=== PATIENT | male | born 1960 | race Caucasian/White ===

== ENCOUNTER → 2017-03-31 10:26 | Outpatient (CLI) | payer OTHER, SELFPAY ==
--- NOTE | 2017-03-31 08:00 | PET_ITS ---
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 COMPARISON EXAMINATION: CT of the chest, abdomen and pelvis reports dated 03/03/17, previous FDG PET study dated 07/24/15. INDEX LESION SIZE SUV INTERPRETATION NEW: Precarinal anterior, carinal level posterior mediastinum 53.9 mm largest (frame 238) 5.8 (max) Fulfills quantitative criteria for viable neoplasm NEW: Left adrenal gland 3.2 Fulfills quantitative criteria for viable neoplasm NEW: Right upper pelvic mesentery-soft tissue mass, lymph node 15.6 mm (frame 107) 3.5 Fulfills quantitative criteria for viable neoplasm NEW: Left and right lobe hepatic parenchyma 48.7 mm largest (frame 154) 10.7 (max) ratio > 2.0 Fulfills quantitative criteria for viable neoplasm PREVIOUS: Gastroesophageal junction, upper abdomen soft tissue adenopathy Demonstrate metabolic resolution on the current examination TECHNIQUE: Following the intravenous administration of 15 mCi of F-18 deoxyglucose via the right hand, multiplanar image acquisitions of the neck, chest, abdomen and pelvis to level of mid thigh, obtained at one hour post radiopharmaceutical administration contemporaneously interpreted with the current CT of the neck, chest, abdomen and pelvis to level of mid thigh, dated 03/31/[address] of the chest, abdomen and pelvis reports dated 03/03/17, previous FDG PET study dated 07/24/15 reveal: SERUM GLUCOSE LEVEL: 127 mg/dl. HEIGHT: 73 inches. WEIGHT: 180 lbs. FINDINGS: 1. Newly identified increased glucose metabolism is manifest in the precarinal anterior and carinal level posterior mediastinum. Uptake corresponds to soft tissue adenopathy, mass formation. The calculated maximum standard uptake value is 5.8. The maximal axial diameter of the largest metabolic abnormality is 53.9 mm. 2. Enhanced glucose concentration is currently identified in the left upper abdomen contiguous to the left adrenal gland. The calculated maximum standard uptake value is 3.2. 3. Facilitated glucose concentration noted in the right upper pelvic mesentery corresponding to soft tissue lymph node, mass within the pelvic mesenteric fat. The calculated standard uptake value is noted to be 3.5. The maximal axial diameter of the metabolic abnormality is 15.6 mm. 4. Augmented glucose concentration is demonstrated in the left lobe hepatic parenchyma (2.7/2.1) involving segment IV and right upper posterior abdomen involving the right lobe of the liver in the distribution of segment VIII. The calculated maximum standard uptake value is noted to be 10.7 with a lesion to liver background ratio greater than 2.0. The largest corresponding metabolic abnormality demonstrates a maximal axial diameter of 48.7 mm (transverse). 5. Normal physiologic distribution of the radiopharmaceutical is apparent in the splenic parenchyma, both renal units, bladder and visualized intestinal tract. There is uniform distribution of the radiopharmaceutical concentration compared on the cerebellar hemispheres and cerebral cortex. Diffuse intestinal tract activity is noted throughout all four quadrants of the abdominal-pelvic retroperitoneum, mesentery consistent with normal physiologic distribution of the radiopharmaceutical. Pertinent CT findings are as follows. CHEST: Atherosclerotic calcification is defined in the thoracic aorta without evidence of dilatation, aneurysm formation. Coronary arterial calcification is observed. There is evidence of previous partial esophagectomy with gastric pull-through procedure. Right-left subcentimeter axillary soft tissue densities are ametabolic. There are no parenchymal densities-nodules demonstrated in the right-left hemithorax manifesting quantitatively significant increased glucose metabolism. A right hemithorax pleural effusion demonstrates no evidence of facilitated glucose metabolism. ABDOMEN AND PELVIS: Atherosclerotic calcification is defined in the abdominal aorta without evidence of dilatation, aneurysm formation. Pelvic arterial calcification is observed. Bilateral inguinal soft tissue densities are non-glucose avid. Calcified phlebolith formation is noted in the bilateral lower hemipelvis. There are dystrophic calcifications within the prostate gland without evidence of facilitated glucose metabolism. SKELETAL: Degenerative changes defined in the cervical, thoracic and lumbar spine demonstrate no evidence for glucose hypermetabolism. PET/PET/CT Tumor Base -Thigh Subs IMPRESSION: 1. ABNORMAL EXAMINATION INDICATIVE OF MALIGNANT VIABLE NEOPLASM. 2. Increased glucose concentration newly defined in the precarinal anterior and carinal level posterior mediastinum fulfills quantitative criteria for viable neoplasm. (VanLaura et al, Journal of Clinical Oncology 16:2142, 1998). 3. Viable neoplasm is demonstrated in the left adrenal gland. (Brett, Journal of Nuclear Medicine 42:151 P 2002. Ijeoma winn al, Journal of Nuclear Medicine 45:1340, 2004). 4. The increase in glucose concentration noted in the right upper pelvic mesentery corresponding to soft tissue density fulfills quantitative criteria for viable neoplasm. 5. Visualized left and right lobe hepatic parenchymal hypermetabolic abnormalities fulfill quantitative criteria for viable neoplasm. (Delberomel et al, Archives of Surgery, 133:510 1998). 6. The previously identified gastroesophageal junction, gastric cardia, as well as upper abdomen perigastric soft tissue adenopathy hypermetabolic abnormalities noted on the FDG PET study dated 07/24/15 are not apparent on the current examination. 7. Overall, compared to the prior FDG PET study dated 07/24/15, there is interim development of multifocal defined viable neoplastic disease. There is interim metabolic resolution of the prior defined gastroesophageal junction, upper abdominal soft tissue adenopathy hypermetabolic abnormalities. Electronic Signature Caesar Brown D.O. Electronically Signed: Caesar Brown DO at 23:42 EST Tel , Service support ,
== END ==
PROVIDERS: Family Provider Family Medicine; PCP Family Medicine
DX: C16.0 Malignant neoplasm of cardia (principal)
CPT/HCPCS: 78815; A9552; A4216

== ENCOUNTER 2017-06-12 14:10 | Inpatient (IN) | payer OTHER, SELFPAY ==
[2017-06-12] VITALS (12 sets, daily range): BP systolic 72–107; BP diastolic 48–72; PULSE 80–101; RESP 12–22; TEMP 36.4–36.8; O2SAT 90–99; BMI 20.9; BMI 21.0
--- NOTE | 2017-06-12 14:35 | RAD_ITS ---
STUDY: X-RAY CHEST REASON FOR EXAM: Male, 57 years old. FEVER OF 102 AT HOME. HX OF ESOPHOGIS AND LIVER CA. RECENT SLEEP ASPIRATION PNEUMONIA TECHNIQUE: Frontal and lateral views of the chest. COMPARISON: None. FINDINGS: Ill-defined airspace opacities are seen in the right and left lung bases more prominent in the right middle lobe and right lower lobe are consistent with bilateral pneumonia. Small bilateral pleural effusions are noted. Normal size heart. Normal mediastinum and paulie. Normal visualized pulmonary arteries. Normal visualized aortic arch and descending thoracic aorta. Normal visualized thoracic spine. Normal visualized ribs, clavicles, and shoulders. There is no demonstrated abnormality of the visualized soft tissue structures of the upper abdomen. RAD/Chest PA and Lateral IMPRESSION: Bilateral pneumonia. Electronically Signed: Sarah Sanchez MD at 16:04 EDT Tel , Service support ,
--- NOTE | 2017-06-12 14:48 | ED.RN ---
pt in room and at rest o2 sats 88% on ra. pt coughs then o2 up to 94%. hr 101 and o2 placed at 2l/nc. dr. tabor in at bedside.
[2017-06-12] MEDS: Ondansetron 4 MG/2 ML Vial IV (15:21)
[2017-06-12] MEDS: 0.9% Normal Saline 1,000 ML 999 ML IV ×2 (15:21→16:32)
[2017-06-12] MEDS: HYDROmorphone 1 MG/ML Syringe IV (15:21)
[2017-06-12 15:56] LABS: Absolute Lymphocyte Count 0.26 X10^3/ul (0.83-4.51); Absolute Neutrophil Count 20.8 X10^3/uL (2.0-7.7); Basophil# 0.01 X10^3/uL; Eosinophil# 0.03 X10^3/uL; Eosinophils% 0.1 % (0-5); Hematocrit 32.4 % (40-54); Lymphocyte # 0.26 X10^3/ul (4.0); Lymphocyte % 1.2 % (19-41); Mean Corpuscular Hgb 32.9 pg (27.0-32.0); Monocyte# 1.03 X10^3/uL; Monocyte% 4.7 % (0-10); Neutrophil # 20.76 X10^3/uL (2.7-7.7); Neutrophil % 93.8 % (47-70); Platelet Count 307 K/mm3 (150-450); Red Blood Count 3.34 M/mm3 (4.6-6.2); White Blood Count 22.1 K/mm3 (4.4-11.0)
[2017-06-12 15:57] LABS: International Normalized Ratio 1.4; Partial Thromboplast Time 39.1 Seconds (24.1-36.2); Prothrombin Time (Protime)PT. 17.4 SECONDS (11.7-14.9)
[2017-06-12 16:00] LABS: Differential Indicated SCAN CRITERIA MET; POSITIVE COUNT NO; POSITIVE DIFFERENTIAL YES; POSITIVE MORPHOLOGY NO
[2017-06-12 16:04] LABS: Lactic Acid 1.4 mmol/L (0.4-2.0)
[2017-06-12 16:08] LABS: ALB/GLOB Ratio 0.8 RATIO (0.9-2.4); AST(SGOT) 31 U/L (15-37); Alanine Aminotransfer ALT/SGPT 12 U/L (16-61); Albumin, Serum 3.2 g/dL (3.2-5.0); Alkaline Phosphatase 77 U/L (45-117); Anion Gap 9 (5-15); BUN 24 mg/dL (7-18); BUN/Creat Ratio 16.6 RATIO (10-20); Calcium,Total 9.1 mg/dL (8.5-10.1); Chloride 95 mmol/L (98-107); Creatinine, Serum 1.45 mg/dL (0.70-1.30); EST Glomerular Filtration Rate 53 mL/min (>60); Est Glom Filt Rate - Afr Amer 64 mL/min (>60); Estimated Creatinine Clearance 26.19 ml/min; Globulin 3.8 g/dL (2.2-4.2); Glucose 105 mg/dL (74-106); Potassium 3.8 mmol/L (3.5-5.1); Sodium Level 133 mmol/L (136-145)
[2017-06-12 16:21] LABS: Differential Comment SCANNED
[2017-06-12] MEDS: fentaNYL 100 MCG/2 ML Ampul 50 MCG IV (16:29)
--- NOTE | 2017-06-12 16:42 | ED.RN ---
pain to back still a 7/10 and pt medicated with fentanyl ivp. 2nd liter up wide open to lac as rt arm iv flagyl up and running. pt to get 250cc after iv flagyl and other atb completed. dr. asif in to see pt for admission. family in at bedside
--- NOTE | 2017-06-12 16:45 | ED.DCSUM_ITS ---
- ER Visit Summary Date of Service: 06/12/17 Chief Complaint: Fever History of Present Illness: The patient is a [address] Mo and Dr. Yuriy Franz III. 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 This is caused him to have difficulty speaking and to have chronic aspiration. Patient reports that he had shaking chills this morning and his checked his temperature and it was 102?. States that he has a chronic cough that is productive of agosto sputum without blood. Does report mild shortness of breath. He has had nausea. No abdominal pain, vomiting, or diarrhea. He denies any other complaints. Physical Examination: Vitals: 97.6, 91/48, 101, 18, 90% on room air which is hypoxic. General: Well-developed, but cachectic Head: Normocephalic atraumatic. Neck: Supple, no lymphadenopathy. No JVD. Nontender. Cardiovascular: Regular rate and rhythm. No murmurs. Respiratory: No respiratory distress. Rhonchi at the bases bilaterally. Abdominal: Soft, nontender, nondistended, normal bowel sounds. No guarding, rebound, or peritoneal signs. Is a palpable mass in the epigastric region. Extremities: Nontender, no edema. Skin: Normal color, no rash. Neurologic: Alert and oriented ?3. Cranial nerves II through XII are intact. Normal strength and sensation. Psych: Normal affect. Test Results: Chest x-ray shows bilateral lower lobe and right middle lobe infiltrates. CBC is marked for white count 22.1, H&H of 11.032.4, segmented neutrophils of 94, lymphs lites of 1. Chem-7 is marked for sodium 133, chloride 95, BUN of 24, creatinine 1.45. INR is 1.4. PTT is 39.1. LFTs marked for an ALT of 12. Lactic acid is 1.4. Emergency Department Course and Treatment: Patient was given 30 cc/kg bolus of normal saline. His mean arterial pressures remained over 65. He was given Dilaudid, Zofran, fentanyl IV. Initially I wrote for cefotaxime and Flagyl IV. I was contacted by pharmacy and informed that cefotaxime is on back order. After discussion with them he was given a dose of Levaquin in addition to Flagyl as this will also cover atypicals. I did have a prolonged discussion with the patient and his family about his wishes. He would like to be intubated if necessary. He would also like a central line be placed on pressors. Fortunately those things are not necessary at this time. Treatment Plan: Patient was discussed with Dr. Chirinos. He will be admitted to the hospital for further evaluation and treatment. Disposition: Admitted in critical condition. Impression: 1. Aspiration pneumonia. 2. Sepsis. 3. Critical care time 30 minutes. This note was generated with [employer] dictation software. It may contain incorrect words, spelling, and punctuation that were not noted in review of the chart prior to signing ED Disposition - Plan for ED Patient: Chief Complaint: Fever Referrals: Yuriy Franz III, MD [Primary Care Provider] -
--- NOTE | 2017-06-12 17:08 | PCM.HP.STD ---
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 In ED, she was found hypotensive 91/48, heart rate 101, pulse ox 90% on room air, mild tachypnea and chest x-ray from the revealed bilateral lower lobe pneumonia in pattern with aspiration pneumonia. Patient also complained of severe back pain which is chronic in nature and is appointment with Dr. Vance on Friday. He is not able to sleep at night because of severe back pain but denies orthopnea. Mild shortness of breath on exertion, attributes to his back pain. Patient is getting a second liter of normal saline bolus and Levaquin and Flagyl in ER. Past Medical History Past Medical History (Chronic Problems): Chronic Problems Metastasis from esophageal cancer (Chronic) Chronic back pain (Chronic) Allergies aspirin Allergy (Verified 06/12/17 14:15) Unknown Penicillins Allergy (Verified 06/12/17 16:56) Rash STEROIDS Adverse Reaction (Uncoded 06/12/17 16:56) Pt is not to have d/t alternative cancer therapy Home Medications: Ambulatory Orders Medication Instructions Recorded Loratadine [Claritin] 10 mg PO DAILY PRN 08/10/15 Omeprazole [Prilosec] 40 mg PO DAILY PRN 08/10/15 Biocellular 2 cap PO TIDCM 06/12/17 D3k2 2 each PO BID 06/12/17 Ling Harinder 2 each PO BID 06/12/17 Macrophage 0.4 units SQ DAILY 06/12/17 Macrophage Farnham 0.5 units INHALATION DAILY 06/12/17 Oxycodone HCl [Oxycodone HCl] 10 mg SL Q4H PRN PRN 06/12/17 Performance 2 cap PO TIDCM 06/12/17 Rivaroxaban [Xarelto] 20 mg PO DAILY 06/12/17 Sea Extract 15 drop PO BID 05/03/18 Ultra Pro 2 cap PO TID 06/12/17 Smoking Status: Former smoker - About 2 years ago. History of multiple relapses. Started in his 20s, about 30 pack years of smoking Review of Systems Constitutional: Reports: Chills, Fever, Malaise HEENT: Denies: Head Aches, Sinus Congestion, Sinus Drainage Cardiovascular: Denies: Chest Pain, Palpitations Respiratory: Reports: Cough, Shortness of breath upon exertion, Sputum production. Denies: Hemoptysis, Shortness of breath at rest Gastrointestinal: Denies: Abdominal Pain, Nausea, Vomiting Genitourinary: Denies: Dysuria Musculoskeletal: Reports: Back Pain. Denies: Joint Pain, Joint Tenderness Skin: Denies: Rash, Wounds Neurological: Denies: Numbness, Tingling, Focal weakness Psychiatric: Denies: Anxiety, Depression, Homicidal Ideations, Suicidal Ideations Hematologic/ Lymphatic: Denies: Easy Bruising, Easy Bleeding VTE Information - Inpt Only VTE Present on Admission: No VTE Mechan Device Prophylaxis: SCD's VTE Pharm Prophylaxis ordered?: No Patient Problems: Active and Suspected Problems Aspiration pneumonia (Acute) Hypotension (Acute) - Physical Exam General: Alert, Oriented x3, Cooperative HEENT: Atraumatic, PERRLA, EOMI, Normocephalic Oral: Dry Mucosa Neck: Supple, No JVD, Negative Carotid Bruits Lungs: Diminished, Rales - Rales present in right lung base, Tachypneic Cardiovascular: Regular rate, Regular Rhythm, Normal S1, Normal S2, No murmurs Abdomen: Bowel Sounds Present, Soft, Non Tender, Non-Distended Extremities: No edema, Capillary Refill Less than 3 Seconds Skin: No rashes, No breakdown Musculoskeletal: Arthritic Changes, Muscle Wasting, Tenderness - Tenderness to L4-L5 spine Neurological: Cranial nerves II-XII grossly intact Psych/Mental Status: Normal Affect, Appropriate Vital Signs Temp Pulse Resp BP Pulse Ox 97.7 F L 91 17 93/60 99 06/12/17 15:35 06/12/17 16:00 06/12/17 16:00 06/12/17 16:00 06/12/17 16:00 Assessment/Plan Active and Suspected Problems Aspiration pneumonia (Acute) Hypotension (Acute) The patient is a 57 year old M with history of esophageal cancer with metastasis to liver and 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 In ED, she was found hypotensive 91/48, heart rate 101, pulse ox 90% on room air, mild tachypnea and chest x-ray from the revealed bilateral lower lobe pneumonia in pattern with aspiration pneumonia. Patient also complained of severe back pain which is chronic in nature and is appointment with Dr. Vance on Friday. He is not able to sleep at night because of severe back pain but denies orthopnea. Mild shortness of breath on exertion, attributes to his back pain. Patient is getting a second liter of normal saline bolus and Levaquin and Flagyl in ER. 1. SIRS with sepsis (hypotensive 91/48, tachycardic heart rate 101, pulse ox 90% on room air, mild tachypnea, RR 22/min) bilateral lower lobes aspiration pneumonia: Lactic acid is normal. Patient is being admitted on PCU. IV fluid resuscitation. Started on IV Levaquin and Flagyl and will continue it. needs a speech and swallow evaluation. Pneumonia workup including a respiratory panel ordered. 2. Esophageal cancer stage IV status post esophagectomy and gastric pull-up surgery with metastases to liver and mass-effect on recurrent laryngeal nerve: Patient had aspiration, chronic in nature secondary to vocal nerve palsy. Consult Dr. Gomez. 3. Acute on chronic back pain, L3-L4 lumbar spine: Patient said he had an x-ray done by Dr. Gomez and does not think metastatic. Consult Dr. Kim. Lumbar spine x-ray ordered. 4. Chronic nicotine use, ex smoker with possibility of COPD: On bronchodilator 5. Moderate protein calorie malnutrition secondary to esophageal cancer: [employer] consult. Nutritional supplement. Advanced directive: As per the , patient has living will at home. Patient and his wants everything done for distention for reversible causes. Once it is deemed irreversible but do not want life support measures. Therefore, currently patient is full code. Total time spent in face to face encounter regarding discussion of advanced directive; 17 minutes Clinical Impression(s) from Imaging Studies Chest X-Ray 06/12/17 14:35 IMPRESSION: Bilateral pneumonia. Electronically Signed: Sarah Sanchez MD at 16:04 EDT Tel , Service support , Laboratory Results 06/12/17 15:35: WBC 22.1 H, RBC 3.34 L, Hgb 11.0 L, Hct 32.4 L, MCV 97.0 H, MCH 32.9 H, MCHC 34.0, RDW 13.0, RDW Differential 44.0 H, Plt Count 307, MPV 10.0, Immature Gran % (Auto) 0.200, Neut % (Auto) 93.8 H, Lymph % (Auto) 1.2 L, [place] % (Auto) 4.7, Eos % (Auto) 0.1, Baso % (Auto) 0.0, Absolute Neuts (auto) 20.8 H, Absolute Lymphs (auto) 0.26 L, Total Counted Not Reportable, Differential Comment SCANNED 06/12/17 15:35: PT 17.4 H, INR 1.4, APTT 39.1 H 06/12/17 15:35: Sodium 133 L, Potassium 3.8, Chloride 95 L, Carbon Dioxide 29.0, Anion Gap 9, BUN 24 H, Creatinine 1.45 H, Estim Creat Clear Calc 26.19, Est GFR (MDRD) Af Amer 64, Est GFR (MDRD) Non-Af 53 L, BUN/Creatinine Ratio 16.6, Glucose 105, Calcium 9.1, Total Bilirubin 0.80, AST 31, ALT 12 L, Alkaline Phosphatase 77, Total Protein 7.0, Albumin 3.2, Globulin 3.8, Albumin/Globulin Ratio 0.8 L 06/12/17 15:35: Lactic Acid 1.4 Code Visit Inpatient E&M: 96165 Init Hosp L3 Procedures: 99719 Advncd Care Plan 30 Min
--- NOTE | 2017-06-12 17:18 | HP.PCM_ITS ---
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 In ED, she was found hypotensive 91/48, heart rate 101, pulse ox 90% on room air, mild tachypnea and chest x-ray from the revealed bilateral lower lobe pneumonia in pattern with aspiration pneumonia. Patient also complained of severe back pain which is chronic in nature and is appointment with Dr. Vance on Friday. He is not able to sleep at night because of severe back pain but denies orthopnea. Mild shortness of breath on exertion, attributes to his back pain. Patient is getting a second liter of normal saline bolus and Levaquin and Flagyl in ER. Past Medical History Past Medical History (Chronic Problems): Chronic Problems Metastasis from esophageal cancer (Chronic) Chronic back pain (Chronic) Allergies aspirin Allergy (Verified 06/12/17 14:15) Unknown Penicillins Allergy (Verified 06/12/17 16:56) Rash STEROIDS Adverse Reaction (Uncoded 06/12/17 16:56) Pt is not to have d/t alternative cancer therapy Home Medications: Ambulatory Orders Medication Instructions Recorded Loratadine [Claritin] 10 mg PO DAILY PRN 08/10/15 Omeprazole [Prilosec] 40 mg PO DAILY PRN 08/10/15 Biocellular 2 cap PO TIDCM 06/12/17 [id number] 2 each PO BID 06/12/17 Ling Harinder 2 each PO BID 06/12/17 Macrophage 0.4 units SQ DAILY 06/12/17 Macrophage Daphne 0.5 units INHALATION DAILY 06/12/17 Oxycodone HCl [Oxycodone HCl] 10 mg SL Q4H PRN PRN 06/12/17 Performance 2 cap PO TIDCM 06/12/17 Rivaroxaban [Xarelto] 20 mg PO DAILY 06/12/17 Sea Extract 15 drop PO BID 05/03/18 Ultra Pro 2 cap PO TID 06/12/17 Smoking Status: Former smoker - About 2 years ago. History of multiple relapses. Started in his 20s, about 30 pack years of smoking Review of Systems Constitutional: Reports: Chills, Fever, Malaise HEENT: Denies: Head Aches, Sinus Congestion, Sinus Drainage Cardiovascular: Denies: Chest Pain, Palpitations Respiratory: Reports: Cough, Shortness of breath upon exertion, Sputum production. Denies: Hemoptysis, Shortness of breath at rest Gastrointestinal: Denies: Abdominal Pain, Nausea, Vomiting Genitourinary: Denies: Dysuria Musculoskeletal: Reports: Back Pain. Denies: Joint Pain, Joint Tenderness Skin: Denies: Rash, Wounds Neurological: Denies: Numbness, Tingling, Focal weakness Psychiatric: Denies: Anxiety, Depression, Homicidal Ideations, Suicidal Ideations Hematologic/ Lymphatic: Denies: Easy Bruising, Easy Bleeding VTE Information - Inpt Only VTE Present on Admission: No VTE Mechan Device Prophylaxis: SCD's VTE Pharm Prophylaxis ordered?: No Patient Problems: Active and Suspected Problems Aspiration pneumonia (Acute) Hypotension (Acute) - Physical Exam General: Alert, Oriented x3, Cooperative HEENT: Atraumatic, PERRLA, EOMI, Normocephalic Oral: Dry Mucosa Neck: Supple, No JVD, Negative Carotid Bruits Lungs: Diminished, Rales - Rales present in right lung base, Tachypneic Cardiovascular: Regular rate, Regular Rhythm, Normal S1, Normal S2, No murmurs Abdomen: Bowel Sounds Present, Soft, Non Tender, Non-Distended Extremities: No edema, Capillary Refill Less than 3 Seconds Skin: No rashes, No breakdown Musculoskeletal: Arthritic Changes, Muscle Wasting, Tenderness - Tenderness to L4-L5 spine Neurological: Cranial nerves II-XII grossly intact Psych/Mental Status: Normal Affect, Appropriate Vital Signs Temp Pulse Resp BP Pulse Ox 97.7 F L 91 17 93/60 99 06/12/17 15:35 06/12/17 16:00 06/12/17 16:00 06/12/17 16:00 06/12/17 16:00 Assessment/Plan Active and Suspected Problems Aspiration pneumonia (Acute) Hypotension (Acute) The patient is a 57 year old M with history of esophageal cancer with metastasis to liver and 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 In ED, she was found hypotensive 91/48, heart rate 101, pulse ox 90% on room air, mild tachypnea and chest x-ray from the revealed bilateral lower lobe pneumonia in pattern with aspiration pneumonia. Patient also complained of severe back pain which is chronic in nature and is appointment with Dr. Vance on Friday. He is not able to sleep at night because of severe back pain but denies orthopnea. Mild shortness of breath on exertion, attributes to his back pain. Patient is getting a second liter of normal saline bolus and Levaquin and Flagyl in ER. 1. SIRS with sepsis (hypotensive 91/48, tachycardic heart rate 101, pulse ox 90 % on room air, mild tachypnea, RR 22/min) bilateral lower lobes aspiration pneumonia: Lactic acid is normal. Patient is being admitted on PCU. IV fluid resuscitation. Started on IV Levaquin and Flagyl and will continue it. needs a speech and swallow evaluation. Pneumonia workup including a respiratory panel ordered. 2. Esophageal cancer stage IV status post esophagectomy and gastric pull-up surgery with metastases to liver and mass-effect on recurrent laryngeal nerve: Patient had aspiration, chronic in nature secondary to vocal nerve palsy. Consult Dr. Gomez. 3. Acute on chronic back pain, L3-L4 lumbar spine: Patient said he had an x- ray done by Dr. Gomez and does not think metastatic. Consult Dr. Kim. Lumbar spine x-ray ordered. 4. Chronic nicotine use, ex smoker with possibility of COPD: On bronchodilator 5. Moderate protein calorie malnutrition secondary to esophageal cancer: Farm Equipment Engine Mechanic consult. Nutritional supplement. Advanced directive: As per the , patient has living will at home. Patient and his wants everything done for distention for reversible causes. Once it is deemed irreversible but do not want life support measures. Therefore, currently patient is full code. Total time spent in face to face encounter regarding discussion of advanced directive; 17 minutes Clinical Impression(s) from Imaging Studies Chest X-Ray 06/12/17 14:35 IMPRESSION: Bilateral pneumonia. Electronically Signed: Sarah Sanchez MD at 16:04 EDT Tel , Service support , Laboratory Results 06/12/17 15:35: WBC 22.1 H, RBC 3.34 L, Hgb 11.0 L, Hct 32.4 L, MCV 97.0 H, MCH 32.9 H, MCHC 34.0, RDW 13.0, RDW Differential 44.0 H, Plt Count 307, MPV 10.0, Immature Gran % (Auto) 0.200, Neut % (Auto) 93.8 H, Lymph % (Auto) 1.2 L, [place] % (Auto) 4.7, Eos % (Auto) 0.1, Baso % (Auto) 0.0, Absolute Neuts (auto) 20.8 H , Absolute Lymphs (auto) 0.26 L, Total Counted Not Reportable, Differential Comment SCANNED 06/12/17 15:35: PT 17.4 H, INR 1.4, APTT 39.1 H 06/12/17 15:35: Sodium 133 L, Potassium 3.8, Chloride 95 L, Carbon Dioxide 29.0 , Anion Gap 9, BUN 24 H, Creatinine 1.45 H, Estim Creat Clear Calc 26.19, Est GFR (MDRD) Af Amer 64, Est GFR (MDRD) Non-Af 53 L, BUN/Creatinine Ratio 16.6, Glucose 105, Calcium 9.1, Total Bilirubin 0.80, AST 31, ALT 12 L, Alkaline Phosphatase 77, Total Protein 7.0, Albumin 3.2, Globulin 3.8, Albumin/Globulin Ratio 0.8 L 06/12/17 15:35: Lactic Acid 1.4 Code Visit Inpatient E&M: 76086 Init Hosp L3 Procedures: 72305 Advncd Care Plan 30 Min
[2017-06-12] MEDS: levoFLOXacin IV 750 MG/150 ML BAG 100 MG IV (17:28)
--- NOTE | 2017-06-12 18:14 | RAD_ITS ---
STUDY: X-RAY - LUMBAR SPINE REASON FOR EXAM: Male, 57 years old. Low back pain. Remote history of injury. TECHNIQUE: 3 view(s) of the lumbar spine were obtained. COMPARISON: PET/CT March 31, 2017 FINDINGS: Normal lumbar lordosis. There is a 7.5 degree levoscoliosis of the lumbar spine centered near L3-4. There is a grade 1 L4-5 spondylolisthesis, as well as slight leftward subluxation of L4 on L5. There is multilevel endplate spondylosis of the lumbar vertebrae. There is multi-level degenerative disc disease with multi-level disc space narrowing, most prominent at L4-5. There is no demonstrated fracture. There are hypertrophic degenerative arthroses of some lumbar facet articulations, most prominent at L4-5. There is atherosclerotic calcification of the abdominal aorta. Incidental note of numerous surgical clips in the medial left upper quadrant of the abdomen. RAD/Lumbar Spine 2 or 3 Views IMPRESSION: Grossly stable degenerative changes of the spine, as detailed above, most prominent at L4-5. Electronically Signed: Jose Gillespie MD at 19:02 EDT , Service support ,
[2017-06-12] MEDS: Ipratropium/Albuterol Sulfate 3 ML AMPUL.NEB INHALATION (19:20)
--- NOTE | 2017-06-12 19:25 | RAD_ITS ---
XR Orbits Clearance FB INDICATION: CLEARANCE FOR MRI COMPARISON: None TECHNIQUE: 2 views of the orbits FINDINGS: The orbits appear intact. There is no evidence of radiopaque form bodies. Frontal sinuses clear. RAD/Orbits for Foreign Body IMPRESSION: No evidence of metallic foreign body, clearance for MRI. at 2013 Reported and signed by: Ronel Lane MD Electronically Signed: Ronel Lane MD at 20:11 EDT Tel , Service support ,
[2017-06-12] MEDS: 0.9% Normal Saline 1,000 ML 500 ML IV (19:30)
[2017-06-12] MEDS: Morphine 4 MG/ML Syringe IV ×2 (19:43→22:28)
[2017-06-12] MEDS: oxyCODONE CR 15 MG Tablet PO (19:44)
[2017-06-12] MEDS: Dext 5%-0.45% NS 1,000 ML 150 ML IV (21:12)
[2017-06-12] MEDS: 0.9% NaCl Peripheral Flush Adult/Peds IV (22:28)
[2017-06-12] MEDS: Famotidine 20 MG Tablet PO (22:29)
[2017-06-13] VITALS (16 sets, daily range): BP systolic 96–109; BP diastolic 60–78; PULSE 79–99; RESP 16–18; TEMP 36.2–37.6; O2SAT 90–98
[2017-06-13 00:45] LABS: Bacteria 0 SEEN /hpf (None Seen); Mucous, Urine 0 SEEN /hpf (<or=2+); Red Blood Cells-Urine 0 SEEN /hpf (0-5); Squamous Epithelial Cells - UA 0 SEEN /hpf (0-5); White Blood Cells 0 SEEN /hpf (0-5)
[2017-06-13 00:46] LABS: Color, Urine Yellow (Yellow); Glucose, Dipstick Normal (Normal); Ketone-Dipstick 50 mg/dl (Negative); Leukocyte Esterase-Dipstick Negative /ul (Negative); Nitrite-Dipstick Negative (Negative); Occult Blood-Urine Negative /ul (Negative); Protein-Dipstick Negative (Negative); Specific Gravity, Urine 1.015 (1.002-1.030); Urine Bilirubin Dipstick Negative (Negative); Urine Clarity Clear (Clear); Urine Urobilinogen Normal (Normal); Urine pH 6.5 (5.0 - 8.0)
[2017-06-13] MEDS: oxyCODONE Soln 5 MG/0.25 ML PO.SYRINGE 10 MG SL ×2 (01:24→07:40)
[2017-06-13] MEDS: Dext 5%-0.45% NS 1,000 ML 150 ML IV ×3 (04:04→20:48)
[2017-06-13] MEDS: Morphine 4 MG/ML Syringe IV (04:12)
[2017-06-13] MEDS: Mag Hydrox/Al Hydrox/Simeth 30 ML UDC PO ×2 (04:12→13:51)
[2017-06-13] MEDS: 0.9% NaCl Peripheral Flush Adult/Peds IV ×7 (04:13→22:03)
--- NOTE | 2017-06-13 06:00 | MRI_ITS ---
STUDY: MRI LUMBAR SPINE WITHOUT CONTRAST REASON FOR EXAM: Male, 57 years old. low back pain, left pelvis pain h/o esophageal ca mets to the liver TECHNIQUE: Standardized fat and water weighted pulse sequences were obtained in the sagittal and axial planes. COMPARISON: X-ray June 12, 2017 FINDINGS: There is a mildly exaggerated lumbar lordosis. There is a mild levoscoliosis. Normal conus medullaris that terminates at the T12-L1 level. There is grade 1 anterolisthesis at L4-5. There is loss of disc height at L2-3 through L5-S1. Vertebral body heights are maintained. There is fatty replacement of bone marrow of T12 and the superior half of L1 which may represent prior radiation therapy. There is a benign-appearing cyst in the L5 vertebral body. There are multiple scattered small foci of fat/hemangiomas. There is multilevel facet arthropathy and ligamentum flavum hypertrophy. This is severe at L4-5 bilaterally and on the left at L5-S1. T12/L1: Sagittal images only were obtained. Normal. L1/2: Normal. L2/3: There is a diffuse bulge. There is impression on the ventral thecal sac and mild right worse than left neuroforaminal stenosis. L3/4: There is a small broad-based left foraminal protrusion. There is no central canal stenosis. There is mild bilateral neuroforaminal stenosis. L4/5: There is no disc bulge or herniation. There is impression on the ventral thecal sac and mild right without left neuroforaminal stenosis. L5/S1: There is a diffuse bulge. There is no central canal stenosis. There is mild bilateral neuroforaminal stenosis. Normal visualized sacral ala. There appears to be significant left hydronephrosis. MRI/Spine Lumbar (Routine) IMPRESSION: Multilevel degenerative changes, as described above, including facet arthropathy. L2/3: There is a diffuse bulge. There is mild right worse than left neuroforaminal stenosis. L3/4: There is a small broad-based left foraminal protrusion. There is mild bilateral neuroforaminal stenosis. L4/5: There is mild right neuroforaminal stenosis. L5/S1: There is a diffuse bulge. There is mild bilateral neuroforaminal stenosis. There appears to be significant left hydronephrosis. Electronically Signed: Melida Phillip MD at 13:26 EDT , Service support ,
[2017-06-13] MEDS: Ipratropium/Albuterol Sulfate 3 ML AMPUL.NEB INHALATION ×3 (07:28→21:52)
--- NOTE | 2017-06-13 08:24 | PCM.CONS.B ---
Problem List (1) Aspiration pneumonia Status: Acute (2) Metastasis from esophageal cancer Status: Chronic (3) Chronic back pain Status: Chronic Qualifiers: Back pain location: back pain in unspecified location Back pain laterality: left Qualified Code(s): M54.9 - Dorsalgia, unspecified; G89.29 - Other chronic pain - Consult Date of Consult: 06/13/17 - Reason for Consult HPI: The patient is a 57?yo male who has a PMH significant for HTN (essential; controlled on medication) who developed dysphagia for meat and dry foods about 4-5 months prior to presentation. Was empirically started in PPI. Symptoms however progressed and he was referred for EGD. Also has lost about 15 lbs since earlier this year. ?? EGD 07/03/2015: large, fungating mass with no bleeding and with no stigmata of recent bleeding was found in the lower third of the esophagus. The mass was partially obstructing. Biopsies were taken with a cold forceps for histology. Estimated blood loss: none. This was at 42 cm. The scope could not pass through and no lumin was seen. No dilation done. ?? Pathology: Distal esophagus, biopsy - At least intramucosal adenocarcinoma, focally present beneath squamous epithelium. ?? CT C/A/P 07/05/2015: CT CHEST FINDINGS: Lung findings: No evidence of noncalcified nodules, infiltrates or pleural effusions. Heart: Normal in size. Some thickening of the lower esophageal wall noted. Mediastinal and hilar findings: No enlarged lymph nodes in the mediastinum or hilar regions. Lymph nodes: No enlarged axillary or supraclavicular nodes are seen. Bony structures: No significant abnormalities identified. CT ABDOMEN FINDINGS: Liver: Liver texture unremarkable. No focal masses. Biliary tree: Common duct normal in size. No intrahepatic bile duct dilatation is seen. Pancreas: Unremarkable Spleen: Spleen normal size. No focal masses. Adrenals: Normal size. Kidneys: Are seen to function bilaterally. No focal abnormalities. Lymph nodes: No enlarged lymph nodes are seen. Retroperitoneum: The aorta is normal in size. Otherwise unremarkable. CT PELVIS FINDINGS: Lymph Nodes: No enlarged lymph nodes. Urinary bladder: Urinary bladder wall mildly thickened. ?? Underwent EGD/EUS. On EGD scope was passed into the stomach. EUS, the scope was not able to be passed into the stomach. Ultrasound revealed one perigastric lymph node. Otherwise the tumor was noted to extend into the cardia and invade to the adventitial layer. ?? PET scan revealed one isolated lymph node metastasis to the left of midline perigastric area most likely corresponding with the node seen on ultrasound. ?? Previous therapy: 1) FOLFOX (CASE 6213 clinical trial). 2) Surgery on 11/09/2015. 3) Adjuvant chemo/radiation with carbo/paciltaxel. He underwent a CT-guided biopsy of the liver lesion at [facility]. 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 ? Was diagnosed with extensive DVT of the left arm. He was started on Lovenox. Previous therapy for metastatic disease: 1) ECX- partial response with stable lesion in the liver. 2) Herceptin/cisplatin &?capcitabine. 3) Palliative radiation to upper mediastinum completed 04/18/2017. ?? [employer] testing in May showed no actionable targets. patient has been pursuing holistic therapies. He's been aspirating. He feels he doesn't aspirate much at all if he's eating or drinking but when he is sometimes lying in a recumbent position he definitely wakes up with reflux and coughing/aspiration. Last night he was brought to the emergency room for this. He had been febrile at home up to 102. Chest x-ray demonstrated a suggestion of bilateral lower lobe infiltrates worse on the right. He was started on antibiotics. This morning he is feeling better. He is not requiring any oxygen. He has minimal cough. He knows that if he sleeps in a more upright position he definitely doesn't aspirate is much even when sleeping. the other main issue is pain in the left pelvis. The pain is sharp and is below the posterior iliac crest on the left. Recent plain films demonstrated no abnormality to suggest metastatic disease. He had degenerative changes of lumbar spine. The pain is very sharp and hurts to lie on it and it hurts especially when walking/moving his leg. He's been taking liquid oxycodone with minimal relief. He states the pain does not radiate down his leg. He has had this pain off and on since an injury years ago but typically when he would get chiropractic manipulation, the pain would resolve. Lately the pain has been persistent for about a month and has been getting worse. Allergies aspirin Allergy (Verified 06/12/17 14:15) Unknown Penicillins Allergy (Verified 06/12/17 16:56) Rash STEROIDS Adverse Reaction (Uncoded 06/12/17 16:56) Pt is not to have d/t alternative cancer therapy Current Medications Acetaminophen (Tylenol) 650 mg PO Q4H PRN PRN PRN Reason: Mild-Moderate Pain/Headache Acetaminophen (Tylenol) 650 mg PO Q6H PRN PRN PRN Reason: Mild Pain (scale 0-3)/T>100.7 Al Hydroxide/Mg Hydroxide (Mylanta Ii) 30 ml PO Q6H PRN PRN PRN Reason: Gastric Burning Last Admin: 06/13/17 04:12 Dose: 30 ml Albuterol Sulfate (Ventolin Aerosols) 2.5 mg INHALATION Q2H PRN PRN PRN Reason: SHORTNESS OF BREATH Albuterol/Ipratropium (Duoneb) 3 ml INHALATION Q4HWA.RT CONG Last Admin: 06/13/17 07:28 Dose: 3 ml Bisacodyl (Dulcolax) 10 mg RECTAL DAILY PRN PRN PRN Reason: Constipation Docusate Sodium (Colace) 200 mg PO BID PRN PRN PRN Reason: Constipation Famotidine (Pepcid) 20 mg PO BID [facility] Last Admin: 06/12/17 22:29 Dose: 20 mg Dextrose/Sodium Chloride () 1,000 mls @ 150 mls/hr IV .Q6H40M [facility] Last Admin: 06/13/17 04:04 Dose: 150 mls/hr Levofloxacin 750 mg/ N/A 150 mls @ 100 mls/hr IV Q48 [facility] Metronidazole 500 mg/ N/A 100 mls @ 100 mls/hr IV Q8 [facility] Last Admin: 06/13/17 06:31 Dose: 100 mls/hr Loratadine (Claritin) 10 mg PO DAILY PRN PRN Reason: ALLERGIES Morphine Sulfate () 1 - 2 mg IV Q4H PRN PRN PRN Reason: SEVERE PAIN (6-10/10) Last Admin: 06/13/17 04:12 Dose: 2 mg Nutritional Formula (Lactose Free) (Ensure Enlive) 120 ml PO 4X/DAY [facility] Last Admin: 06/12/17 22:29 Dose: Not Given Ondansetron HCl (Zofran) 4 mg IV Q6H PRN PRN PRN Reason: NAUSEA Oxycodone HCl (Oxyfast) 10 mg SL Q4H PRN PRN Reason: SEVERE PAIN (6-10/10) Last Admin: 06/13/17 07:40 Dose: 10 mg Oxycodone HCl (Oxycontin) 15 mg PO BID [facility] Last Admin: 06/12/17 19:44 Dose: 15 mg Polyethylene Glycol (Miralax) 17 gm PO DAILY [facility] Rivaroxaban (Xarelto) 20 mg PO DAILY@1700 [facility] Sodium Chloride () 5 - 30 ml IV UD PRN PRN Reason: SALINE FLUSH Last Admin: 06/13/17 04:13 Dose: 10 ml Zolpidem Tartrate (Ambien (Generic)) 5 mg PO QHS PRN PRN PRN Reason: SLEEP ROS: Constitutional: Neuro: Denies [place], vertigo, dizziness. HEENT: No recent change in voice, vision or hearing. Resp: Denies shortness of breath at rest. CVS: Denies exertional chest pain, PND, orthopnea and LE edema. GI: As above. : Denies dysuria or gross hematuria. No symptoms of bladder outlet obstruction. Endo: Denies hot flashes. Denies polyuria and polydipsia. Denies heat and cold intolerance. Musculoskeletal: As above. Derm: Denies rash. Denies jaundice and diffuse pruritis. Heme: Denies unusual bleeding and unexplained bruising. Psych: Normal mood. PHYSICAL EXAM: Vitals: Vital Signs Temp 98.0 F 06/13/17 04:36 Pulse 86 06/13/17 07:27 Resp 16 06/13/17 04:36 BP 108/60 06/13/17 04:36 Pulse Ox 98 06/13/17 04:36 Intake & Output 06/11/17 06/12/17 06/13/17 23:59 23:59 23:59 Intake Total 2867 / 2867 Balance 2867 / 2867 Weight: 72.3 kg Intake: Oral 60 / 60 IV fluid/meds 2807 / 2807 Other: Number of Voids 2 No acute distress. EYES: Sclerae are anicteric bilaterally. Husky/whisper voice. NECK: Supple. LYMPHATIC: There is no palpable cervical, supraclavicular adenopathy. RESPIRATORY: Mildly decreased air entry in all elliott. 3 wheezes in the right lower and mid lung zone. CARDIOVASCULAR: Rhythm is regular. Normal intensity S1/S2. ABDOMEN: The abdomen is nondistended.mild tenderness area of scar from previous jejunostomy tube. Extremities: No swelling or edema. SKIN: No jaundice or rash. 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 No focal motor weakness. DTRs normal. Laboratory Results - last 24 hr 06/12/17 06/12/17 06/12/17 15:35 15:35 15:35 WBC 22.1 H RBC 3.34 L Hgb 11.0 L Hct 32.4 L MCV 97.0 H MCH 32.9 H MCHC 34.0 RDW 13.0 RDW Differential 44.0 H Plt Count 307 MPV 10.0 Immature Gran % (Auto) 0.200 Neut % (Auto) 93.8 H Lymph % (Auto) 1.2 L [place] % (Auto) 4.7 Eos % (Auto) 0.1 Baso % (Auto) 0.0 Absolute Neuts (auto) 20.8 H Absolute Lymphs (auto) 0.26 L Total Counted Not Reportable Differential Comment SCANNED PT 17.4 H INR 1.4 APTT 39.1 H Sodium 133 L Potassium 3.8 Chloride 95 L Carbon Dioxide 29.0 Anion Gap 9 BUN 24 H Creatinine 1.45 H Estim Creat Clear Calc 26.19 Est GFR (MDRD) Af Amer 64 Est GFR (MDRD) Non-Af 53 L BUN/Creatinine Ratio 16.6 Glucose 105 Lactic Acid Calcium 9.1 Total Bilirubin 0.80 AST 31 ALT 12 L Alkaline Phosphatase 77 Total Protein 7.0 Albumin 3.2 Globulin 3.8 Albumin/Globulin Ratio 0.8 L Urine Color Urine Clarity Urine pH Ur Specific [place] Urine Protein Urine Glucose (UA) Urine Ketones Urine Occult Blood Urine Nitrite Urine Bilirubin Urine Urobilinogen Ur Leukocyte Esterase Urine RBC Urine WBC Ur Squamous Epith Cells Urine Bacteria Urine Mucus 06/12/17 06/13/17 15:35 00:25 WBC RBC Hgb Hct MCV MCH MCHC RDW RDW Differential Plt Count MPV Immature Gran % (Auto) Neut % (Auto) Lymph % (Auto) [place] % (Auto) Eos % (Auto) Baso % (Auto) Absolute Neuts (auto) Absolute Lymphs (auto) Total Counted Differential Comment PT INR APTT Sodium Potassium Chloride Carbon Dioxide Anion Gap BUN Creatinine Estim Creat Clear Calc Est GFR (MDRD) Af Amer Est GFR (MDRD) Non-Af BUN/Creatinine Ratio Glucose Lactic Acid 1.4 Calcium Total Bilirubin AST ALT Alkaline Phosphatase Total Protein Albumin Globulin Albumin/Globulin Ratio Urine Color Yellow Urine Clarity Clear Urine pH 6.5 Ur Specific [place] 1.015 Urine Protein Negative Urine Glucose (UA) Normal Urine Ketones 50 H Urine Occult Blood Negative Urine Nitrite Negative Urine Bilirubin Negative Urine Urobilinogen Normal Ur Leukocyte Esterase Negative Urine RBC 0 SEEN Urine WBC 0 SEEN Ur Squamous Epith Cells 0 SEEN Urine Bacteria 0 SEEN Urine Mucus 0 SEEN ASSESSMENT/PLAN: 1) Aspiration. Assessment: -chronic issue complicated by esophagectomy with gastric pull-through and vocal cord paralysis. -Given previous esophagectomy, PEG tube not feasible. Insertion of jejunostomy tube would obviate the need for him to get oral nutrition, but would not necessarily prevent aspiration. Plan: -Patient education and need for him to sleep in an upright position. 2) left lower back pain. Assessment: -Pain is out of proportion to simple musculoskeletal injury. -Agree with MRI. He will need adequate pain control in order to undergo MRI. Plan: -rotate narcotic pain medication and IV Dilaudid. -Further recommendations regarding pain management once the MRI is completed. 3) Metastatic adenocarcinoma of the GE junction. Assessment: -Disease has been refractory to multiple lines of chemotherapy in the metastatic setting. -No actionable molecular targets revealed with next generation sequence multi gene assay. Plan: -After #2 above has been addressed, patient should consider hospice care. for now he wishes to remain full code. I will readdress CODE STATUS and the appropriateness of hospice in the outpatient setting.
--- NOTE | 2017-06-13 08:35 | CON.PCM_ITS ---
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 Was empirically started in PPI. Symptoms however progressed and he was referred for EGD. Also has lost about 15 lbs since earlier this year. ?? EGD 07/03/2015: large, fungating mass with no bleeding and with no stigmata of recent bleeding was found in the lower third of the esophagus. The mass was partially obstructing. Biopsies were taken with a cold forceps for histology. Estimated blood loss: none. This was at 42 cm. The scope could not pass through and no lumin was seen. No dilation done. ?? Pathology: Distal esophagus, biopsy - At least intramucosal adenocarcinoma, focally present beneath squamous epithelium. ?? CT C/A/P 07/05/2015: CT CHEST FINDINGS: Lung findings: No evidence of noncalcified nodules, infiltrates or pleural effusions. Heart: Normal in size. Some thickening of the lower esophageal wall noted. Mediastinal and hilar findings: No enlarged lymph nodes in the mediastinum or hilar regions. Lymph nodes: No enlarged axillary or supraclavicular nodes are seen. Bony structures: No significant abnormalities identified. CT ABDOMEN FINDINGS: Liver: Liver texture unremarkable. No focal masses. Biliary tree: Common duct normal in size. No intrahepatic bile duct dilatation is seen. Pancreas: Unremarkable Spleen: Spleen normal size. No focal masses. Adrenals: Normal size. Kidneys: Are seen to function bilaterally. No focal abnormalities. Lymph nodes: No enlarged lymph nodes are seen. Retroperitoneum: The aorta is normal in size. Otherwise unremarkable. CT PELVIS FINDINGS: Lymph Nodes: No enlarged lymph nodes. Urinary bladder: Urinary bladder wall mildly thickened. ?? Underwent EGD/EUS. On EGD scope was passed into the stomach. EUS, the scope was not able to be passed into the stomach. Ultrasound revealed one perigastric lymph node. Otherwise the tumor was noted to extend into the cardia and invade to the adventitial layer. ?? PET scan revealed one isolated lymph node metastasis to the left of midline perigastric area most likely corresponding with the node seen on ultrasound. ?? Previous therapy: 1) FOLFOX (CASE 6213 clinical trial). 2) Surgery on 11/09/2015. 3) Adjuvant chemo/radiation with carbo/paciltaxel. He underwent a CT-guided biopsy of the liver lesion at [facility]. 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 ? Was diagnosed with extensive DVT of the left arm. He was started on Lovenox. Previous therapy for metastatic disease: 1) ECX- partial response with stable lesion in the liver. 2) Herceptin/cisplatin &?capcitabine. 3) Palliative radiation to upper mediastinum completed 04/18/2017. ?? [employer] testing in May showed no actionable targets. patient has been pursuing holistic therapies. He's been aspirating. He feels he doesn't aspirate much at all if he's eating or drinking but when he is sometimes lying in a recumbent position he definitely wakes up with reflux and coughing/aspiration. Last night he was brought to the emergency room for this. He had been febrile at home up to 102. Chest x-ray demonstrated a suggestion of bilateral lower lobe infiltrates worse on the right. He was started on antibiotics. This morning he is feeling better. He is not requiring any oxygen. He has minimal cough. He knows that if he sleeps in a more upright position he definitely doesn't aspirate is much even when sleeping. the other main issue is pain in the left pelvis. The pain is sharp and is below the posterior iliac crest on the left. Recent plain films demonstrated no abnormality to suggest metastatic disease. He had degenerative changes of lumbar spine. The pain is very sharp and hurts to lie on it and it hurts especially when walking/moving his leg. He's been taking liquid oxycodone with minimal relief. He states the pain does not radiate down his leg. He has had this pain off and on since an injury years ago but typically when he would get chiropractic manipulation, the pain would resolve. Lately the pain has been persistent for about a month and has been getting worse. Allergies aspirin Allergy (Verified 06/12/17 14:15) Unknown Penicillins Allergy (Verified 06/12/17 16:56) Rash STEROIDS Adverse Reaction (Uncoded 06/12/17 16:56) Pt is not to have d/t alternative cancer therapy Current Medications Acetaminophen (Tylenol) 650 mg PO Q4H PRN PRN PRN Reason: Mild-Moderate Pain/Headache Acetaminophen (Tylenol) 650 mg PO Q6H PRN PRN PRN Reason: Mild Pain (scale 0-3)/T>100.7 Al Hydroxide/Mg Hydroxide (Mylanta Ii) 30 ml PO Q6H PRN PRN PRN Reason: Gastric Burning Last Admin: 06/13/17 04:12 Dose: 30 ml Albuterol Sulfate (Ventolin Aerosols) 2.5 mg INHALATION Q2H PRN PRN PRN Reason: SHORTNESS OF BREATH Albuterol/Ipratropium (Duoneb) 3 ml INHALATION Q4HWA.RT CONG Last Admin: 06/13/17 07:28 Dose: 3 ml Bisacodyl (Dulcolax) 10 mg RECTAL DAILY PRN PRN PRN Reason: Constipation Docusate Sodium (Colace) 200 mg PO BID PRN PRN PRN Reason: Constipation Famotidine (Pepcid) 20 mg PO BID [facility] Last Admin: 06/12/17 22:29 Dose: 20 mg Dextrose/Sodium Chloride () 1,000 mls @ 150 mls/hr IV .Q6H40M [facility] Last Admin: 06/13/17 04:04 Dose: 150 mls/hr Levofloxacin 750 mg/ N/A 150 mls @ 100 mls/hr IV Q48 [facility] Metronidazole 500 mg/ N/A 100 mls @ 100 mls/hr IV Q8 [facility] Last Admin: 06/13/17 06:31 Dose: 100 mls/hr Loratadine (Claritin) 10 mg PO DAILY PRN PRN Reason: ALLERGIES Morphine Sulfate () 1 - 2 mg IV Q4H PRN PRN PRN Reason: SEVERE PAIN (6-10/10) Last Admin: 06/13/17 04:12 Dose: 2 mg Nutritional Formula (Lactose Free) (Ensure Enlive) 120 ml PO 4X/DAY [facility] Last Admin: 06/12/17 22:29 Dose: Not Given Ondansetron HCl (Zofran) 4 mg IV Q6H PRN PRN PRN Reason: NAUSEA Oxycodone HCl (Oxyfast) 10 mg SL Q4H PRN PRN Reason: SEVERE PAIN (6-10/10) Last Admin: 06/13/17 07:40 Dose: 10 mg Oxycodone HCl (Oxycontin) 15 mg PO BID [facility] Last Admin: 06/12/17 19:44 Dose: 15 mg Polyethylene Glycol (Miralax) 17 gm PO DAILY [facility] Rivaroxaban (Xarelto) 20 mg PO DAILY@1700 [facility] Sodium Chloride () 5 - 30 ml IV UD PRN PRN Reason: SALINE FLUSH Last Admin: 06/13/17 04:13 Dose: 10 ml Zolpidem Tartrate (Ambien (Generic)) 5 mg PO QHS PRN PRN PRN Reason: SLEEP ROS: Constitutional: Neuro: Denies [place], vertigo, dizziness. HEENT: No recent change in voice, vision or hearing. Resp: Denies shortness of breath at rest. CVS: Denies exertional chest pain, PND, orthopnea and LE edema. GI: As above. : Denies dysuria or gross hematuria. No symptoms of bladder outlet obstruction. Endo: Denies hot flashes. Denies polyuria and polydipsia. Denies heat and cold intolerance. Musculoskeletal: As above. Derm: Denies rash. Denies jaundice and diffuse pruritis. Heme: Denies unusual bleeding and unexplained bruising. Psych: Normal mood. PHYSICAL EXAM: Vitals: Vital Signs Temp 98.0 F 06/13/17 04:36 Pulse 86 06/13/17 07:27 Resp 16 06/13/17 04:36 BP 108/60 06/13/17 04:36 Pulse Ox 98 06/13/17 04:36 Intake & Output 06/11/17 06/12/17 06/13/17 23:59 23:59 23:59 Intake Total 2867 / 2867 Balance 2867 / 2867 Weight: 72.3 kg Intake: Oral 60 / 60 IV fluid/meds 2807 / 2807 Other: Number of Voids 2 No acute distress. EYES: Sclerae are anicteric bilaterally. Husky/whisper voice. NECK: Supple. LYMPHATIC: There is no palpable cervical, supraclavicular adenopathy. RESPIRATORY: Mildly decreased air entry in all elliott. 3 wheezes in the right lower and mid lung zone. CARDIOVASCULAR: Rhythm is regular. Normal intensity S1/S2. ABDOMEN: The abdomen is nondistended.mild tenderness area of scar from previous jejunostomy tube. Extremities: No swelling or edema. SKIN: No jaundice or rash. NEUROLOGIC: white sugar supervisor II-XII are grossly intact. No focal motor weakness. DTRs normal. Laboratory Results - last 24 hr 06/12/17 06/12/17 06/12/17 15:35 15:35 15:35 WBC 22.1 H RBC 3.34 L Hgb 11.0 L Hct 32.4 L MCV 97.0 H MCH 32.9 H MCHC 34.0 RDW 13.0 RDW Differential 44.0 H Plt Count 307 MPV 10.0 Immature Gran % (Auto) 0.200 Neut % (Auto) 93.8 H Lymph % (Auto) 1.2 L [place] % (Auto) 4.7 Eos % (Auto) 0.1 Baso % (Auto) 0.0 Absolute Neuts (auto) 20.8 H Absolute Lymphs (auto) 0.26 L Total Counted Not Reportable Differential Comment SCANNED PT 17.4 H INR 1.4 APTT 39.1 H Sodium 133 L Potassium 3.8 Chloride 95 L Carbon Dioxide 29.0 Anion Gap 9 BUN 24 H Creatinine 1.45 H Estim Creat Clear Calc 26.19 Est GFR (MDRD) Af Amer 64 Est GFR (MDRD) Non-Af 53 L BUN/Creatinine Ratio 16.6 Glucose 105 Lactic Acid Calcium 9.1 Total Bilirubin 0.80 AST 31 ALT 12 L Alkaline Phosphatase 77 Total Protein 7.0 Albumin 3.2 Globulin 3.8 Albumin/Globulin Ratio 0.8 L Urine Color Urine Clarity Urine pH Ur Specific [place] Urine Protein Urine Glucose (UA) Urine Ketones Urine Occult Blood Urine Nitrite Urine Bilirubin Urine Urobilinogen Ur Leukocyte Esterase Urine RBC Urine WBC Ur Squamous Epith Cells Urine Bacteria Urine Mucus 06/12/17 06/13/17 15:35 00:25 WBC RBC Hgb Hct MCV MCH MCHC RDW RDW Differential Plt Count MPV Immature Gran % (Auto) Neut % (Auto) Lymph % (Auto) [place] % (Auto) Eos % (Auto) Baso % (Auto) Absolute Neuts (auto) Absolute Lymphs (auto) Total Counted Differential Comment PT INR APTT Sodium Potassium Chloride Carbon Dioxide Anion Gap BUN Creatinine Estim Creat Clear Calc Est GFR (MDRD) Af Amer Est GFR (MDRD) Non-Af BUN/Creatinine Ratio Glucose Lactic Acid 1.4 Calcium Total Bilirubin AST ALT Alkaline Phosphatase Total Protein Albumin Globulin Albumin/Globulin Ratio Urine Color Yellow Urine Clarity Clear Urine pH 6.5 Ur Specific [place] 1.015 Urine Protein Negative Urine Glucose (UA) Normal Urine Ketones 50 H Urine Occult Blood Negative Urine Nitrite Negative Urine Bilirubin Negative Urine Urobilinogen Normal Ur Leukocyte Esterase Negative Urine RBC 0 SEEN Urine WBC 0 SEEN Ur Squamous Epith Cells 0 SEEN Urine Bacteria 0 SEEN Urine Mucus 0 SEEN ASSESSMENT/PLAN: 1) Aspiration. Assessment: -chronic issue complicated by esophagectomy with gastric pull-through and vocal cord paralysis. -Given previous esophagectomy, PEG tube not feasible. Insertion of jejunostomy tube would obviate the need for him to get oral nutrition, but would not necessarily prevent aspiration. Plan: -Patient education and need for him to sleep in an upright position. 2) left lower back pain. Assessment: -Pain is out of proportion to simple musculoskeletal injury. -Agree with MRI. He will need adequate pain control in order to undergo MRI. Plan: -rotate narcotic pain medication and IV Dilaudid. -Further recommendations regarding pain management once the MRI is completed. 3) Metastatic adenocarcinoma of the GE junction. Assessment: -Disease has been refractory to multiple lines of chemotherapy in the metastatic setting. -No actionable molecular targets revealed with next generation sequence multi gene assay. Plan: -After #2 above has been addressed, patient should consider hospice care. for now he wishes to remain full code. I will readdress CODE STATUS and the appropriateness of hospice in the outpatient setting.
[2017-06-13] MEDS: HYDROmorphone 1 MG/ML Syringe IV ×5 (09:36→22:02)
[2017-06-13] MEDS: Famotidine 20 MG Tablet PO ×2 (09:42→21:07)
--- NOTE | 2017-06-13 10:18 | CASEMGMT ---
Face to Face with patient for initial transition planning/care coordination assessment. RN CM introduced self and role at [facility], pt voices understanding and consents to assessment at this time. Pt is sitting up in bed in some pain at this time but RN is working on pain med at this time. Pt is A/O x4 at this time and answers all questions appropriately at this time. Pt's [id number] enters room while this RN CM completing assessment and answers some questions for pt at this time. Care providers, pharmacy, and demographics verified. See attached link. Pt voices no further concerns/needs at this time. Advised pt to ask for CM if any further questions/concerns/needs arise, voices understanding. Referral to [facility] at this time for palliative referral per Zuleika DAN, voices understanding. CM to follow for any further discharge planning/needs. PLAN: [facility]
[2017-06-13 10:20] LABS: Absolute Lymphocyte Count 0.31 X10^3/ul (0.83-4.51); Absolute Neutrophil Count 15.7 X10^3/uL (2.0-7.7); Basophil# 0.02 X10^3/uL; Basophil% 0.1 % (0-1); Eosinophil# 0.11 X10^3/uL; Eosinophils% 0.6 % (0-5); Hematocrit 27.4 % (40-54); Hemoglobin 9.1 g/dl (13.0-16.5); Lymphocyte # 0.31 X10^3/ul (4.0); Lymphocyte % 1.8 % (19-41); Mean Corp Hgb Conc 33.2 g/gl (32-36); Mean Corpuscular Hgb 32.3 pg (27.0-32.0); Mean Corpuscular Volume 97.2 fL (80-94); Mean Platelet Vol. 9.2 fl (6.2-12.0); Monocyte# 1.04 X10^3/uL; Neutrophil # 15.72 X10^3/uL (2.7-7.7); Neutrophil % 91.3 % (47-70); Platelet Count 278 K/mm3 (150-450); Red Blood Count 2.82 M/mm3 (4.6-6.2); White Blood Count 17.2 K/mm3 (4.4-11.0)
[2017-06-13 10:21] LABS: Differential Indicated SCAN CRITERIA MET; POSITIVE COUNT NO; POSITIVE DIFFERENTIAL YES; POSITIVE MORPHOLOGY NO
[2017-06-13 10:26] LABS: Anion Gap 9 (5-15); BUN 12 mg/dL (7-18); BUN/Creat Ratio 10.8 RATIO (10-20); Calcium,Total 8.2 mg/dL (8.5-10.1); Chloride 98 mmol/L (98-107); Creatinine, Serum 1.11 mg/dL (0.70-1.30); EST Glomerular Filtration Rate 72 mL/min (>60); Est Glom Filt Rate - Afr Amer 87 mL/min (>60); Estimated Creatinine Clearance 74.18 ml/min; Glucose 143 mg/dL (74-106); Potassium 3.3 mmol/L (3.5-5.1); Sodium Level 132 mmol/L (136-145)
[2017-06-13 10:33] LABS: Red Cell Morphology NORM C+C NORMAL (NORM C&C)
--- NOTE | 2017-06-13 12:02 | CASEMGMT ---
PA spoke with patient and he is in agreement with talking to Palliative Care. SW called Susana at [facility] and left her a voice mail and faxed over referral information. Tami OSULLIVAN MSW
--- NOTE | 2017-06-13 12:45 | SP.MBSS_ITS ---
PRIMARY / SECONDARY DIAGNOSIS: dysphagia (R13.12, R13.14) REFERRING PHYSICIAN: Dr. 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 Patient reports onset of dysphagia occurring following initial radiation therapy sessions with reported mild odynophagia (since resolved) and coughing during thin liquid intake; reports persistent xerostomia, dysgeusia / ageusia, reports intermittent persistent coughing particularly with thin liquids, attributing to prior surgical intervention within the distal portions of the esophagus and suboptimal positioning (recumbent positioning). Patient previously placed on proton pump inhibitors for reflux, though symptoms progressed and was subsequently referred for EGD. Pt. reports losing approximately 25lbs since January 2017, attributing to change in diet and loss of appetite (voluntary gluten / sugar / dairy free); Patient has been pursuing holistic therapies. 06/12/2017 CXR revealed bilateral pneumonia. 07/03/2015 EGD revealed a large, fungating mass with no bleeding and with no stigmata of recent bleeding was found in the lower third of the esophagus; mass partially obstructing; no dilation completed. 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 STUDY FINDINGS: Patient participated in a Modified Barium Swallow (MBS) study on 06/13/2017. Dr. Sanchez was the radiologist present for this evaluation. This study was recorded in the lateral view and images were sent to PACs for storage. The following consistencies were presented to this patient for analysis of oropharyngeal swallow function: thin liquids, nectar thickened liquids, pudding , and a regular textured, [place] Do[place] cookie. Results of the MBS are as follows: PENETRATION / ASPIRATION SCALE ([place]O): 1 = does not enter airway 2 = enters airway/above vocal folds/ejected 3 = enters airway/above vocal folds/not ejected 4 = enters airway/contacts vocal folds/ejected 5 = enters airway/contacts vocal folds/not ejected 6 = enters airway/below vocal folds/ejected 7 = enters airway/below vocal folds/not ejected despite effort 8 = enters airway/below vocal folds/no effort VIDEOFLOROSCOPIC SCALE SCORE ([place]O): Grade I = aspiration of material that has penetrated into the laryngeal vestibule, intact cough reflex Grade II = aspiration < 10 % of the bolus, intact cough reflex Grade III = aspiration of < 10 % of the bolus, reduced cough reflex or aspiration of > 10 % of the bolus, intact cough reflex Grade IV = aspiration of > 10 % of the bolus, reduced cough reflex PENETRATION / ASPIRATION SCALE (SCORE) WITH VIDEOFLOROSCOPIC SCALE SCORE: Thin liquid - 5 mL tsp.: 8 - Grade IV [place] thickened liquids via cup (single sip): 1 [place] thickened liquids via cup (single sip): 1 [place] thickened liquids via cup (single sip): 1 [place] thickened liquids via cup (single sip): 1 [place] thickened liquids via cup (single sip): 1 Pudding via spoon: 1 Regular textured cookie: 1 [place] thickened liquids via cup (single sip): 1 IMPRESSION: DIAGNOSIS: moderate oropharyngeal dysphagia (R13.13) ORAL PHASE CHARACTERIZED BY: LABIAL SEAL: no labial escape TONGUE CONTROL DURING BOLUS MANIPULATION: posterior escape of less than half of bolus BOLUS PREPARATION / MASTICATION: timely and efficient chewing and mashing BOLUS TRANSPORT / LINGUAL MOTION: brisk tongue motion ORAL RESIDUE: trace residue lining oral structures PHARYNGEAL PHASE CHARACTERIZED BY: INITIATION OF PHARYNGEAL SWALLOW: bolus head in valleculae at first hyoid excursion SOFT PALATE ELEVATION: no bolus between soft palate and pharyngeal wall LARYNGEAL ELEVATION: partial superior movement of thyroid cartilage/partial approximation of arytenoids cartilage to epiglottic petiole ANTERIOR HYOID EXCURSION: partial anterior movement EPIGLOTTIC MOVEMENT: partial epiglottic inversion LARYNGEAL VESTIBULE CLOSURE AT HEIGHT OF SWALLOW: incomplete laryngeal vestibule closure with narrow column of air/contrast in laryngeal vestibule PHARYNGEAL STRIPPING WAVE: pharyngeal stripping wave present / complete PHARYNGOESOPHAGEAL SEGMENT OPENING: partial distension and partial duration; partial obstruction of flow TONGUE BASE RETRACTION: trace column of contrast between tongue base and posterior pharyngeal wall PHARYNGEAL RESIDUE: collection of residue within or on pharyngeal structures ESOPHAGEAL PHASE CHARACTERIZED BY: ESOPHAGEAL BOLUS CLEARANCE IN THE UPRIGHT POSITION: complete clearance; esophageal coating EFFECTS OF TREATMENT STRATEGIES ATTEMPTED: Double swallow = moderately effective Liquid chaser = moderately effective Reduced bolus size = moderately effective DIET TEXTURE RECOMMENDATIONS: Will recommend a regular-soft textured, nectar thickened liquid diet. COMPENSATORY STRATEGIES RECOMMENDED: Distant supervision, reduced bolus volume, reduced rate of intake, liquid chaser at appropriate intervals, seated upright at 90 degrees during PO intake, remain upright for 30-60 minutes post meal (GERD precaution), medications with liquid chaser, INTERPRETATION OF RESULTS: Patient presents with moderate oropharyngeal dysphagia (R13.12) attributed to oropharyngeal and / or esophageal dysphagia secondary to esophageal cancer with mass-effect from esophageal cancer on recurrent laryngeal nerve status post radiation therapy (x35) and gastric pull-up surgery, with resulting vocal fold palsy. Oral phase primarily marked by suboptimal lingual control with noted posterior bolus loss; oral phase otherwise unremarkable. Pharyngeal phase primarily marked by reduced closure of the airway during deglutition attributed to reduced hyolaryngeal excursion resulting in insufficient epiglottic inversion and inadequate laryngeal vestibule closure / pressure resulting in prandial penetration and subsequent SILENT aspiration of thin liquids, with insufficient laryngeal vestibule pressure generated to expel penetrated material. Noted insufficient volitional cough to expel penetrated material / laryngotracheal aspiration. Patient noted to SILENTLY aspirate larger quantities of thin liquids, with clinical assessment at bedside relying on identification of classic overt signs and symptoms of aspiration unreliable. Patient is considered at higher risk of malnutrition and dehydration associated with diet texture recommendations. RECOMMENDATIONS: Would strongly discourage advancement past nectar thickened liquids without completion of a repeat modified barium swallow study due to the extent of aspirate identified that was SILENT in nature. Recommend a repeat modified barium swallow study within 4-6 weeks of intervention (if clinically appropriate ) to further assess the presence and extent of silent and overt aspiration prior to advancement to thin liquids. Would consider implementation of the [place] Protocol (FFWP) post-acute care admission following Patient and family education IF the Patient is deemed clinically appropriate following demonstration of comprehension. Patient requires intensive skilled speech- language intervention targeting continued diet texture management; training and implementation of recommended compensatory strategies; training and implementation of recommended oropharyngeal strengthening exercises to facilitate improved laryngeal vestibule closure / pressure; training, implementation, and Patient education regarding implementation of the FFWP if deemed clinically appropriate; and Patient / caregiver training targeting meal preparation / thickened liquid preparation ADDITIONAL COMMENTS/RECOMMENDATIONS: Results and recommendations were discussed with the Patient immediately following MBS completion, with the Patient verbalizing understanding and agreement with all recommendations and education provided. IMAGE COUNT: [id number]
--- NOTE | 2017-06-13 13:00 | RAD_ITS ---
STUDY: SWALLOWING STUDY REASON FOR EXAM: Male, 57 years old. Dysphagia. TECHNIQUE: The examination was performed with Speech Pathology in attendance. Under fluoroscopic observation, the patient ingested thin barium, thick barium, barium pudding, and barium coated cracker. FLUOROSCOPY TIME: 1:59 minutes/seconds. 1832 spot images were obtained. RADIOLOGIST INVOLVEMENT: Radiologist was present and providing direct supervision. COMPARISON: None. FINDINGS: The following was observed during swallowing of the various mixtures of barium: Moderate degree of oropharyngeal dysphasia. Thin Barium: Silent aspiration with ingestion of thin liquids. Thick Barium: There was no evidence of aspiration or laryngeal penetration. Barium Pudding: There was no evidence of aspiration or laryngeal penetration. Barium Coated Cracker: There was no evidence of aspiration or laryngeal penetration. RAD/Swallowing Function w/Video IMPRESSION: Silent aspiration with ingestion of thin liquids. The swallow study findings were discussed with the patient by the speech pathologist at the conclusion of the examination. Please see speech pathology report for more information and recommendations. Electronically Signed: Beny Rojas MD at 8:02 EDT Tel [phone], Service support ,
--- NOTE | 2017-06-13 13:50 | US_ITS ---
US Kidney(s) complete (eg, kidneys T bladder) INDICATION: HYDRONEPHROSIS COMPARISON: None TECHNIQUE: Ultrasonographic grayscale, Doppler investigation of the retroperitoneum including kidneys and urinary bladder FINDINGS: The right kidney measures 13 x 6 x 4 cm with a cortical thickness of 1.8 cm. There is no evidence of hydronephrosis, cyst, or shadowing calculus. The left kidney measures 16.2 x 5.7 x 7.6 cm with a cortical thickness of 2.5 cm. There is moderate hydronephrosis. No evidence of cyst or shadowing calculus. The urinary bladder appears unremarkable, contains 80 mL time of the study. Incidentally noted was a mass in the liver compatible with known malignancy. US/Kidney and Bladder IMPRESSION: Moderate left-sided hydronephrosis. at 2046 Reported and signed by: Ronel Lane MD Electronically Signed: Ronel Lane MD at 20:45 EDT Tel , Service support ,
--- NOTE | 2017-06-13 13:56 | PN_ITS ---
<Bertin Castillo - Last Filed: 06/13/17 13:32> Patient Problems: Active and Suspected Problems Aspiration pneumonia (Acute) Hypotension (Acute) Subjective: Patient denies ari aspiration, dysphagia, odynophagia, choking on foods, or otherwise having problems swallowing liquids or solids. He does report that sometimes after he eats especially when he is laying down he can feel liquid bubbling up his esophagus and refluxing. Per Dr. Gomez's note he does have a history of dysphagia. 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 He was admitted last night for aspiration pneumonia. He does not feel short of breath today, however he is coughing up a large quantity of thick mucus. He has no fevers or chills overnight. He has no abdominal pain, nausea, vomiting. He was supposed to see Dr. Vance as an outpatient for severe chronic back pain from a work-related injury. He is waiting to have an MRI of his spine today. As far as his cancer , he reports he has completed multiple rounds of chemotherapy with no improvement. He states he has been told by Dr. Gomez that his care is palliative at this point. the patient decided to pursue alternative therapy and reports that he has seen a naturo-path, who has placed him on a strict 0 carb, all protein diet, stating that carbohydrates cause cancer, the patient refuses to consider any diet that contains carbohydrates at this point despite conversation with the dietitian today about his 15 pound recent weight loss, and inadequate dietary intake. The patient stated to me that he believes the combination of supplements that he was prescribed by the natural list, who he refuses to further describe what type of DrTabby or who he is to me, that the supplements and diet may actually be curative for him and reverse the cancer process. He also has reported that he has had extensive testing of his cancer that revealed that there are no agents that will directly target it, and Dr. Gomez's notes support this as well. As the patient has required multiple doses of Dilaudid to make his pain even tolerable I advised the patient that I believe that palliative care would be better suited to managing his pain at this point and he agreed to be seen by them today. The patient also has been advised in the past that he needs to continue taking a PPI to help with reflux symptoms, unfortunately the patient believes that this is interfering with the effectiveness of his pain medications and he has stopped taking this at home. I strongly advised him to stay strictly compliant especially with the concerns for aspiration secondary to reflux. - Physical Exam General: Alert, Oriented x3, Cooperative, - - Cachectic HEENT: Atraumatic, PERRLA, EOMI, Normocephalic, - - Voices very diminished, whisper only. Neck: Supple, No JVD, Negative Carotid Bruits Lungs: Normal air movement, Rales - Faint rales bilateral bases Cardiovascular: Regular rate, No murmurs Abdomen: Bowel Sounds Present, Soft, Non Tender Extremities: No edema, Capillary Refill Less than 3 Seconds Skin: No rashes, No breakdown Musculoskeletal: No Tenderness to Palpation of Joints or Extremities Neurological: Cranial nerves II-XII grossly intact Psych/Mental Status: Normal Affect, Appropriate, Alert and oriented to time, place, person, mood and affect Vital Signs Temp Pulse Resp BP Pulse Ox 97.2 F L 91 18 109/60 94 06/13/17 08:54 06/13/17 11:13 06/13/17 08:54 06/13/17 08:54 06/13/17 08:54 Oxygen Flow Rate (L/min) 2 Oxygen Delivery Method Room Air Weight: 72.3 kg Body Mass Index (BMI) 21.0 Intake and Output for Last 24 Hours 06/11/17 06/12/17 06/13/17 23:59 23:59 23:59 Intake Total 3677 / 3677 Balance 3677 / 3677 Microbiology Past 72 Hours 06/12/17 19:16 Respiratory Panel (PCR) - Final Mucosa - Nasopharyngeal 06/13/17 00:25 Legionella Antigen - Final Urine, Clean Catch 06/13/17 00:25 Streptococcus pneumoniae Antigen (M - Final Urine, Clean Catch Laboratory Tests Past 24 Hrs 06/13/17 06/13/17 06/13/17 00:25 09:50 09:50 WBC 17.2 H RBC 2.82 L Hgb 9.1 L Hct 27.4 L MCV 97.2 H MCH 32.3 H MCHC 33.2 RDW 13.0 RDW Differential 44.0 H Plt Count 278 MPV 9.2 Immature Gran % (Auto) 0.200 Neut % (Auto) 91.3 H Lymph % (Auto) 1.8 L Burt % (Auto) 6.0 Eos % (Auto) 0.6 Baso % (Auto) 0.1 Absolute Neuts (auto) 15.7 H Absolute Lymphs (auto) 0.31 L Total Counted Not Reportable RBC Morphology NORM C+C Sodium 132 L Potassium 3.3 L Chloride 98 Carbon Dioxide 25.0 Anion Gap 9 BUN 12 Creatinine 1.11 Estim Creat Clear Calc 74.18 Est GFR (MDRD) Af Amer 87 Est GFR (MDRD) Non-Af 72 BUN/Creatinine Ratio 10.8 Glucose 143 H Calcium 8.2 L Urine Color Yellow Urine Clarity Clear Urine pH 6.5 Ur Specific [place] 1.015 Urine Protein Negative Urine Glucose (UA) Normal Urine Ketones 50 H Urine Occult Blood Negative Urine Nitrite Negative Urine Bilirubin Negative Urine Urobilinogen Normal Ur Leukocyte Esterase Negative Urine RBC 0 SEEN Urine WBC 0 SEEN Ur Squamous Epith Cells 0 SEEN Urine Bacteria 0 SEEN Urine Mucus 0 SEEN Medical Necessity - Tobacco Use Smoking Status: Former smoker - About 2 years ago. History of multiple relapses. Started in his 20s, about 30 pack years of smoking Assessment/Plan Active and Suspected Problems Aspiration pneumonia (Acute) Hypotension (Acute) 1. Acute sepsis secondary to bilateral aspiration pneumonia secondary to dysphagia secondary to advanced esophageal cancer-continue Levaquin and Flagyl. He had a speech eval today. He is reporting to me that he is not frankly aspirating or having obvious dysphagia, he feels that this is more of a reflux process. He will undergo swallow eval's later today to further assess. The patient has unfortunately stopped taking his acid reflux medication omeprazole as he believes it is interfering with the absorption of his pain medications. I strongly advised him to continue taking the PPI daily especially with concern for reflux aspiration. -WBCs improved -Febrile -No shortness of breath today -Chest x-ray initially consistent with bilateral aspiration pneumonia -Continue chest physiotherapy, added incentive spirometry and Mucinex. -Sputum culture pending -Urine antigen testing negative -Respiratory panel negative -Hypotension resolved 2. Stage IV esophageal cancer with metastases to the liver and 2 lymph node- not amenable to further chemotherapy, resistant to multiple lines of chemo prior to this. Per Dr. Gomez's note he is hospice appropriate. Patient believes that the natural remedies prescribed by an outside source including multiple dietary supplements and a 0 carb diet are a possible curative process at this point. As this approach is grossly unrealistic and potentially will cause further harm to the patient I will plan to approach this cautiously tomorrow - particularly I want to encourage him to advance his diet further - as family initially offered a lot of resistance to discussing this care path today during the pt interview. 3. Acute on chronic back pain-MRI today and streets multilevel degenerative changes, facet arthropathy, neuroforaminal stenosis, bulging disks, see MRI report. Palliative care consulted for pain management. 4. Severe protein calorie malnutrition-worsened by his refusal to consider any other dietary options at this point. Refuse dietitians recommendations. He is eating a 0 carbohydrate diet per recommendation from some sort of homeopathic doctor who he refuses to disclose details about. Him and his family refused to consider any carbs as they have been told and strongly believe that carbohydrates cause cancer and that avoiding them will be able to reverse his stage IV cancer. He has lost 15 pounds recently. This complicates things if he will end up requiring a feeding tube as there will be a carb component to every viable option. 5. Hypokalemia-repleted 6. Mildly macrocytic anemia-we will trend 7. JAYCEE secondary to sepsis, improved, there is hydronephrosis reported on the MRI, will obtain renal ultrasound to better visualize. DVT prophylaxis: Xarelto Discharge planning: Follow cultures, follow PT OT eval's. Pt is hospice appropriate however currently in denial about the terminality of his condition. This patient was seen by Bertin Castillo PA-C under the supervision of Doctor Bowman. <Gia Bowman - Last Filed: 06/13/17 14:39> - Physical Exam Vital Signs Temp Pulse Resp BP Pulse Ox 99.6 F H 95 18 96/72 95 06/13/17 13:55 06/13/17 13:55 06/13/17 13:55 06/13/17 13:55 06/13/17 13:55 Oxygen Flow Rate (L/min) 2 Oxygen Delivery Method Nasal Cannula Weight: 72.3 kg Body Mass Index (BMI) 21.0 Intake and Output for Last 24 Hours 06/11/17 06/12/17 06/13/17 23:59 23:59 23:59 Intake Total 3677 / 3677 Balance 3677 / 3677 Microbiology Past 72 Hours 06/12/17 19:16 Respiratory Panel (PCR) - Final Mucosa - Nasopharyngeal 06/13/17 00:25 Legionella Antigen - Final Urine, Clean Catch 06/13/17 00:25 Streptococcus pneumoniae Antigen (M - Final Urine, Clean Catch Laboratory Tests Past 24 Hrs 06/13/17 06/13/17 06/13/17 00:25 09:50 09:50 WBC 17.2 H RBC 2.82 L Hgb 9.1 L Hct 27.4 L MCV 97.2 H MCH 32.3 H MCHC 33.2 RDW 13.0 RDW Differential 44.0 H Plt Count 278 MPV 9.2 Immature Gran % (Auto) 0.200 Neut % (Auto) 91.3 H Lymph % (Auto) 1.8 L Burt % (Auto) 6.0 Eos % (Auto) 0.6 Baso % (Auto) 0.1 Absolute Neuts (auto) 15.7 H Absolute Lymphs (auto) 0.31 L Total Counted Not Reportable RBC Morphology NORM C+C Sodium 132 L Potassium 3.3 L Chloride 98 Carbon Dioxide 25.0 Anion Gap 9 BUN 12 Creatinine 1.11 Estim Creat Clear Calc 74.18 Est GFR (MDRD) Af Amer 87 Est GFR (MDRD) Non-Af 72 BUN/Creatinine Ratio 10.8 Glucose 143 H Calcium 8.2 L Urine Color Yellow Urine Clarity Clear Urine pH 6.5 Ur Specific [place] 1.015 Urine Protein Negative Urine Glucose (UA) Normal Urine Ketones 50 H Urine Occult Blood Negative Urine Nitrite Negative Urine Bilirubin Negative Urine Urobilinogen Normal Ur Leukocyte Esterase Negative Urine RBC 0 SEEN Urine WBC 0 SEEN Ur Squamous Epith Cells 0 SEEN Urine Bacteria 0 SEEN Urine Mucus 0 SEEN Assessment/Plan And examined independently of physician therapist's assistant Bertin Castillo. Here with his above history, physical exam and assessment and plan. Patient was seen and examined, he will be going for MRI. Pain is fairly controlled at this point. Vitals were reviewed, show tachycardia. Labs reviewed showed leukocytosis been persistent. Reviewed imaging that showed bilateral pneumonia consistent with aspiration pneumonia. We will get speech therapy is on board with us. His will get copies of imaging done in [facility] to the hospital for comparison. Palliative care has been consulted. Dr. Gomez's reviewed in detail, he has plans of re-introducing hospice in the outpatient. Plan for now will be to continue IV antibiotics, IV hydration, control pain, and reassess goals of care. Code Visit Inpatient E&M: 31429 Subs Hosp L3
[2017-06-13] MEDS: Rivaroxaban 20 MG Tablet PO (17:10)
[2017-06-13] MEDS: guaiFENesin 1,200 MG Tablet 1200 MG PO (22:02)
[2017-06-14] VITALS (7 sets, daily range): BP systolic 98–108; BP diastolic 57–74; PULSE 87–96; RESP 18; TEMP 36.6–37.3; O2SAT 90–99
[2017-06-14] MEDS: 0.9% NaCl Peripheral Flush Adult/Peds IV ×3 (01:51→14:25)
[2017-06-14] MEDS: HYDROmorphone 1 MG/ML Syringe IV ×4 (01:51→14:25)
[2017-06-14] MEDS: Dext 5%-0.45% NS 1,000 ML 150 ML IV (04:19)
[2017-06-14] MEDS: Mag Hydrox/Al Hydrox/Simeth 30 ML UDC PO (05:03)
[2017-06-14 07:25] LABS: Anion Gap 8 (5-15); BUN 10 mg/dL (7-18); Calcium,Total 8.4 mg/dL (8.5-10.1); Chloride 96 mmol/L (98-107); Creatinine, Serum 1.11 mg/dL (0.70-1.30); EST Glomerular Filtration Rate 72 mL/min (>60); Est Glom Filt Rate - Afr Amer 87 mL/min (>60); Estimated Creatinine Clearance 74.18 ml/min; Glucose 121 mg/dL (74-106); Potassium 3.7 mmol/L (3.5-5.1); Sodium Level 131 mmol/L (136-145)
[2017-06-14 07:26] LABS: Absolute Lymphocyte Count 0.34 X10^3/ul (0.83-4.51); Absolute Neutrophil Count 11.6 X10^3/uL (2.0-7.7); Basophil# 0.02 X10^3/uL; Basophil% 0.2 % (0-1); Eosinophil# 0.24 X10^3/uL; Eosinophils% 1.8 % (0-5); Hematocrit 27.3 % (40-54); Hemoglobin 9.1 g/dl (13.0-16.5); Lymphocyte # 0.34 X10^3/ul (4.0); Lymphocyte % 2.6 % (19-41); Mean Corp Hgb Conc 33.3 g/gl (32-36); Mean Corpuscular Hgb 32.6 pg (27.0-32.0); Mean Corpuscular Volume 97.8 fL (80-94); Mean Platelet Vol. 9.9 fl (6.2-12.0); Monocyte# 0.99 X10^3/uL; Monocyte% 7.5 % (0-10); Neutrophil # 11.56 X10^3/uL (2.7-7.7); Neutrophil % 87.7 % (47-70); Platelet Count 271 K/mm3 (150-450); RBC Distribution Width CV 13.2 % (11.6-14.6); Red Blood Count 2.79 M/mm3 (4.6-6.2); White Blood Count 13.2 K/mm3 (4.4-11.0)
[2017-06-14 07:29] LABS: Differential Indicated SCAN CRITERIA MET; POSITIVE COUNT NO; POSITIVE DIFFERENTIAL YES; POSITIVE MORPHOLOGY NO
[2017-06-14] MEDS: Ipratropium/Albuterol Sulfate 3 ML AMPUL.NEB INHALATION (07:36)
[2017-06-14] MEDS: guaiFENesin 1,200 MG Tablet 1200 MG PO (10:27)
[2017-06-14] MEDS: Polyethylene Glycol 3350 17 GM PACKET PO (10:27)
[2017-06-14] MEDS: Famotidine 20 MG Tablet PO (11:20)
--- NOTE | 2017-06-14 11:32 | PCM.DC ---
- Discharge Diagnoses Current Active Problems: Current Active and Chronic Problems Metastasis from esophageal cancer (Chronic) Aspiration pneumonia (Acute) Hypotension (Acute) Chronic back pain (Chronic) You will use the following diet at home:: No restrictions, Other - Per speech therapy recommendation she will remain seated at 90? angle while eating at all times, he will need to remain upright for 30-60 minutes after he finished eating as well. Your food should be the consistency of: Mechanical soft (ground) Your liquids should be the consistency of: [place] Thick Additional Instructions: Please pursue outpatient speech therapy at discharge, this is available at [facility]. Allergies/Adverse Reactions: Allergies aspirin Allergy (Verified 06/12/17 14:15) Unknown Penicillins Allergy (Verified 06/12/17 16:56) Rash STEROIDS Adverse Reaction (Uncoded 06/12/17 16:56) Pt is not to have d/t alternative cancer therapy Medications to take at Discharge Loratadine [Claritin] 10 mg PO DAILY PRN 08/10/15 Omeprazole [Prilosec] 40 mg PO DAILY PRN 08/10/15 Biocellular 2 cap PO TIDCM 06/12/17 D3k2 2 each PO BID 06/12/17 Ling Harinder 2 each PO BID 06/12/17 Macrophage 0.4 units SQ DAILY 06/12/17 Macrophage [place] 0.5 units INHALATION DAILY 06/12/17 Oxycodone HCl 10 mg SL Q4H PRN PRN 06/12/17 Performance 2 cap PO TIDCM 06/12/17 Rivaroxaban [Xarelto] 20 mg PO DAILY 06/12/17 Sea Extract 15 drop PO BID 06/12/17 Ultra Pro 2 cap PO TID 06/12/17 Albuterol IH (ProAir) [Proair Hfa] 1 puff INHALATION Q4H PRN PRN #1 inhaler 06/14/17 Guaifenesin [Mucinex] 1,200 mg PO BID tablet 06/14/17 Hydromorphone HCl [Dilaudid] 4 mg PO Q4H PRN PRN #12 tablet 06/14/17 Metronidazole [Flagyl] 500 mg PO TID #24 tab 06/14/17 levoFLOXacin tablet [Levaquin tablet] 750 mg PO DAILY #8 tab 06/14/17 The following prescriptions were given: Albuterol IH (ProAir) [Proair Hfa] 1 puff INHALATION Q4H PRN PRN #1 inhaler PRN Reason: Sob &/Or Wheezing Hydromorphone HCl [Dilaudid] 4 mg PO Q4H PRN PRN #12 tablet PRN Reason: Pain Metronidazole [Flagyl] 500 mg PO TID #24 tab levoFLOXacin tablet [Levaquin tablet] 750 mg PO DAILY #8 tab Primary Care Physician: Yuriy Franz III, MD [Primary Care Provider] - Please follow up with your Primary Care Physician in: 1-2 weeks Please Follow Up With: Rahul Gomez DO When: Call for next appointment Please Follow Up With: Sharon Vance MD When: 06/16/2017 Proposed Discharge Date: 06/14/17
--- NOTE | 2017-06-14 11:36 | DCINST_ITS ---
- Discharge Diagnoses Current Active Problems: Current Active and Chronic Problems Metastasis from esophageal cancer (Chronic) Aspiration pneumonia (Acute) Hypotension (Acute) Chronic back pain (Chronic) You will use the following diet at home:: No restrictions, Other - Per speech therapy recommendation she will remain seated at 90? angle while eating at all times, he will need to remain upright for 30-60 minutes after he finished eating as well. Your food should be the consistency of: Mechanical soft (ground) Your liquids should be the consistency of: [place] Thick Additional Instructions: Please pursue outpatient speech therapy at discharge, this is available at [facility]. Allergies/Adverse Reactions: Allergies aspirin Allergy (Verified 06/12/17 14:15) Unknown Penicillins Allergy (Verified 06/12/17 16:56) Rash STEROIDS Adverse Reaction (Uncoded 06/12/17 16:56) Pt is not to have d/t alternative cancer therapy Medications to take at Discharge Loratadine [Claritin] 10 mg PO DAILY PRN 08/10/15 Omeprazole [Prilosec] 40 mg PO DAILY PRN 08/10/15 Biocellular 2 cap PO TIDCM 06/12/17 D3k2 2 each PO BID 06/12/17 Ling Harinder 2 each PO BID 06/12/17 Macrophage 0.4 units SQ DAILY 06/12/17 Macrophage [place] 0.5 units INHALATION DAILY 06/12/17 Oxycodone HCl 10 mg SL Q4H PRN PRN 06/12/17 Performance 2 cap PO TIDCM 06/12/17 Rivaroxaban [Xarelto] 20 mg PO DAILY 06/12/17 Sea Extract 15 drop PO BID 06/12/17 Ultra Pro 2 cap PO TID 06/12/17 Albuterol IH (ProAir) [Proair Hfa] 1 puff INHALATION Q4H PRN PRN #1 inhaler 06/27 Guaifenesin [Mucinex] 1,200 mg PO BID tablet 06/14/17 Hydromorphone HCl [Dilaudid] 4 mg PO Q4H PRN PRN #12 tablet 06/14/17 Metronidazole [Flagyl] 500 mg PO TID #24 tab 06/14/17 levoFLOXacin tablet [Levaquin tablet] 750 mg PO DAILY #8 tab 06/14/17 The following prescriptions were given: Albuterol IH (ProAir) [Proair Hfa] 1 puff INHALATION Q4H PRN PRN #1 inhaler PRN Reason: Sob &/Or Wheezing Hydromorphone HCl [Dilaudid] 4 mg PO Q4H PRN PRN #12 tablet PRN Reason: Pain Metronidazole [Flagyl] 500 mg PO TID #24 tab levoFLOXacin tablet [Levaquin tablet] 750 mg PO DAILY #8 tab Primary Care Physician: Yuriy Franz III, MD [Primary Care Provider] - Please follow up with your Primary Care Physician in: 1-2 weeks Please Follow Up With: Rahul Gomez DO When: Call for next appointment Please Follow Up With: Sharon Vance MD When: 06/16/2017 Proposed Discharge Date: 06/14/17
--- NOTE | 2017-06-14 13:11 | PCM.DC.SUM ---
<Bertin Castillo - Last Filed: 06/14/17 13:11> Discharge Date and Diagnosis - Problem List Patient Problems: Active and Suspected Problems Aspiration pneumonia (Acute) Hypotension (Acute) Date of Admission: 06/12/17 Date of Discharge: 06/14/17 - Primary Discharge Diagnosis Active and Suspected Problems Acute sepsis 2/2 aspiration pna (with gram neg rods) 2/2 dysphagia 2/2 terminal stage 4 esophageal cancer JAYCEE with hydronephrosis 2/2 sepsis Moderate protein malnutrition 2/2 poor PO intake GERD Acute on chronic back pain 2/2 DDD and facet arthropathy Hypokalemia resolved Mild macrocytic anemia - Secondary Discharge Diagnosis Chronic Problems Metastasis from esophageal cancer (Chronic) Chronic back pain (Chronic) Hospital Course and Treatment Imaging Results: RAD/Chest PA and Lateral IMPRESSION: Bilateral pneumonia. RAD/Lumbar Spine 2 or 3 Views IMPRESSION: Grossly stable degenerative changes of the spine, as detailed above, most prominent at L4-5. RAD/Orbits for Foreign Body IMPRESSION: No evidence of metallic foreign body, clearance for MRI. MRI/Spine Lumbar (Routine) IMPRESSION: Multilevel degenerative changes, as described above, including facet arthropathy. L2/3: There is a diffuse bulge. There is mild right worse than left neuroforaminal stenosis. L3/4: There is a small broad-based left foraminal protrusion. There is mild bilateral neuroforaminal stenosis. L4/5: There is mild right neuroforaminal stenosis. L5/S1: There is a diffuse bulge. There is mild bilateral neuroforaminal stenosis. There appears to be significant left hydronephrosis. US/Kidney and Bladder IMPRESSION: Moderate left-sided hydronephrosis. Consultations: Basali - pain management Masci - oncology Operations: None Procedures: None Summary of Care Provided: Physical exam on day of discharge: General: Resting comfortably NAD, frail, voice barely a whisper Psych: A/Ox3 normal affect HEENT: PEARRLA AT NC Neck: Supple NT CV: RRR no m/t/r/g/h Resp: Expiratory wheezing Abd: [id number] Soft NT no guarding or rigidity Ext: DP2+= no edema Skin: W/D normal turgor Lymph/Heme: No active bleeding or adenopathy Neuro: CN2-12 intact Hospital course: The patient is a 57 year old M with stage IV esophageal cancer with metastasis to a lymph node and to his liver chronic back pain, former smoker, who presented to the emergency room with fevers, chills, shortness of breath and cough. He was found to be septic with a fever, tachycardia, significantly elevated leukocytosis, bilateral pneumonia on chest x-ray read given his esophageal cancer history of dysphasia it was presumed aspiration. He is allergic to penicillin so he was started on Levaquin and Flagyl. He improved significantly overnight. The patient was very malnourished and had lost 15 pounds recently and it was discovered that he was attempting a curative treatment for his stage IV cancer that is not susceptible to any specific forms of chemotherapy per Dr. Gomez, by following a natural pathic recommendation from . he would not provide me any details of, who told him that he should have a 0 carb diet and that he could only eat protein at home and take multiple supplements. The patient did inform me that he felt that this could be potentially curative for his cancer. We had dietitian meet with him who asked him to be placed on dietary supplements however he was very reluctant to consider this given the recommendation made by the naturopathic provider. The patient had also told me that he had stopped taking his PPI as he had felt that it was impeding the absorption of his pain medications. I strongly recommended that he go back on the PPI given his reflux and aspiration. He underwent speech therapy evaluations with swallow studies which demonstrated aspiration. They advised for him to go on a soft mechanical and nectar thickened liquid diet and to have continued outpatient speech therapy. I wrote for him to have outpatient speech therapy and made the dietary recommendations and his discharge instructions. He had severe lower back pain from prior lower back injuries. Dr. Vance from pain management was consulted. MRI of the spine was obtained, no metastases, showed significant spinal stenosis, bulging disks, and facet arthropathy. His pneumonia responded well to the antibiotics. He also presented in [place] with hydronephrosis for which she was given IV fluids. This was felt to be secondary to sepsis and improved overnight. He will need to have his renal function followed up with as an outpatient. The patient decided that he would prefer to go home on oral pain medications as opposed to staying in the hospital until Friday to be seen by Dr. Vance. We decided to convert his Levaquin and Flagyl to oral for 8 more days for a total of 10 days of therapy, at this time his sputum culture is showing gram-negative rods possible Pseudomonas. He had a recent prescription from Dr. Gomez for Percocet, and we added a small amount of oral Dilaudid to take in addition at home for the next 2 days only before he is able to see pain management as an outpatient. He required significant amounts of IV Dilaudid to make his pain even tolerable while he was here. He did remain somewhat wheezy at the time of discharge and I added an albuterol inhaler for him for home-going. He was discharged home in stable condition, he will need to follow-up with Dr. Gomez, Dr. Vance, his PCP, and with outpatient speech therapy. This patient was seen by Bertin Castillo PA-C under the supervision of Doctor Bowman. [] Discharge Diet: - - Soft mechanical, nectar thickened liquids Home Medications: Medications to take at Discharge Loratadine [Claritin] 10 mg PO DAILY PRN 08/10/15 Omeprazole [Prilosec] 40 mg PO DAILY PRN 08/10/15 Biocellular 2 cap PO TIDCM 06/12/17 D3k2 2 each PO BID 06/12/17 Ling Harinder 2 each PO BID 06/12/17 Macrophage 0.4 units SQ DAILY 06/12/17 Macrophage [place] 0.5 units INHALATION DAILY 06/12/17 Oxycodone HCl 10 mg SL Q4H PRN PRN 06/12/17 Performance 2 cap PO TIDCM 06/12/17 Rivaroxaban [Xarelto] 20 mg PO DAILY 06/12/17 Sea Extract 15 drop PO BID 06/12/17 Ultra Pro 2 cap PO TID 06/12/17 Albuterol IH (ProAir) [Proair Hfa] 1 puff INHALATION Q4H PRN PRN #1 inhaler 06/14/17 Guaifenesin [Mucinex] 1,200 mg PO BID tablet 06/14/17 Hydromorphone HCl [Dilaudid] 4 mg PO Q4H PRN PRN #12 tablet 06/14/17 Metronidazole [Flagyl] 500 mg PO TID #24 tab 06/14/17 levoFLOXacin tablet [Levaquin tablet] 750 mg PO DAILY #8 tab 06/14/17 Following Prescrptions Were Given to Patient: Albuterol IH (ProAir) [Proair Hfa] 1 puff INHALATION Q4H PRN PRN #1 inhaler PRN Reason: Sob &/Or Wheezing Hydromorphone HCl [Dilaudid] 4 mg PO Q4H PRN PRN #12 tablet PRN Reason: Pain Metronidazole [Flagyl] 500 mg PO TID #24 tab levoFLOXacin tablet [Levaquin tablet] 750 mg PO DAILY #8 tab Other Amb Orders: Miscellaneous Order Time Frame: 2 Days, Location: None Selected Primary Care Physician: Yuriy Franz III, MD [Primary Care Provider] - Please follow up with your Primary Care Physician in: 1-2 weeks Please Follow Up With: Rahul Gomez DO When: Call for next appointment Please Follow Up With: Sharon Vance MD When: 06/16/2017 Additional Instructions: Continue outpatient speech therapy Disposition: Home Minutes spent on discharge:: 40 Patient Condition:: Stable Medical Necessity - Tobacco Use Smoking Status: Former smoker - About 2 years ago. History of multiple relapses. Started in his 20s, about 30 pack years of smoking Meaningful Use Info Meaningful Use Diagnoses (Choose all that apply): None applicable <Gia Bowman - Last Filed: 06/14/17 13:33> Discharge Date and Diagnosis - Primary Discharge Diagnosis Active and Suspected Problems Aspiration pneumonia (Acute) Hypotension (Acute) - Secondary Discharge Diagnosis Chronic Problems Metastasis from esophageal cancer (Chronic) Chronic back pain (Chronic) Hospital Course and Treatment Summary of Care Provided: The patient is a 57 year old M [] Code Visit Inpatient E&M: 87064 Disch Hosp
--- NOTE | 2017-06-14 13:26 | DS.PCM_ITS ---
<Bertin Castillo - Last Filed: 06/14/17 13:11> Discharge Date and Diagnosis - Problem List Patient Problems: Active and Suspected Problems Aspiration pneumonia (Acute) Hypotension (Acute) Date of Admission: 06/12/17 Date of Discharge: 06/14/17 - Primary Discharge Diagnosis Active and Suspected Problems Acute sepsis 2/2 aspiration pna (with gram neg rods) 2/2 dysphagia 2/2 terminal stage 4 esophageal cancer JAYCEE with hydronephrosis 2/2 sepsis Moderate protein malnutrition 2/2 poor PO intake GERD Acute on chronic back pain 2/2 DDD and facet arthropathy Hypokalemia resolved Mild macrocytic anemia - Secondary Discharge Diagnosis Chronic Problems Metastasis from esophageal cancer (Chronic) Chronic back pain (Chronic) Hospital Course and Treatment Imaging Results: RAD/Chest PA and Lateral IMPRESSION: Bilateral pneumonia. RAD/Lumbar Spine 2 or 3 Views IMPRESSION: Grossly stable degenerative changes of the spine, as detailed above, most prominent at L4-5. RAD/Orbits for Foreign Body IMPRESSION: No evidence of metallic foreign body, clearance for MRI. MRI/Spine Lumbar (Routine) IMPRESSION: Multilevel degenerative changes, as described above, including facet arthropathy. L2/3: There is a diffuse bulge. There is mild right worse than left neuroforaminal stenosis. L3/4: There is a small broad-based left foraminal protrusion. There is mild bilateral neuroforaminal stenosis. L4/5: There is mild right neuroforaminal stenosis. L5/S1: There is a diffuse bulge. There is mild bilateral neuroforaminal stenosis. There appears to be significant left hydronephrosis. US/Kidney and Bladder IMPRESSION: Moderate left-sided hydronephrosis. Consultations: Basali - pain management Masci - oncology Operations: None Procedures: None Summary of Care Provided: Physical exam on day of discharge: General: Resting comfortably NAD, frail, voice barely a whisper Psych: A/Ox3 normal affect HEENT: [place] AT NC Neck: Supple NT CV: RRR no m/t/r/g/h Resp: Expiratory wheezing Abd: [id number] Soft NT no guarding or rigidity Ext: DP2+= no edema Skin: W/D normal turgor Lymph/Heme: No active bleeding or adenopathy Neuro: CN2-12 intact Hospital course: The patient is a 57 year old M with stage IV esophageal cancer with metastasis to a lymph node and to his liver chronic back pain, former smoker, who presented to the emergency room with fevers, chills, shortness of breath and cough. He was found to be septic with a fever, tachycardia, significantly elevated leukocytosis, bilateral pneumonia on chest x-ray read given his esophageal cancer history of dysphasia it was presumed aspiration. He is allergic to penicillin so he was started on Levaquin and Flagyl. He improved significantly overnight. The patient was very malnourished and had lost 15 pounds recently and it was discovered that he was attempting a curative treatment for his stage IV cancer that is not susceptible to any specific forms of chemotherapy per Dr. Gomez, by following a natural pathic recommendation from . he would not provide me any details of, who told him that he should have a 0 carb diet and that he could only eat protein at home and take multiple supplements. The patient did inform me that he felt that this could be potentially curative for his cancer. We had dietitian meet with him who asked him to be placed on dietary supplements however he was very reluctant to consider this given the recommendation made by the naturopathic provider. The patient had also told me that he had stopped taking his PPI as he had felt that it was impeding the absorption of his pain medications. I strongly recommended that he go back on the PPI given his reflux and aspiration. He underwent speech therapy evaluations with swallow studies which demonstrated aspiration. They advised for him to go on a soft mechanical and nectar thickened liquid diet and to have continued outpatient speech therapy. I wrote for him to have outpatient speech therapy and made the dietary recommendations and his discharge instructions. He had severe lower back pain from prior lower back injuries. Dr. Vance from pain management was consulted. MRI of the spine was obtained, no metastases, showed significant spinal stenosis, bulging disks, and facet arthropathy. His pneumonia responded well to the antibiotics. He also presented in [place] with hydronephrosis for which she was given IV fluids. This was felt to be secondary to sepsis and improved overnight. He will need to have his renal function followed up with as an outpatient. The patient decided that he would prefer to go home on oral pain medications as opposed to staying in the hospital until Friday to be seen by Dr. Vance. We decided to convert his Levaquin and Flagyl to oral for 8 more days for a total of 10 days of therapy, at this time his sputum culture is showing gram-negative rods possible Pseudomonas. He had a recent prescription from Dr. Gomez for Percocet, and we added a small amount of oral Dilaudid to take in addition at home for the next 2 days only before he is able to see pain management as an outpatient. He required significant amounts of IV Dilaudid to make his pain even tolerable while he was here. He did remain somewhat wheezy at the time of discharge and I added an albuterol inhaler for him for home-going. He was discharged home in stable condition, he will need to follow-up with Dr. Gomez, Dr. Vance, his PCP , and with outpatient speech therapy. This patient was seen by Bertin Castillo PA-C under the supervision of Doctor Bowman. [] Discharge Diet: - - Soft mechanical, nectar thickened liquids Home Medications: Medications to take at Discharge Loratadine [Claritin] 10 mg PO DAILY PRN 08/10/15 Omeprazole [Prilosec] 40 mg PO DAILY PRN 08/10/15 Biocellular 2 cap PO TIDCM 06/12/17 D3k2 2 each PO BID 06/12/17 Ling Harinder 2 each PO BID 06/12/17 Macrophage 0.4 units SQ DAILY 06/12/17 Macrophage [place] 0.5 units INHALATION DAILY 06/12/17 Oxycodone HCl 10 mg SL Q4H PRN PRN 06/12/17 Performance 2 cap PO TIDCM 06/12/17 Rivaroxaban [Xarelto] 20 mg PO DAILY 06/12/17 Sea Extract 15 drop PO BID 06/12/17 Ultra Pro 2 cap PO TID 06/12/17 Albuterol IH (ProAir) [Proair Hfa] 1 puff INHALATION Q4H PRN PRN #1 inhaler 06/27 Guaifenesin [Mucinex] 1,200 mg PO BID tablet 06/14/17 Hydromorphone HCl [Dilaudid] 4 mg PO Q4H PRN PRN #12 tablet 06/14/17 Metronidazole [Flagyl] 500 mg PO TID #24 tab 06/14/17 levoFLOXacin tablet [Levaquin tablet] 750 mg PO DAILY #8 tab 06/14/17 Following Prescrptions Were Given to Patient: Albuterol IH (ProAir) [Proair Hfa] 1 puff INHALATION Q4H PRN PRN #1 inhaler PRN Reason: Sob &/Or Wheezing Hydromorphone HCl [Dilaudid] 4 mg PO Q4H PRN PRN #12 tablet PRN Reason: Pain Metronidazole [Flagyl] 500 mg PO TID #24 tab levoFLOXacin tablet [Levaquin tablet] 750 mg PO DAILY #8 tab Other Amb Orders: Miscellaneous Order Time Frame: 2 Days, Location: None Selected Primary Care Physician: Yuriy Franz III, MD [Primary Care Provider] - Please follow up with your Primary Care Physician in: 1-2 weeks Please Follow Up With: Rahul Gomez DO When: Call for next appointment Please Follow Up With: Sharon Vance MD When: 06/16/2017 Additional Instructions: Continue outpatient speech therapy Disposition: Home Minutes spent on discharge:: 40 Patient Condition:: Stable Medical Necessity - Tobacco Use Smoking Status: Former smoker - About 2 years ago. History of multiple relapses. Started in his 20s, about 30 pack years of smoking Meaningful Use Info Meaningful Use Diagnoses (Choose all that apply): None applicable <Gia Bowman - Last Filed: 06/14/17 13:33> Discharge Date and Diagnosis - Primary Discharge Diagnosis Active and Suspected Problems Aspiration pneumonia (Acute) Hypotension (Acute) - Secondary Discharge Diagnosis Chronic Problems Metastasis from esophageal cancer (Chronic) Chronic back pain (Chronic) Hospital Course and Treatment Summary of Care Provided: The patient is a 57 year old M [] Code Visit Inpatient E&M: 22901 Disch Hosp
--- NOTE | 2017-06-17 11:10 | CASEMGMT ---
CRISTINA CHRISTENSEN DC phone call. Call to home- answered and was able to tell CRISTINA CHRISTENSEN that treatment was for pneumonia, pt was improving, understands dc instructions and prescriptions. No questions regarding either. F/U appointments had been made, and pt saw Dr. Vance yesterday. CRISTINA CHRISTENSEN asked re: any concerns re: stay and stated no, everything was fine. CRISTINA CHRISTENSEN thanked her for utilizing [facility]. Brenda LONDON RN ACM
== END 2017-06-14 15:37 | disposition home or self-care (01) | DRG 871 ==
LOC: ED 15:00 → PCU 17:06
PROVIDERS: Admitting Provider Internal Medicine; Emergency Provider Emergency Medicine; Family Provider Family Medicine; PCP Family Medicine; Visit Provider Internal Medicine
DX: A41.9 Sepsis, unspecified organism (principal); J69.0 Pneumonitis due to inhalation of food and vomit; C15.9 Malignant neoplasm of esophagus, unspecified; C78.7 Secondary malignant neoplasm of liver and intrahepatic bile duct; C77.9 Secondary and unspecified malignant neoplasm of lymph node, unspecified; C78.89 Secondary malignant neoplasm of other digestive organs; E44.0 Moderate protein-calorie malnutrition; N17.9 Acute kidney failure, unspecified; N13.30 Unspecified hydronephrosis; Z87.891 Personal history of nicotine dependence; G58.8 Other specified mononeuropathies; K21.9 Gastro-esophageal reflux disease without esophagitis; Z90.49 Acquired absence of other specified parts of digestive tract; Z68.21 Body mass index [BMI] 21.0-21.9, adult; Z79.891 Long term (current) use of opiate analgesic; Z79.899 Other long term (current) drug therapy; I10 Essential (primary) hypertension; R13.10 Dysphagia, unspecified; E87.6 Hypokalemia; D72.829 Elevated white blood cell count, unspecified; D53.9 Nutritional anemia, unspecified; M48.061 Spinal stenosis, lumbar region without neurogenic claudication; M12.88 Other specific arthropathies, not elsewhere classified, other specified site
CPT/HCPCS: 36415; 70030; 71046; 72100; 72148; 74230; 76770; 80048; 80053; 81001; 83605; 85025; 85610; 85730; 87040; 87070; 87077; 87086; 87184; 87186; 87205; 87449; 87633; 92507; 92611; 94640; 94667; 94668; 97802; 99285; J7030; J7040; A4216; J2405; J7799

== ENCOUNTER 2017-07-23 21:19 | Inpatient (IN) | payer OTHER, SELFPAY ==
[2017-07-23 21:24] VITALS: BP 110/59; PULSE 100; PULSE 99; RESP 18; TEMP 36; O2SAT 97; O2SAT 98; BMI 21.1
--- NOTE | 2017-07-23 22:37 | EKG12_ITS ---
Test Reason : SOB Blood Pressure : / mmHG Vent. Rate : 103 BPM Atrial Rate : 103 BPM P-R Int : 124 ms QRS Dur : 092 ms QT Int : 360 ms P-R-T Axes : 057 066 076 degrees QTc Int : 471 ms Sinus tachycardia Nonspecific ST abnormality Abnormal ECG Confirmed by MICKEY COOK, CARLITOS ([id number]), food editor ARSENIO GRANDA ([id number]) on 07/25/2017 2:50:18 PM Referred By: DR CRUZ Confirmed By:CARLITOS AREVALO MD
--- NOTE | 2017-07-23 22:37 | RAD_ITS ---
STUDY: X-RAY CHEST REASON FOR EXAM: Male, 57 years old. Shortness of breath TECHNIQUE: Frontal and lateral views of the chest. COMPARISON: 06/12/17. FINDINGS: The lungs are expanded. Right lower lung opacity. Right effusion. There is no demonstrated pleural abnormality. Normal size heart. Normal mediastinum and paulie. Normal visualized pulmonary arteries. Normal visualized aortic arch and descending thoracic aorta. Normal visualized thoracic spine. Normal visualized ribs, clavicles, and shoulders. There is no demonstrated abnormality of the visualized soft tissue structures of the upper abdomen. RAD/Chest PA and Lateral IMPRESSION: Right lower lung infiltrate. Right effusion. Electronically Signed: Jatin Reynolds DO at 23:46 EDT , Service support ,
--- NOTE | 2017-07-23 22:38 | RAD_ITS ---
STUDY: X-RAY - ABDOMEN/PELVIS REASON FOR EXAM: Male, 57 years old. Shortness of breath TECHNIQUE: AP supine and upright views of the abdomen and pelvis. COMPARISON: None. FINDINGS: Normal visualized lung bases. There is an unremarkable bowel gas pattern. There is no demonstrated free abdominal air. Surgical clips left upper quadrant. The visualized liver, spleen and kidneys are grossly normal in size and morphology. Normal soft tissue structures. Normal visualized osseous structures. RAD/Abd Inc Decub and/or Erect IMPRESSION: Normal x-ray examination of the abdomen and pelvis. Electronically Signed: Jatin Reynolds DO at 23:42 EDT , Service support ,
--- NOTE | 2017-07-23 22:39 | ED.VISSUMM ---
- ER Visit Summary Date of Service: 07/23/17 Chief Complaint: Shortness of breath History of Present Illness: The patient is a 57 M with history of stage IV esophageal cancer, recent history of aspiration pneumonia with sepsis and [place] I, who presents for 1 day of worsening shortness of breath. Patient states yesterday he feels like he aspirated liquid. He has a history of an esophagectomy with gastric pull-up, and is limited in positions he can sit in. He leaned forward and felt like he was able to vomit up the liquid that he aspirated. Today however he began needing his home oxygen and was coughing up agosto sputum. He has right lower chest discomfort. Denies fever. Complaining of chronic back pain. Patient has constipation from chronic opiate use and is complaining of difficulty passing flatus and upper abdominal pain bilaterally. Patient is on Xarelto. Physical Examination: Vital signs: afebrile, hemodynamically stable, 97% on nasal cannula General: Cachectic, appears uncomfortable sitting in bed, fidgety Skin: warm, dry, no rash, no pallor HEENT: normocephalic and atraumatic; PERRL, EOMI, moist mucous membranes Cardiovascular: Tachycardic rate and rhythm without murmurs, no peripheral edema, 2+ pulses all distal extremities Respiratory: Mild increased work of breathing, lungs rhonchi in the right middle and lower ell[place]ott Abdominal: Abdomen is soft, tender in the upper quadrants with normoactive bowel sounds, no guarding or rebound, no masses MSK: Moves all extremities, no deformities, normal strength Neuro: Awake and alert, oriented ?4. No facial droop, sensation and motor function intact and symmetric Test Results: Abnormal Lab Results 07/23/17 07/23/17 07/23/17 22:50 22:50 22:50 WBC 7.4 RBC 3.95 L Hgb 12.0 L Hct 35.7 L MCV 90.4 MCH 30.4 MCHC 33.6 RDW 13.8 RDW Differential 45.4 H Plt Count 244 MPV 9.7 Immature Gran % (Auto) 0.100 Neut % (Auto) 90.1 H Lymph % (Auto) 3.8 L [place] % (Auto) 5.2 Eos % (Auto) 0.7 Baso % (Auto) 0.1 Absolute Neuts (auto) 6.6 Absolute Lymphs (auto) 0.28 L Total Counted Not Reportable Differential Comment SCANNED PT 14.4 INR 1.1 APTT 33.2 Sodium 128 L Potassium 4.1 Chloride 89 L Carbon Dioxide 29.0 Anion Gap 10 BUN 22 H Creatinine 0.86 Estim Creat Clear Calc 96.11 Est GFR (MDRD) Af Amer 117 Est GFR (MDRD) Non-Af 96 BUN/Creatinine Ratio 25.5 H Glucose 121 H Lactic Acid Calcium 9.4 Total Bilirubin 0.50 AST 47 H ALT 18 Alkaline Phosphatase 126 H Troponin I < 0.015 Total Protein 8.0 Albumin 3.1 L Globulin 4.9 H Albumin/Globulin Ratio 0.6 L Urine Color Urine Clarity Urine pH Ur Specific [place] Urine Protein Urine Glucose (UA) Urine Ketones Urine Occult Blood Urine Nitrite Urine Bilirubin Urine Urobilinogen Ur Leukocyte Esterase Urine RBC Urine WBC Ur Squamous Epith Cells Urine Bacteria Urine Mucus 07/23/17 07/23/17 22:50 22:50 WBC RBC Hgb Hct MCV MCH MCHC RDW RDW Differential Plt Count MPV Immature Gran % (Auto) Neut % (Auto) Lymph % (Auto) [place] % (Auto) Eos % (Auto) Baso % (Auto) Absolute Neuts (auto) Absolute Lymphs (auto) Total Counted Differential Comment PT INR APTT Sodium Potassium Chloride Carbon Dioxide Anion Gap BUN Creatinine Estim Creat Clear Calc Est GFR (MDRD) Af Amer Est GFR (MDRD) Non-Af BUN/Creatinine Ratio Glucose Lactic Acid 1.9 Calcium Total Bilirubin AST ALT Alkaline Phosphatase Troponin I Total Protein Albumin Globulin Albumin/Globulin Ratio Urine Color Yellow Urine Clarity Clear Urine pH 6.0 Ur Specific [place] 1.020 Urine Protein 30 H Urine Glucose (UA) Normal Urine Ketones 50 H Urine Occult Blood 10 H Urine Nitrite Negative Urine Bilirubin 1 H Urine Urobilinogen 1 H Ur Leukocyte Esterase Negative Urine RBC 0 SEEN Urine WBC 0 SEEN Ur Squamous Epith Cells 0 SEEN Urine Bacteria 0 SEEN Urine Mucus RARE Clinical Impression(s) from Imaging Studies Chest X-Ray 07/23/17 22:37 IMPRESSION: Right lower lung infiltrate. Right effusion. Electronically Signed: Jatin Reynolds DO at 23:46 EDT , Service support , Abdomen X-Ray 06/13/18 22:38 IMPRESSION: Normal x-ray examination of the abdomen and pelvis. Electronically Signed: Jatin Reynolds DO at 23:42 EDT , Service support , Emergency Department Course and Treatment: Patient presents with shortness of breath and right-sided chest discomfort after concern for aspiration of liquid yesterday secondary to his esophageal cancer. Patient was admitted 1 month ago with similar symptoms and had pneumonia, positive for gram negative rods. Patient is afebrile, normotensive, mildly tachycardic. Chest x-ray showed a right lower lobe infiltrate and effusion. Given the patient was also complaining of some abdominal pain, and abdominal x-ray was obtained that showed no obstruction or free air. Because of patient's chest pain, EKG was performed and showed a sinus tachycardia without ischemic changes. Labs showed no leukocytosis but did have a neutrophil predominance. Chemistry remarkable for hyponatremia of 128. Urine negative for infection. Troponin negative. Lactate within normal range at 1.9. Urine cultures and blood cultures are pending. Patient was kept on his home nasal cannula. He is allergic to penicillins, and has the history of the gram-negative pneumonia, now returning within 1 month with similar complaint. He was started on vancomycin, cefepime and Levaquin for broad coverage, including Pseudomonas. Patient began complaining of back pain, and requested his home medications. He was given gabapentin and oxycodone solution. Discussed goals of care with the family, and patient is full code. Patient was discussed with the hospitalist and admitted for further management of his pneumonia and other complaints. Treatment Plan: [] Disposition: [] Impression: 1. Right lower lobe pneumonia, hospital-acquired versus aspiration 2. Hyponatremia 3. Chronic back pain 4. Dehydration 5. Stage IV esophageal cancer This note was generated with [employer] dictation software. It may contain incorrect words, spelling, and punctuation that were not noted in review of the chart prior to signing ED Disposition - Plan for ED Patient: Chief Complaint: Shortness of Breath
--- NOTE | 2017-07-23 22:43 | ED.DCSUM_ITS ---
- ER Visit Summary Date of Service: 07/23/17 Chief Complaint: Shortness of breath History of Present Illness: The patient is a 57 M with history of stage IV esophageal cancer, recent history of aspiration pneumonia with sepsis and [place] I, who presents for 1 day of worsening shortness of breath. Patient states yesterday he feels like he aspirated liquid. He has a history of an esophagectomy with gastric pull-up, and is limited in positions he can sit in. He leaned forward and felt like he was able to vomit up the liquid that he aspirated. Today however he began needing his home oxygen and was coughing up agosto sputum. He has right lower chest discomfort. Denies fever. Complaining of chronic back pain. Patient has constipation from chronic opiate use and is complaining of difficulty passing flatus and upper abdominal pain bilaterally. Patient is on Xarelto. Physical Examination: Vital signs: afebrile, hemodynamically stable, 97% on nasal cannula General: Cachectic, appears uncomfortable sitting in bed, fidgety Skin: warm, dry, no rash, no pallor HEENT: normocephalic and atraumatic; PERRL, EOMI, moist mucous membranes Cardiovascular: Tachycardic rate and rhythm without murmurs, no peripheral edema , 2+ pulses all distal extremities Respiratory: Mild increased work of breathing, lungs rhonchi in the right middle and lower ell[place] Abdominal: Abdomen is soft, tender in the upper quadrants with normoactive bowel sounds, no guarding or rebound, no masses MSK: Moves all extremities, no deformities, normal strength Neuro: Awake and alert, oriented ?4. No facial droop, sensation and motor function intact and symmetric Test Results: Abnormal Lab Results 07/23/17 07/23/17 07/23/17 22:50 22:50 22:50 WBC 7.4 RBC 3.95 L Hgb 12.0 L Hct 35.7 L MCV 90.4 MCH 30.4 MCHC 33.6 RDW 13.8 RDW Differential 45.4 H Plt Count 244 MPV 9.7 Immature Gran % (Auto) 0.100 Neut % (Auto) 90.1 H Lymph % (Auto) 3.8 L [place] % (Auto) 5.2 Eos % (Auto) 0.7 Baso % (Auto) 0.1 Absolute Neuts (auto) 6.6 Absolute Lymphs (auto) 0.28 L Total Counted Not Reportable Differential Comment SCANNED PT 14.4 INR 1.1 APTT 33.2 Sodium 128 L Potassium 4.1 Chloride 89 L Carbon Dioxide 29.0 Anion Gap 10 BUN 22 H Creatinine 0.86 Estim Creat Clear Calc 96.11 Est GFR (MDRD) Af Amer 117 Est GFR (MDRD) Non-Af 96 BUN/Creatinine Ratio 25.5 H Glucose 121 H Lactic Acid Calcium 9.4 Total Bilirubin 0.50 AST 47 H ALT 18 Alkaline Phosphatase 126 H Troponin I < 0.015 Total Protein 8.0 Albumin 3.1 L Globulin 4.9 H Albumin/Globulin Ratio 0.6 L Urine Color Urine Clarity Urine pH Ur Specific [place] Urine Protein Urine Glucose (UA) Urine Ketones Urine Occult Blood Urine Nitrite Urine Bilirubin Urine Urobilinogen Ur Leukocyte Esterase Urine RBC Urine WBC Ur Squamous Epith Cells Urine Bacteria Urine Mucus 07/23/17 07/23/17 22:50 22:50 WBC RBC Hgb Hct MCV MCH MCHC RDW RDW Differential Plt Count MPV Immature Gran % (Auto) Neut % (Auto) Lymph % (Auto) [place] % (Auto) Eos % (Auto) Baso % (Auto) Absolute Neuts (auto) Absolute Lymphs (auto) Total Counted Differential Comment PT INR APTT Sodium Potassium Chloride Carbon Dioxide Anion Gap BUN Creatinine Estim Creat Clear Calc Est GFR (MDRD) Af Amer Est GFR (MDRD) Non-Af BUN/Creatinine Ratio Glucose Lactic Acid 1.9 Calcium Total Bilirubin AST ALT Alkaline Phosphatase Troponin I Total Protein Albumin Globulin Albumin/Globulin Ratio Urine Color Yellow Urine Clarity Clear Urine pH 6.0 Ur Specific [place] 1.020 Urine Protein 30 H Urine Glucose (UA) Normal Urine Ketones 50 H Urine Occult Blood 10 H Urine Nitrite Negative Urine Bilirubin 1 H Urine Urobilinogen 1 H Ur Leukocyte Esterase Negative Urine RBC 0 SEEN Urine WBC 0 SEEN Ur Squamous Epith Cells 0 SEEN Urine Bacteria 0 SEEN Urine Mucus RARE Clinical Impression(s) from Imaging Studies Chest X-Ray 07/23/17 22:37 IMPRESSION: Right lower lung infiltrate. Right effusion. Electronically Signed: Jatin Reynolds DO at 23:46 EDT , Service support , Abdomen X-Ray 06/13/18 22:38 IMPRESSION: Normal x-ray examination of the abdomen and pelvis. Electronically Signed: Jatin Reynolds DO at 23:42 EDT , Service support , Emergency Department Course and Treatment: Patient presents with shortness of breath and right-sided chest discomfort after concern for aspiration of liquid yesterday secondary to his esophageal cancer. Patient was admitted 1 month ago with similar symptoms and had pneumonia, positive for gram negative rods. Patient is afebrile, normotensive, mildly tachycardic. Chest x-ray showed a right lower lobe infiltrate and effusion. Given the patient was also complaining of some abdominal pain, and abdominal x-ray was obtained that showed no obstruction or free air. Because of patient's chest pain, EKG was performed and showed a sinus tachycardia without ischemic changes. Labs showed no leukocytosis but did have a neutrophil predominance. Chemistry remarkable for hyponatremia of 128. Urine negative for infection. Troponin negative. Lactate within normal range at 1.9. Urine cultures and blood cultures are pending. Patient was kept on his home nasal cannula. He is allergic to penicillins, and has the history of the gram-negative pneumonia, now returning within 1 month with similar complaint. He was started on vancomycin, cefepime and Levaquin for broad coverage, including Pseudomonas. Patient began complaining of back pain, and requested his home medications. He was given gabapentin and oxycodone solution. Discussed goals of care with the family, and patient is full code. Patient was discussed with the hospitalist and admitted for further management of his pneumonia and other complaints. Treatment Plan: [] Disposition: [] Impression: 1. Right lower lobe pneumonia, hospital-acquired versus aspiration 2. Hyponatremia 3. Chronic back pain 4. Dehydration 5. Stage IV esophageal cancer This note was generated with [employer] dictation software. It may contain incorrect words, spelling, and punctuation that were not noted in review of the chart prior to signing ED Disposition - Plan for ED Patient: Chief Complaint: Shortness of Breath
--- NOTE | 2017-07-23 22:46 | ED.RN ---
NO OLD EKGS IN MUSE.
[2017-07-23] MEDS: 0.9% Normal Saline 1,000 ML 999 ML IV (22:52)
[2017-07-23 22:59] VITALS: PULSE 97; RESP 20; O2SAT 99
[2017-07-23 23:05] LABS: Bacteria 0 SEEN /hpf (None Seen); Red Blood Cells-Urine 0 SEEN /hpf (0-5); Squamous Epithelial Cells - UA 0 SEEN /hpf (0-5); White Blood Cells 0 SEEN /hpf (0-5)
[2017-07-23 23:10] LABS: Absolute Lymphocyte Count 0.28 X10^3/ul (0.83-4.51); Absolute Neutrophil Count 6.6 X10^3/uL (2.0-7.7); Basophil# 0.01 X10^3/uL; Basophil% 0.1 % (0-1); Eosinophil# 0.05 X10^3/uL; Eosinophils% 0.7 % (0-5); Hematocrit 35.7 % (40-54); Lymphocyte # 0.28 X10^3/ul (4.0); Lymphocyte % 3.8 % (19-41); Mean Corp Hgb Conc 33.6 g/gl (32-36); Mean Corpuscular Hgb 30.4 pg (27.0-32.0); Mean Corpuscular Volume 90.4 fL (80-94); Mean Platelet Vol. 9.7 fl (6.2-12.0); Monocyte# 0.38 X10^3/uL; Monocyte% 5.2 % (0-10); Neutrophil # 6.63 X10^3/uL (2.7-7.7); Neutrophil % 90.1 % (47-70); Platelet Count 244 K/mm3 (150-450); RBC Distribution Width CV 13.8 % (11.6-14.6); RBC Distribution Width SD 45.4 fl (35.1-43.9); Red Blood Count 3.95 M/mm3 (4.6-6.2); White Blood Count 7.4 K/mm3 (4.4-11.0)
[2017-07-23 23:11] LABS: Color, Urine Yellow (Yellow); Differential Indicated SCAN CRITERIA MET; Glucose, Dipstick Normal (Normal); Ketone-Dipstick 50 mg/dl (Negative); Leukocyte Esterase-Dipstick Negative /ul (Negative); Nitrite-Dipstick Negative (Negative); Occult Blood-Urine 10 /ul (Negative); POSITIVE COUNT NO; POSITIVE DIFFERENTIAL YES; POSITIVE MORPHOLOGY NO; Protein-Dipstick 30 mg/dl (Negative); Urine Clarity Clear (Clear); Urine Urobilinogen 1 mg/dl (Normal)
[2017-07-23 23:16] LABS: International Normalized Ratio 1.1; Prothrombin Time (Protime)PT. 14.4 SECONDS (11.7-14.9)
[2017-07-23 23:17] LABS: Partial Thromboplast Time 33.2 Seconds (24.1-36.2)
[2017-07-23 23:20] LABS: Urine Bilirubin Dipstick 1 mg/dL (Negative)
[2017-07-23 23:21] LABS: Mucous, Urine RARE /hpf (<or=2+)
[2017-07-23 23:23] LABS: Differential Comment SCANNED
[2017-07-23 23:27] LABS: ALB/GLOB Ratio 0.6 RATIO (0.9-2.4); AST(SGOT) 47 U/L (15-37); Alanine Aminotransfer ALT/SGPT 18 U/L (16-61); Albumin, Serum 3.1 g/dL (3.2-5.0); Alkaline Phosphatase 126 U/L (45-117); Anion Gap 10 (5-15); BUN 22 mg/dL (7-18); BUN/Creat Ratio 25.5 RATIO (10-20); Calcium,Total 9.4 mg/dL (8.5-10.1); Chloride 89 mmol/L (98-107); Creatinine, Serum 0.86 mg/dL (0.70-1.30); EST Glomerular Filtration Rate 96 mL/min (>60); Est Glom Filt Rate - Afr Amer 117 mL/min (>60); Estimated Creatinine Clearance 96.11 ml/min; Globulin 4.9 g/dL (2.2-4.2); Glucose 121 mg/dL (74-106); Potassium 4.1 mmol/L (3.5-5.1); Sodium Level 128 mmol/L (136-145)
[2017-07-23 23:37] VITALS: PULSE 94; RESP 20; TEMP 36.7; O2SAT 98
[2017-07-23 23:37] LABS: Lactic Acid 1.9 mmol/L (0.4-2.0)
[2017-07-24] VITALS (14 sets, daily range): BP systolic 95–112; BP diastolic 61–80; PULSE 80–108; RESP 16–24; TEMP 35–37.4; O2SAT 92–99; BMI 17.5
[2017-07-24] MEDS: levoFLOXacin IV 750 MG/150 ML BAG 100 MG IV (00:12)
[2017-07-24] MEDS: oxyCODONE Soln 5 MG/0.25 ML PO.SYRINGE PO (01:13)
[2017-07-24] MEDS: Gabapentin 300 MG Capsule PO ×3 (01:13→18:45)
--- NOTE | 2017-07-24 01:59 | PCM.HP.STD ---
Problem List (1) Gram-negative pneumonia Status: Acute History of Present Illness Date of Admission: 07/24/17 Chief Complaint: shortness of breath The patient is a 57 year old M who presents with shortness of breath. Patient had a chest x-ray showed worsening right lower lobe infiltrate. Patient received cefepime and vancomycin in the. Patient was coughing up some brown sputum. Patient has stage IV GE junction cancer. Patient has exhausted chemotherapy and is not a candidate for immunotherapy. Patient is currently seeing some holistic physician who has him on a coffee of medications as well as diet. Patient had some labs [place] and were told that his cancer stop metastasizing. I asked the patient's how they were able to tolerate based on the lab work without doing any kind of biopsies were additional imaging she had no answer. 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) Chronic back pain (Chronic) Allergies aspirin Allergy (Verified 07/23/17 21:20) Unknown Penicillins Allergy (Verified 07/23/17 21:20) Rash STEROIDS Adverse Reaction (Uncoded 06/12/17 16:56) Pt is not to have d/t alternative cancer therapy Home Medications: Ambulatory Orders Medication Instructions Recorded Loratadine [Claritin] 10 mg PO DAILY PRN 08/10/15 Biocellular 2 cap PO TIDCM 06/12/17 D3k2 2 each PO BID 06/12/17 Ling Harinder 2 each PO BID 06/12/17 Macrophage 0.4 units SQ DAILY 06/12/17 Macrophage [place] 0.5 units INHALATION DAILY 06/12/17 Oxycodone HCl 10 mg SL Q4H PRN PRN 06/12/17 Performance 2 cap PO TIDCM 06/12/17 Rivaroxaban [Xarelto] 20 mg PO DAILY 06/12/17 Sea Extract 15 drop PO BID 06/12/17 Ultra Pro 2 cap PO TID 06/12/17 Guaifenesin [Mucinex] 1,200 mg PO BID PRN PRN 07/23/17 Methadone HCl [Methadose] 10 mg PO BID 07/23/17 Surgical History: - - Esophagectomy with gastric pull-up Lives: Spouse/ Significant Other Smoking Status: Former smoker Tobacco Use: Non-smoker Alcohol: None Review of Systems Constitutional: Reports: Anorexia. Denies: Chills, Fever Eyes: Denies: Blurred vision, Double vision HEENT: Denies: Head Aches, Sinus Congestion, Sinus Drainage Cardiovascular: Denies: Chest Pain, Palpitations Respiratory: Reports: Cough, Shortness of Breath, Sputum production Gastrointestinal: Denies: Abdominal Pain, Nausea, Vomiting Genitourinary: Denies: Dysuria Musculoskeletal: Reports: Back Pain. Denies: Arm Pain Skin: Denies: Rash, Wounds Neurological: Denies: Numbness, Tingling, Focal weakness Psychiatric: Denies: Anxiety, Depression Hematologic/ Lymphatic: Denies: Easy Bruising, Easy Bleeding, Hx of blood clot VTE Information - Inpt Only VTE Present on Admission: No VTE Pharm Prophylaxis ordered?: Yes Patient Problems: Active and Suspected Problems Gram-negative pneumonia (Acute) - Physical Exam General: Alert, Cooperative, No apparent distress, - - Cachectic. Afebrile. HEENT: Atraumatic, Normocephalic Oral: Moist Mucosa, No Gingival or Mucosal Lesions/ Ulcerations Neck: No Nodes, Thyroid Normal Size and Texture Lungs: - - Crackles right lower lobe Cardiovascular: Regular rate, Regular Rhythm, Normal S1, Normal S2 Abdomen: Bowel Sounds Present, Soft, Non Tender, Non-Distended, No Hepato-splenomegaly Extremities: No edema, No Calf Tenderness Skin: No rashes, No breakdown Musculoskeletal: Cachexia, Muscle Wasting Psych/Mental Status: Anxious, Flat Affect Vital Signs Temp Pulse Resp BP Pulse Ox 36.7 C 94 20 H 110/59 L 98 07/23/17 23:37 07/23/17 23:37 07/23/17 23:37 07/23/17 21:24 07/23/17 23:37 Oxygen Flow Rate (L/min) 2 Oxygen Delivery Method Nasal Cannula Weight: 72.575 kg Body Mass Index (BMI) 21.1 Laboratory Tests Past 24 Hrs 07/23/17 07/23/17 07/23/17 22:50 22:50 22:50 WBC 7.4 RBC 3.95 L Hgb 12.0 L Hct 35.7 L MCV 90.4 MCH 30.4 MCHC 33.6 RDW 13.8 RDW Differential 45.4 H Plt Count 244 MPV 9.7 Immature Gran % (Auto) 0.100 Neut % (Auto) 90.1 H Lymph % (Auto) 3.8 L [place] % (Auto) 5.2 Eos % (Auto) 0.7 Baso % (Auto) 0.1 Absolute Neuts (auto) 6.6 Absolute Lymphs (auto) 0.28 L Total Counted Not Reportable Differential Comment SCANNED PT 14.4 INR 1.1 APTT 33.2 Sodium 128 L Potassium 4.1 Chloride 89 L Carbon Dioxide 29.0 Anion Gap 10 BUN 22 H Creatinine 0.86 Estim Creat Clear Calc 96.11 Est GFR (MDRD) Af Amer 117 Est GFR (MDRD) Non-Af 96 BUN/Creatinine Ratio 25.5 H Glucose 121 H Lactic Acid Calcium 9.4 Total Bilirubin 0.50 AST 47 H ALT 18 Alkaline Phosphatase 126 H Troponin I < 0.015 Total Protein 8.0 Albumin 3.1 L Globulin 4.9 H Albumin/Globulin Ratio 0.6 L Urine Color Urine Clarity Urine pH Ur Specific [place] Urine Protein Urine Glucose (UA) Urine Ketones Urine Occult Blood Urine Nitrite Urine Bilirubin Urine Urobilinogen Ur Leukocyte Esterase Urine RBC Urine WBC Ur Squamous Epith Cells Urine Bacteria Urine Mucus 07/23/17 07/23/17 22:50 22:50 WBC RBC Hgb Hct MCV MCH MCHC RDW RDW Differential Plt Count MPV Immature Gran % (Auto) Neut % (Auto) Lymph % (Auto) [place] % (Auto) Eos % (Auto) Baso % (Auto) Absolute Neuts (auto) Absolute Lymphs (auto) Total Counted Differential Comment PT INR APTT Sodium Potassium Chloride Carbon Dioxide Anion Gap BUN Creatinine Estim Creat Clear Calc Est GFR (MDRD) Af Amer Est GFR (MDRD) Non-Af BUN/Creatinine Ratio Glucose Lactic Acid 1.9 Calcium Total Bilirubin AST ALT Alkaline Phosphatase Troponin I Total Protein Albumin Globulin Albumin/Globulin Ratio Urine Color Yellow Urine Clarity Clear Urine pH 6.0 Ur Specific [place] 1.020 Urine Protein 30 H Urine Glucose (UA) Normal Urine Ketones 50 H Urine Occult Blood 10 H Urine Nitrite Negative Urine Bilirubin 1 H Urine Urobilinogen 1 H Ur Leukocyte Esterase Negative Urine RBC 0 SEEN Urine WBC 0 SEEN Ur Squamous Epith Cells 0 SEEN Urine Bacteria 0 SEEN Urine Mucus RARE Clinical Impression(s) from Imaging Studies Chest X-Ray 07/23/17 22:37 IMPRESSION: Right lower lung infiltrate. Right effusion. Electronically Signed: Jatin Reynolds DO at 23:46 EDT , Service support , Abdomen X-Ray 07/23/17 22:38 IMPRESSION: Normal x-ray examination of the abdomen and pelvis. Electronically Signed: Jatin Reynolds DO at 23:42 EDT , Service support , Assessment/Plan All Active Problems Aspiration pneumonia (Acute) Hypotension (Acute) Gram-negative pneumonia (Acute) 1. Suspected gram-negative pneumonia Patient was just hospitalized in June for aspiration pneumonia. We will treat the patient empirically with broad-spectrum coverage with meropenem and vancomycin for now. Pulmonary toilet 2. Stage IV GE junction tumor Patient is no longer candidate for further chemotherapy as his cancer has been refractory to that. Patient is not a candidate for immunotherapy as well. Patient is currently going to a holistic doctor and getting some test that allegedly confirm that his cancer is not metastasizing. A do not know how that is possible without doing a biopsy and unfortunately I feel that this may be instilling. With patient and his presumably this is all out of pocket expenses. 3. DVT prophylaxis: Patient is anticoagulated 4. Advanced care planning: I spent 30 minutes discussing the patient is outside of the history and physical in regards to goals of care, poor prognosis. Patient wishes to be full code but I did recommend that he speak with palliative care to help with symptoms. He does not wish to do so at this time. I did inform them that part of care would be an appropriate go between the transitioned eventually over the hospice but is not interested at this time. Code Visit Inpatient E&M: 02703 Init Hosp L2 Procedures: 88996 Advncd Care Plan 30 Min
--- NOTE | 2017-07-24 02:04 | HP.PCM_ITS ---
Problem List (1) Gram-negative pneumonia Status: Acute History of Present Illness Date of Admission: 07/24/17 Chief Complaint: shortness of breath The patient is a 57 year old M who presents with shortness of breath. Patient had a chest x-ray showed worsening right lower lobe infiltrate. Patient received cefepime and vancomycin in the. Patient was coughing up some brown sputum. Patient has stage IV GE junction cancer. Patient has exhausted chemotherapy and is not a candidate for immunotherapy. Patient is currently seeing some holistic physician who has him on a coffee of medications as well as diet. Patient had [place] and were told that his cancer stop metastasizing. I asked the patient's how they were able to tolerate based on the lab work without doing any kind of biopsies were additional imaging she had no answer. 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) Chronic back pain (Chronic) Allergies aspirin Allergy (Verified 07/23/17 21:20) Unknown Penicillins Allergy (Verified 07/23/17 21:20) Rash STEROIDS Adverse Reaction (Uncoded 06/12/17 16:56) Pt is not to have d/t alternative cancer therapy Home Medications: Ambulatory Orders Medication Instructions Recorded Loratadine [Claritin] 10 mg PO DAILY PRN 08/10/15 Biocellular 2 cap PO TIDCM 06/12/17 D3k2 2 each PO BID 06/12/17 Ling Harinder 2 each PO BID 06/12/17 Macrophage 0.4 units SQ DAILY 06/12/17 Macrophage [place] 0.5 units INHALATION DAILY 06/12/17 Oxycodone HCl 10 mg SL Q4H PRN PRN 06/12/17 Performance 2 cap PO TIDCM 06/12/17 Rivaroxaban [Xarelto] 20 mg PO DAILY 06/12/17 Sea Extract 15 drop PO BID 06/12/17 Ultra Pro 2 cap PO TID 06/12/17 Guaifenesin [Mucinex] 1,200 mg PO BID PRN PRN 07/23/17 Methadone HCl [Methadose] 10 mg PO BID 07/23/17 Surgical History: - - Esophagectomy with gastric pull-up Lives: Spouse/ Significant Other Smoking Status: Former smoker Tobacco Use: Non-smoker Alcohol: None Review of Systems Constitutional: Reports: Anorexia. Denies: Chills, Fever Eyes: Denies: Blurred vision, Double vision HEENT: Denies: Head Aches, Sinus Congestion, Sinus Drainage Cardiovascular: Denies: Chest Pain, Palpitations Respiratory: Reports: Cough, Shortness of Breath, Sputum production Gastrointestinal: Denies: Abdominal Pain, Nausea, Vomiting Genitourinary: Denies: Dysuria Musculoskeletal: Reports: Back Pain. Denies: Arm Pain Skin: Denies: Rash, Wounds Neurological: Denies: Numbness, Tingling, Focal weakness Psychiatric: Denies: Anxiety, Depression Hematologic/ Lymphatic: Denies: Easy Bruising, Easy Bleeding, Hx of blood clot VTE Information - Inpt Only VTE Present on Admission: No VTE Pharm Prophylaxis ordered?: Yes Patient Problems: Active and Suspected Problems Gram-negative pneumonia (Acute) - Physical Exam General: Alert, Cooperative, No apparent distress, - - Cachectic. Afebrile. HEENT: Atraumatic, Normocephalic Oral: Moist Mucosa, No Gingival or Mucosal Lesions/ Ulcerations Neck: No Nodes, Thyroid Normal Size and Texture Lungs: - - Crackles right lower lobe Cardiovascular: Regular rate, Regular Rhythm, Normal S1, Normal S2 Abdomen: Bowel Sounds Present, Soft, Non Tender, Non-Distended, No Hepato- splenomegaly Extremities: No edema, No Calf Tenderness Skin: No rashes, No breakdown Musculoskeletal: Cachexia, Muscle Wasting Psych/Mental Status: Anxious, Flat Affect Vital Signs Temp Pulse Resp BP Pulse Ox 36.7 C 94 20 H 110/59 L 98 07/23/17 23:37 07/23/17 23:37 07/23/17 23:37 07/23/17 21:24 07/23/17 23:37 Oxygen Flow Rate (L/min) 2 Oxygen Delivery Method Nasal Cannula Weight: 72.575 kg Body Mass Index (BMI) 21.1 Laboratory Tests Past 24 Hrs 07/23/17 07/23/17 07/23/17 22:50 22:50 22:50 WBC 7.4 RBC 3.95 L Hgb 12.0 L Hct 35.7 L MCV 90.4 MCH 30.4 MCHC 33.6 RDW 13.8 RDW Differential 45.4 H Plt Count 244 MPV 9.7 Immature Gran % (Auto) 0.100 Neut % (Auto) 90.1 H Lymph % (Auto) 3.8 L [place] % (Auto) 5.2 Eos % (Auto) 0.7 Baso % (Auto) 0.1 Absolute Neuts (auto) 6.6 Absolute Lymphs (auto) 0.28 L Total Counted Not Reportable Differential Comment SCANNED PT 14.4 INR 1.1 APTT 33.2 Sodium 128 L Potassium 4.1 Chloride 89 L Carbon Dioxide 29.0 Anion Gap 10 BUN 22 H Creatinine 0.86 Estim Creat Clear Calc 96.11 Est GFR (MDRD) Af Amer 117 Est GFR (MDRD) Non-Af 96 BUN/Creatinine Ratio 25.5 H Glucose 121 H Lactic Acid Calcium 9.4 Total Bilirubin 0.50 AST 47 H ALT 18 Alkaline Phosphatase 126 H Troponin I < 0.015 Total Protein 8.0 Albumin 3.1 L Globulin 4.9 H Albumin/Globulin Ratio 0.6 L Urine Color Urine Clarity Urine pH Ur Specific [place] Urine Protein Urine Glucose (UA) Urine Ketones Urine Occult Blood Urine Nitrite Urine Bilirubin Urine Urobilinogen Ur Leukocyte Esterase Urine RBC Urine WBC Ur Squamous Epith Cells Urine Bacteria Urine Mucus 07/23/17 07/23/17 22:50 22:50 WBC RBC Hgb Hct MCV MCH MCHC RDW RDW Differential Plt Count MPV Immature Gran % (Auto) Neut % (Auto) Lymph % (Auto) [place] % (Auto) Eos % (Auto) Baso % (Auto) Absolute Neuts (auto) Absolute Lymphs (auto) Total Counted Differential Comment PT INR APTT Sodium Potassium Chloride Carbon Dioxide Anion Gap BUN Creatinine Estim Creat Clear Calc Est GFR (MDRD) Af Amer Est GFR (MDRD) Non-Af BUN/Creatinine Ratio Glucose Lactic Acid 1.9 Calcium Total Bilirubin AST ALT Alkaline Phosphatase Troponin I Total Protein Albumin Globulin Albumin/Globulin Ratio Urine Color Yellow Urine Clarity Clear Urine pH 6.0 Ur Specific [place] 1.020 Urine Protein 30 H Urine Glucose (UA) Normal Urine Ketones 50 H Urine Occult Blood 10 H Urine Nitrite Negative Urine Bilirubin 1 H Urine Urobilinogen 1 H Ur Leukocyte Esterase Negative Urine RBC 0 SEEN Urine WBC 0 SEEN Ur Squamous Epith Cells 0 SEEN Urine Bacteria 0 SEEN Urine Mucus RARE Clinical Impression(s) from Imaging Studies Chest X-Ray 07/23/17 22:37 IMPRESSION: Right lower lung infiltrate. Right effusion. Electronically Signed: Jatin Reynolds DO at 23:46 EDT , Service support , Abdomen X-Ray 07/23/17 22:38 IMPRESSION: Normal x-ray examination of the abdomen and pelvis. Electronically Signed: Jatin Reynolds DO at 23:42 EDT , Service support , Assessment/Plan All Active Problems Aspiration pneumonia (Acute) Hypotension (Acute) Gram-negative pneumonia (Acute) 1. Suspected gram-negative pneumonia * Patient was just hospitalized in June for aspiration pneumonia. We will treat the patient empirically with broad-spectrum coverage with meropenem and vancomycin for now. * Pulmonary toilet 2. Stage IV GE junction tumor * Patient is no longer candidate for further chemotherapy as his cancer has been refractory to that. Patient is not a candidate for immunotherapy as well. * Patient is currently going to a holistic doctor and getting some test that allegedly confirm that his cancer is not metastasizing. A do not know how that is possible without doing a biopsy and unfortunately I feel that this may be instilling. With patient and his presumably this is all out of pocket expenses. 3. DVT prophylaxis: Patient is anticoagulated 4. Advanced care planning: I spent 30 minutes discussing the patient is outside of the history and physical in regards to goals of care, poor prognosis. Patient wishes to be full code but I did recommend that he speak with palliative care to help with symptoms. He does not wish to do so at this time. I did inform them that part of care would be an appropriate go between the transitioned eventually over the hospice but is not interested at this time. Code Visit Inpatient E&M: 10191 Init Hosp L2 Procedures: 79141 Advncd Care Plan 30 Min
[2017-07-24] MEDS: 0.9% Normal Saline 1,000 ML 125 ML IV (03:30)
--- NOTE | 2017-07-24 03:40 | PHA.PHARE_ITS ---
Consult Pharmacy has been consulted to manage selected antiobiotic: Vancomycin Type of Consult: New start Suspected Infection: Pneumonia Prior Doses of Antibiotics Received/Current Regimen: Medications Vancomycin HCl 1,250 mg/ (Sodium Chloride) 275 mls @ 183.333 mls/hr IV Q12H CONG Discontinued Medications Vancomycin HCl 1,500 mg/ (Dextrose) 530 mls @ 250 mls/hr IV x ONE Stop: 07/24/17 01:37 Last Admin: 07/23/17 23:50 Dose: 250 mls/hr Labs: Sodium 128 mmol/L (136-145) L 07/23/17 22:50 Potassium 4.1 mmol/L (3.5-5.1) 07/23/17 22:50 Chloride 89 mmol/L (98-107) L 07/23/17 22:50 Carbon Dioxide 29.0 mmol/L (21.0-32.0) 07/23/17 22:50 Anion Gap 10 (5-15) 07/23/17 22:50 BUN 22 mg/dL (7-18) H 07/23/17 22:50 Creatinine 0.86 mg/dL (0.70-1.30) 07/23/17 22:50 Est GFR (MDRD) Af Amer 117 mL/min (>60) 07/23/17 22:50 Est GFR (MDRD) Non-Af 96 mL/min (>60) 07/23/17 22:50 BUN/Creatinine Ratio 25.5 RATIO (10-20) H 07/23/17 22:50 Glucose 121 mg/dL (74-106) H 07/23/17 22:50 Weight used for dosin kg Estimated Creatinine Clearance: 96 Goal Trough: 15-20 mcg/mL Pharmacy Plan for Drug Dosing: Pharmacy Service will continue to monitor and adjust dosing as required. Follow-Up Labs: Trough Vancomycin Labs to be done on [date and time ordered]: 07/25/17 @1133
[2017-07-24] MEDS: oxyCODONE Soln 5 MG/0.25 ML PO.SYRINGE SL ×5 (05:10→22:14)
[2017-07-24 06:49] LABS: Anion Gap 8 (5-15); BUN 18 mg/dL (7-18); BUN/Creat Ratio 23.9 RATIO (10-20); Calcium,Total 8.5 mg/dL (8.5-10.1); Chloride 93 mmol/L (98-107); Creatinine, Serum 0.75 mg/dL (0.70-1.30); EST Glomerular Filtration Rate 113 mL/min (>60); Est Glom Filt Rate - Afr Amer 137 mL/min (>60); Estimated Creatinine Clearance 91.11 ml/min; Glucose 96 mg/dL (74-106); Potassium 3.6 mmol/L (3.5-5.1); Sodium Level 129 mmol/L (136-145)
[2017-07-24 07:01] LABS: Absolute Lymphocyte Count 0.23 X10^3/ul (0.83-4.51); Absolute Neutrophil Count 5.1 X10^3/uL (2.0-7.7); Basophil# 0.01 X10^3/uL; Basophil% 0.2 % (0-1); Eosinophil# 0.04 X10^3/uL; Eosinophils% 0.7 % (0-5); Hematocrit 32.4 % (40-54); Hemoglobin 10.9 g/dl (13.0-16.5); Lymphocyte # 0.23 X10^3/ul (4.0); Lymphocyte % 3.8 % (19-41); Mean Corp Hgb Conc 33.6 g/gl (32-36); Mean Corpuscular Hgb 30.7 pg (27.0-32.0); Mean Corpuscular Volume 91.3 fL (80-94); Mean Platelet Vol. 9.4 fl (6.2-12.0); Monocyte# 0.58 X10^3/uL; Monocyte% 9.7 % (0-10); Neutrophil # 5.14 X10^3/uL (2.7-7.7); Neutrophil % 85.4 % (47-70); Platelet Count 205 K/mm3 (150-450); RBC Distribution Width CV 13.5 % (11.6-14.6); Red Blood Count 3.55 M/mm3 (4.6-6.2)
[2017-07-24 07:15] LABS: Differential Indicated SCAN CRITERIA MET; POSITIVE COUNT NO; POSITIVE DIFFERENTIAL YES; POSITIVE MORPHOLOGY NO
[2017-07-24 07:18] LABS: Differential Comment SCANNED
[2017-07-24] MEDS: Rivaroxaban 20 MG Tablet PO (07:38)
[2017-07-24] MEDS: Ipratropium/Albuterol Sulfate 3 ML AMPUL.NEB INHALATION ×5 (08:04→22:31)
[2017-07-24] MEDS: Bisacodyl 10 MG Suppository RECTAL (10:22)
--- NOTE | 2017-07-24 10:53 | CASEMGMT ---
CRISTINA CHRISTENSEN Face to Face with patient for initial transition planning/care coordination assessment. RN AMPARO introduced self and role at [facility]. Patient sitting in bed, alert and oriented. Patient willing to participate in assessment and is able to answer all questions appropriately. Care providers, pharmacy, and demographics verified. See link attached. Patient wishes to discharge home, denies need for home health at this time. Patient states he has no further needs or concerns at this time. CM to follow for discharge planning needs that may arise. Disposition Plan: Patient to discharge home with family support and follow-up plans in place. Will monitor for need for additional home oxygen.
[2017-07-24] MEDS: Methadone 10 MG Tablet PO (11:48)
--- NOTE | 2017-07-24 12:42 | ONC.CON.INP2 ---
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 Was empirically started in PPI. Symptoms however progressed and he was referred for EGD. ?? EGD 07/03/2015: large, fungating mass with no bleeding and with no stigmata of recent bleeding was found in the lower third of the esophagus. The mass was partially obstructing. Biopsies were taken with a cold forceps for histology. Estimated blood loss: none. This was at 42 cm. The scope could not pass through and no lumin was seen. No dilation done. ?? Pathology: Distal esophagus, biopsy - At least intramucosal adenocarcinoma, focally present beneath squamous epithelium. ?? CT C/A/P 07/05/2015: CT CHEST FINDINGS: Lung findings: No evidence of noncalcified nodules, infiltrates or pleural effusions. Heart: Normal in size. Some thickening of the lower esophageal wall noted. Mediastinal and hilar findings: No enlarged lymph nodes in the mediastinum or hilar regions. Lymph nodes: No enlarged axillary or supraclavicular nodes are seen. Bony structures: No significant abnormalities identified. CT ABDOMEN FINDINGS: Liver: Liver texture unremarkable. No focal masses. Biliary tree: Common duct normal in size. No intrahepatic bile duct dilatation is seen. Pancreas: Unremarkable Spleen: Spleen normal size. No focal masses. Adrenals: Normal size. Kidneys: Are seen to function bilaterally. No focal abnormalities. Lymph nodes: No enlarged lymph nodes are seen. Retroperitoneum: The aorta is normal in size. Otherwise unremarkable. CT PELVIS FINDINGS: Lymph Nodes: No enlarged lymph nodes. Urinary bladder: Urinary bladder wall mildly thickened. ?? Underwent EGD/EUS. On EGD scope was passed into the stomach. EUS, the scope was not able to be passed into the stomach. Ultrasound revealed one perigastric lymph node. Otherwise the tumor was noted to extend into the cardia and invade to the adventitial layer. ?? PET scan revealed one isolated lymph node metastasis to the left of midline perigastric area most likely corresponding with the node seen on ultrasound. ?? Previous therapy: 1) FOLFOX (CASE 6213 clinical trial). 2) Surgery on 11/09/2015. 3) Adjuvant chemo/radiation with carbo/paciltaxel. 4) ECX- partial response with stable lesion in the liver. 5) Herceptin/cisplatin &?capcitabine. 6) Palliative radiation to upper mediastinum. ?? He underwent a CT-guided biopsy of the liver lesion at [facility]. 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 ? Was diagnosed with extensive DVT of the left arm. He was started on Lovenox. Patient had declined further conventional therapy and pursue holistic medication. I last saw him when he was admitted in early June to this hospital. He has continued taking holistic treatments. He thinks the treatment is working because he has been told that blood work is showing that the cancer has been responding. He presented to the emergency room last night after developing another bout of aspiration. He had antoni down after eating and fell asleep for a little bit.typically he doesn't get recombinant and he's been very vigilant about sitting up particularly after eating. However he awoke an hour or so later after aspirating. He developed increasing cough and worsening shortness of breath and therefore presented to the emergency room. He's been afebrile since presentation. Blood pressure is been doing well. Currently saturating 94% on 3 L/m. He continues to have intractable left lower back pain. Workup previously has not revealed evidence of metastases to this area. He's been seeing Dr. Vance on a regular basis. He continues on Xarelto for history of DVT. He's not had any unusual bleeding or unexplained bruising. Past Medical History: Chronic Problems Metastasis from esophageal cancer (Chronic) Chronic back pain (Chronic) Past Medical/Surgical History: Past Medical History - Most Recent Inpatient Visit Past Medical History Start: 07/24/17 03:09 Text: Status: Complete Freq: ONCE Protocol: Document 07/24/17 03:09 [facility] (Rec: 07/24/17 03:32 [facility] [id number]) BMI Required to complete PMH What is Patient's BMI 17.5 Past Medical History Unable History Recalled Yes Query Text:Pt Unable/Family Not Present Neurologic Medical History Hx Stroke/TIA No Hx Dementia/Alzheimer's No Hx Parkinson's Disease No Hx Seizures No Hx Multiple Sclerosis No Hx Migraines No Cardiac Medical History VTE Present on Admission No Hx of Deep Vein Thrombosis/VTE/PE Yes Hx Hypertension Yes Hx Chest Pain/Angina No Hx Heart Attack No Hx Cardiac Surgery/Stents/Etc. No Hx Heart Failure No Hx Pacemaker/AICD No Hx Irregular Heartbeat and/or Afib No Hx Anticoagulant Therapy Yes: xarelto Query Text:(Coumadin, Aspirin, Plavix, Xarelto, etc.) Hx Pain in Legs when Walking/Leg Cramps No Respiratory Medical History Hx COPD No Hx Emphysema No Hx Smoking Yes: 1 PPD FOR 3-5 YRS Smoking Status Former smoker Tobacco Use Non-smoker Hx Tobacco Use in last 12 months No Hx Sleep Apnea No Do you snore loudly (louder than talking No or can be heard through closed doors)? Do you often feel tired/ fatigued/ No sleepy during daytime? Has anyone observed you stop breathing No during sleep? STOP Results Negative GI Medical History Hx Ulcer No Hx Hepatitis No Hx Cirrhosis No Hx GI Bleed No Hx Unplanned Weight Loss Yes Genitourinary Medical History Indwelling Catheter in Place on Arrival/ No Admission Hx Renal Disease No: KIDNEY STONE IN THE PAST NO SURGERY, fluid around kidney reportedly Hx Dialysis No Musculoskeletal History Hx Arthritis Yes Hx Rheumatoid Arthritis No Endocrine Medical History Hx Diabetes No Hx Thyroid Disease No Hematologic Medical History Hx of Blood Transfusion No Hx of Transfusion in last 3 Months No Ever experience any problems with No transfusion(s)? Hx of Preganancy in last 3 Months N/A Nurse Filling Out Transfusion & SROBERTSO Questions: Date: 07/24/17 Time: 03:32 Psycho/Social Medical History Hx Depression No Hx Anxiety No Hx Behavior Disorder No Hx Alcohol Use No: in the past Hx Substance Use No Other Medical History Hx Blood Disorders No Hx Anemia No Hx Cancer Yes: ESPHOGEAL CA, LIVER CA Hx Drug Resistant Organism No Wound/Pressure Injury Present on Arrival No /Admission Query Text:If yes, chart assessment in Shift/Clinical Findings Central Line/PICC/VAD Present on Arrival No /Admission Antibiotics within last 7 days? No Risk for Readmission Number of Risk Factors 3 At Risk for Readmission Patient is At Risk For Readmission Patient is eligible for Call Back Y - Social History Lives: Spouse/ Significant Other Smoking Status: Former smoker Tobacco Use: Non-smoker Alcohol: None Allergies/Adverse Reactions: Allergy/AdvReac Type Severity Reaction Status Date / Time aspirin Allergy Unknown Verified 07/23/17 21:20 Penicillins Allergy Rash Verified 07/23/17 21:20 STEROIDS AdvReac Pt is not Uncoded 06/12/17 16:56 to have d/t alternative cancer therapy Review of Systems Constitutional:: Reports: Weakness, Fatigue, Weight loss Respiratory: Reports: Cough, Shortness of breath at rest, Shortness of breath upon exertion, Sputum production Musculoskeletal:: Reports: - - Decrease in muscle mass. Vital Signs Height 1.85 m Weight: 60 kg Weight in Pounds 132.3 lbs Pulse Ox 94 Temperature 99.1 F Pulse Rate 80 Respiratory Rate 16 Blood Pressure 106/79 Blood Pressure Position Semi-Fowlers - Physical Exam General: Alert, - - Thinner Neck:: Supple, - - No adenopathy. Cardiac:: Regular rhythm Lungs: - - Diminished air entry but no coarse rhonchi or wheez currently. Abdomen:: - - There are new palpable tumors along the previous surgical incision site on the anterior abdominal wall. They're not tender. Laboratory Data: Laboratory Tests 07/24/17 07/24/17 Range/Units 06:00 06:00 WBC 6.0 (4.4-11.0) K/mm3 RBC 3.55 L (4.6-6.2) M/mm3 Hgb 10.9 L (13.0-16.5) g/dl Hct 32.4 L (40-54) % MCV 91.3 (80-94) fL MCH 30.7 (27.0-32.0) pg MCHC 33.6 (32-36) g/gl RDW 13.5 (11.6-14.6) % RDW Differential 44.0 H (35.1-43.9) fl Plt Count 205 (150-450) K/mm3 MPV 9.4 (6.2-12.0) fl Immature Gran % (Auto) 0.200 (0.0-0.9) % Neut % (Auto) 85.4 H (47-70) % Lymph % (Auto) 3.8 L (19-41) % [place] % (Auto) 9.7 (0-10) % Eos % (Auto) 0.7 (0-5) % Baso % (Auto) 0.2 (0-1) % Absolute Neuts (auto) 5.1 (2.0-7.7) X10^3/uL Absolute Lymphs (auto) 0.23 L (0.83-4.51) X10^3/ul Total Counted Not Reportable Differential Comment SCANNED Sodium 129 L (136-145) mmol/L Potassium 3.6 (3.5-5.1) mmol/L Chloride 93 L (98-107) mmol/L Carbon Dioxide 28.0 (21.0-32.0) mmol/L Anion Gap 8 (5-15) BUN 18 (7-18) mg/dL Creatinine 0.75 (0.70-1.30) mg/dL Estim Creat Clear Calc 91.11 ml/min Est GFR (MDRD) Af Amer 137 (>60) mL/min Est GFR (MDRD) Non-Af 113 (>60) mL/min BUN/Creatinine Ratio 23.9 H (10-20) RATIO Glucose 96 (74-106) mg/dL Calcium 8.5 (8.5-10.1) mg/dL Diagnostic Data: Diagnostic Data Chest X-Ray 07/23/17 22:37 IMPRESSION: Right lower lung infiltrate. Right effusion. Electronically Signed: Jatin Reynolds, DO at 23:46 EDT , Service support , Abdomen X-Ray 07/23/17 22:38 IMPRESSION: Normal x-ray examination of the abdomen and pelvis. 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 -He has been rather vigilant about staying upright particularly after eating. -Discussed with him today that we could look into an ENT evaluation for possible tracheostomy to protect the airway. He would like to hold off on this until he has his scheduled CT scans upcoming in about another 2 weeks. Plan: -Continue supplemental oxygen. -Thickened liquids. -Continue antibiotics for now. -Evaluation for home O2. -Outpatient ENT evaluation for possible tracheostomy. 2) Metastatic adenocarcinoma the GE junction. Assessment: -KPS is 30-40%. -Patient is not mentally ready for hospice care. -He is not a candidate for any further cytotoxic chemotherapy. -Tumor testing showed it to be mismatch repair profession suggesting no role for immunotherapy. Plan: -I will continue discussions with him in the outpatient setting regarding end-of-life care. Medications: Prescriptions This Visit Medication Instructions Recorded Guaifenesin [Mucinex] 1,200 mg PO BID PRN PRN 07/23/17 Methadone HCl [Methadose] 10 mg PO BID 07/23/17 Naldemedine Tosylate [Symproic] 0.2 mg PO 07/24/17 levoFLOXacin tablet [Levaquin 07/24/17 tablet] Medications Added to Medication List This Visit Category Date Time Status Bisacodyl [Dulcolax] Med 07/24/17 09:23 Active 10 mg RECTAL BID PRN Gabapentin [Neurontin] Med 07/24/17 06:00 Active 300 mg PO BID@0600,1800 Ipratropium/Albuterol Sulfate [Duoneb] Med 07/24/17 06:00 Active 3 ml INHALATION Q4H.RT Meropenem [Merrem] 500 mg Med 07/24/17 06:00 Active 0.9% Normal Saline 50 ml IV Q6 Methadone HCl Med 07/24/17 12:00 Active 10 mg PO BID@0000,1200 Naldemedine Tosylate [Symproic] Med 07/24/17 10:00 Pending 0.2 mg PO DAILY Oxycodone Soln [Oxyfast] Med 07/24/17 04:52 Active 5 mg SL Q4H PRN PRN Vancomycin 1,250 mg Med 07/24/17 12:00 Active 0.9% Normal Saline 250 ml IV Q12H Primary Care Provider: Yuriy Franz Referring Provider:
--- NOTE | 2017-07-24 12:54 | CON.PCM_ITS ---
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 Was empirically started in PPI. Symptoms however progressed and he was referred for EGD. ?? EGD 07/03/2015: large, fungating mass with no bleeding and with no stigmata of recent bleeding was found in the lower third of the esophagus. The mass was partially obstructing. Biopsies were taken with a cold forceps for histology. Estimated blood loss: none. This was at 42 cm. The scope could not pass through and no lumin was seen. No dilation done. ?? Pathology: Distal esophagus, biopsy - At least intramucosal adenocarcinoma, focally present beneath squamous epithelium. ?? CT C/A/P 07/05/2015: CT CHEST FINDINGS: Lung findings: No evidence of noncalcified nodules, infiltrates or pleural effusions. Heart: Normal in size. Some thickening of the lower esophageal wall noted. Mediastinal and hilar findings: No enlarged lymph nodes in the mediastinum or hilar regions. Lymph nodes: No enlarged axillary or supraclavicular nodes are seen. Bony structures: No significant abnormalities identified. CT ABDOMEN FINDINGS: Liver: Liver texture unremarkable. No focal masses. Biliary tree: Common duct normal in size. No intrahepatic bile duct dilatation is seen. Pancreas: Unremarkable Spleen: Spleen normal size. No focal masses. Adrenals: Normal size. Kidneys: Are seen to function bilaterally. No focal abnormalities. Lymph nodes: No enlarged lymph nodes are seen. Retroperitoneum: The aorta is normal in size. Otherwise unremarkable. CT PELVIS FINDINGS: Lymph Nodes: No enlarged lymph nodes. Urinary bladder: Urinary bladder wall mildly thickened. ?? Underwent EGD/EUS. On EGD scope was passed into the stomach. EUS, the scope was not able to be passed into the stomach. Ultrasound revealed one perigastric lymph node. Otherwise the tumor was noted to extend into the cardia and invade to the adventitial layer. ?? PET scan revealed one isolated lymph node metastasis to the left of midline perigastric area most likely corresponding with the node seen on ultrasound. ?? Previous therapy: 1) FOLFOX (CASE 6213 clinical trial). 2) Surgery on 11/09/2015. 3) Adjuvant chemo/radiation with carbo/paciltaxel. 4) ECX- partial response with stable lesion in the liver. 5) Herceptin/cisplatin &?capcitabine. 6) Palliative radiation to upper mediastinum. ?? He underwent a CT-guided biopsy of the liver lesion at [facility]. 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 ? Was diagnosed with extensive DVT of the left arm. He was started on Lovenox. Patient had declined further conventional therapy and pursue holistic medication. I last saw him when he was admitted in early June to this hospital. He has continued taking holistic treatments. He thinks the treatment is working because he has been told that blood work is showing that the cancer has been responding. He presented to the emergency room last night after developing another bout of aspiration. He had antoni down after eating and fell asleep for a little bit.typically he doesn't get recombinant and he's been very vigilant about sitting up particularly after eating. However he awoke an hour or so later after aspirating. He developed increasing cough and worsening shortness of breath and therefore presented to the emergency room. He's been afebrile since presentation. Blood pressure is been doing well. Currently saturating 94% on 3 L/m. He continues to have intractable left lower back pain. Workup previously has not revealed evidence of metastases to this area. He's been seeing Dr. Vance on a regular basis. He continues on Xarelto for history of DVT. He's not had any unusual bleeding or unexplained bruising. Past Medical History: Chronic Problems Metastasis from esophageal cancer (Chronic) Chronic back pain (Chronic) Past Medical/Surgical History: Past Medical History - Most Recent Inpatient Visit Past Medical History Start: 07/24/17 03: 09 Text: Status: Complete Freq: ONCE Protocol: Document 07/24/17 03:09 [facility] (Rec: 07/24/17 03:32 [facility] [id number]) BMI Required to complete PMH What is Patient's BMI 17.5 Past Medical History Unable History Recalled Yes Query Text:Pt Unable/Family Not Present Neurologic Medical History Hx Stroke/TIA No Hx Dementia/Alzheimer's No Hx Parkinson's Disease No Hx Seizures No Hx Multiple Sclerosis No Hx Migraines No Cardiac Medical History VTE Present on Admission No Hx of Deep Vein Thrombosis/VTE/PE Yes Hx Hypertension Yes Hx Chest Pain/Angina No Hx Heart Attack No Hx Cardiac Surgery/Stents/Etc. No Hx Heart Failure No Hx Pacemaker/AICD No Hx Irregular Heartbeat and/or Afib No Hx Anticoagulant Therapy Yes: xarelto Query Text:(Coumadin, Aspirin, Plavix, Xarelto, etc.) Hx Pain in Legs when Walking/Leg Cramps No Respiratory Medical History Hx COPD No Hx Emphysema No Hx Smoking Yes: 1 PPD FOR 3-5 YRS Smoking Status Former smoker Tobacco Use Non-smoker Hx Tobacco Use in last 12 months No Hx Sleep Apnea No Do you snore loudly (louder than talking No or can be heard through closed doors)? Do you often feel tired/ fatigued/ No sleepy during daytime? Has anyone observed you stop breathing No during sleep? STOP Results Negative GI Medical History Hx Ulcer No Hx Hepatitis No Hx Cirrhosis No Hx GI Bleed No Hx Unplanned Weight Loss Yes Genitourinary Medical History Indwelling Catheter in Place on Arrival/ No Admission Hx Renal Disease No: KIDNEY STONE IN THE PAST NO SURGERY, fluid around kidney reportedly Hx Dialysis No Musculoskeletal History Hx Arthritis Yes Hx Rheumatoid Arthritis No Endocrine Medical History Hx Diabetes No Hx Thyroid Disease No Hematologic Medical History Hx of Blood Transfusion No Hx of Transfusion in last 3 Months No Ever experience any problems with No transfusion(s)? Hx of Preganancy in last 3 Months N/A Nurse Filling Out Transfusion & SROBERTSO Questions: Date: 07/24/17 Time: 03:32 Psycho/Social Medical History Hx Depression No Hx Anxiety No Hx Behavior Disorder No Hx Alcohol Use No: in the past Hx Substance Use No Other Medical History Hx Blood Disorders No Hx Anemia No Hx Cancer Yes: ESPHOGEAL CA, LIVER CA Hx Drug Resistant Organism No Wound/Pressure Injury Present on Arrival No /Admission Query Text:If yes, chart assessment in Shift/Clinical Findings Central Line/PICC/VAD Present on Arrival No /Admission Antibiotics within last 7 days? No Risk for Readmission Number of Risk Factors 3 At Risk for Readmission Patient is At Risk For Readmission Patient is eligible for Call Back Y - Social History Lives: Spouse/ Significant Other Smoking Status: Former smoker Tobacco Use: Non-smoker Alcohol: None Allergies/Adverse Reactions: Allergy/AdvReac Type Severity Reaction Status Date / Time aspirin Allergy Unknown Verified 07/23/17 21:20 Penicillins Allergy Rash Verified 07/23/17 21:20 STEROIDS AdvReac Pt is not Uncoded 06/12/17 16:56 to have d/t alternative cancer therapy Review of Systems Constitutional:: Reports: Weakness, Fatigue, Weight loss Respiratory: Reports: Cough, Shortness of breath at rest, Shortness of breath upon exertion, Sputum production Musculoskeletal:: Reports: - - Decrease in muscle mass. Vital Signs Height 1.85 m Weight: 60 kg Weight in Pounds 132.3 lbs Pulse Ox 94 Temperature 99.1 F Pulse Rate 80 Respiratory Rate 16 Blood Pressure 106/79 Blood Pressure Position Semi-Fowlers - Physical Exam General: Alert, - - Thinner Neck:: Supple, - - No adenopathy. Cardiac:: Regular rhythm Lungs: - - Diminished air entry but no coarse rhonchi or wheez currently. Abdomen:: - - There are new palpable tumors along the previous surgical incision site on the anterior abdominal wall. They're not tender. Laboratory Data: Laboratory Tests 3 07/24/17 07/24/17 Range/Units 06:00 06:00 WBC 6.0 (4.4-11.0) K/mm3 RBC 3.55 L (4.6-6.2) M/mm3 Hgb 10.9 L (13.0-16.5) g/dl Hct 32.4 L (40-54) % MCV 91.3 (80-94) fL MCH 30.7 (27.0-32.0) pg MCHC 33.6 (32-36) g/gl RDW 13.5 (11.6-14.6) % RDW Differential 44.0 H (35.1-43.9) fl Plt Count 205 (150-450) K/mm3 MPV 9.4 (6.2-12.0) fl Immature Gran % (Auto) 0.200 (0.0-0.9) % Neut % (Auto) 85.4 H (47-70) % Lymph % (Auto) 3.8 L (19-41) % [place] % (Auto) 9.7 (0-10) % Eos % (Auto) 0.7 (0-5) % Baso % (Auto) 0.2 (0-1) % Absolute Neuts (auto) 5.1 (2.0-7.7) X10^3/uL Absolute Lymphs (auto) 0.23 L (0.83-4.51) X10^3/ul Total Counted Not Reportable Differential Comment SCANNED Sodium 129 L (136-145) mmol/L Potassium 3.6 (3.5-5.1) mmol/L Chloride 93 L (98-107) mmol/L Carbon Dioxide 28.0 (21.0-32.0) mmol/L Anion Gap 8 (5-15) BUN 18 (7-18) mg/dL Creatinine 0.75 (0.70-1.30) mg/dL Estim Creat Clear Calc 91.11 ml/min Est GFR (MDRD) Af Amer 137 (>60) mL/min Est GFR (MDRD) Non-Af 113 (>60) mL/min BUN/Creatinine Ratio 23.9 H (10-20) RATIO Glucose 96 (74-106) mg/dL Calcium 8.5 (8.5-10.1) mg/dL Diagnostic Data: Diagnostic Data Chest X-Ray 07/23/17 22:37 IMPRESSION: Right lower lung infiltrate. Right effusion. Electronically Signed: Jatin Reynolds, DO at 23:46 EDT , Service support , Abdomen X-Ray 07/23/17 22:38 IMPRESSION: Normal x-ray examination of the abdomen and pelvis. 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 -He has been rather vigilant about staying upright particularly after eating. -Discussed with him today that we could look into an ENT evaluation for possible tracheostomy to protect the airway. He would like to hold off on this until he has his scheduled CT scans upcoming in about another 2 weeks. Plan: -Continue supplemental oxygen. -Thickened liquids. -Continue antibiotics for now. -Evaluation for home O2. -Outpatient ENT evaluation for possible tracheostomy. 2) Metastatic adenocarcinoma the GE junction. Assessment: -KPS is 30-40%. -Patient is not mentally ready for hospice care. -He is not a candidate for any further cytotoxic chemotherapy. -Tumor testing showed it to be mismatch repair profession suggesting no role for immunotherapy. Plan: -I will continue discussions with him in the outpatient setting regarding end-of -life care. Medications: Prescriptions This Visit Medication Instructions Recorded Guaifenesin [Mucinex] 1,200 mg PO BID PRN PRN 07/23/17 Methadone HCl [Methadose] 10 mg PO BID 07/23/17 Naldemedine Tosylate [Symproic] 0.2 mg PO 07/24/17 levoFLOXacin tablet [Levaquin 07/24/17 tablet] Medications Added to Medication List This Visit Category Date Time Status Bisacodyl [Dulcolax] Med 07/24/17 09:23 Active 10 mg RECTAL BID PRN Gabapentin [Neurontin] Med 07/24/17 06:00 Active 300 mg PO BID@0600,1800 Ipratropium/Albuterol Sulfate [Duoneb] Med 07/24/17 06:00 Active 3 ml INHALATION Q4H.RT Meropenem [Merrem] 500 mg Med 07/24/17 06:00 Active 0.9% Normal Saline 50 ml IV Q6 Methadone HCl Med 07/24/17 12:00 Active 10 mg PO BID@0000,1200 Naldemedine Tosylate [Symproic] Med 07/24/17 10:00 Pending 0.2 mg PO DAILY Oxycodone Soln [Oxyfast] Med 07/24/17 04:52 Active 5 mg SL Q4H PRN PRN Vancomycin 1,250 mg Med 07/24/17 12:00 Active 0.9% Normal Saline 250 ml IV Q12H Primary Care Provider: Yuriy Franz Referring Provider:
--- NOTE | 2017-07-24 13:05 | NURSING ---
discussed ensure with pt as per nutrionist pt agreeable to ensure. pt refusing ensure at this time. wants to look at glucerna inform. prior to being agreeable to it. will contact nutrionist.
--- NOTE | 2017-07-24 14:44 | PCM.PN.HOSP ---
Patient Problems: Active and Suspected Problems Gram-negative pneumonia (Acute) Subjective: Patient was seen and examined. Admitted last night with aspiration pneumonia. Complains of bloatedness and upper abdominal pain that is relieved with the glycerin suppository. 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 And has been refusing palliative care services, per primary oncologist, is not mentally ready for hospice. Patient admits to feeling slightly short of breath, being on thickened diet, will be seen by speech therapist. Any fever or dizziness or palpitations Objective: Physical Exam General: Alert, Cooperative, No apparent distress, - - Cachectic. Afebrile. HEENT: Atraumatic, Normocephalic Oral: Moist Mucosa, No Gingival or Mucosal Lesions/ Ulcerations Neck: No Nodes, Thyroid Normal Size and Texture Lungs: - - Crackles right lower lobe Cardiovascular: Regular rate, Regular Rhythm, Normal S1, Normal S2 Abdomen: Bowel Sounds Present, Soft, Non Tender, Non-Distended, No Hepato-splenomegaly Extremities: No edema, No Calf Tenderness Skin: No rashes, No breakdown Musculoskeletal: Cachexia, Muscle Wasting Psych/Mental Status: Anxious, Flat Affect Vitals/I&O's: Vital Signs Temp Pulse Resp BP Pulse Ox 99.3 F H 99 18 106/80 98 07/24/17 13:00 07/24/17 13:00 07/24/17 13:00 07/24/17 13:00 07/24/17 13:00 Oxygen Flow Rate (L/min) 2 Oxygen Delivery Method Nasal Cannula Weight: 60 kg Body Mass Index (BMI) 17.5 Intake and Output for Last 24 Hours 07/22/17 07/23/17 07/24/17 23:59 23:59 23:59 Intake Total 2620 / 2620 Output Total 500 / 500 Balance 2120 / 2120 Laboratory Results 07/24/17 06:00: WBC 6.0, RBC 3.55 L, Hgb 10.9 L, Hct 32.4 L, MCV 91.3, MCH 30.7, MCHC 33.6, RDW 13.5, RDW Differential 44.0 H, Plt Count 205, MPV 9.4, Immature Gran % (Auto) 0.200, Neut % (Auto) 85.4 H, Lymph % (Auto) 3.8 L, [place] % (Auto) 9.7, Eos % (Auto) 0.7, Baso % (Auto) 0.2, Absolute Neuts (auto) 5.1, Absolute Lymphs (auto) 0.23 L, Total Counted Not Reportable, Differential Comment SCANNED 07/24/17 06:00: Sodium 129 L, Potassium 3.6, Chloride 93 L, Carbon Dioxide 28.0, Anion Gap 8, BUN 18, Creatinine 0.75, Estim Creat Clear Calc 91.11, Est GFR (MDRD) Af Amer 137, Est GFR (MDRD) Non-Af 113, BUN/Creatinine Ratio 23.9 H, Glucose 96, Calcium 8.5 Current Medications Acetaminophen (Tylenol) 650 mg PO Q6H PRN PRN PRN Reason: Mild Pain (1-3)/Temp > 100.7 F Albuterol Sulfate (Ventolin Aerosols) 2.5 mg INHALATION Q2H PRN PRN PRN Reason: SHORTNESS OF BREATH Albuterol/Ipratropium (Duoneb) 3 ml INHALATION Q4H.RT [facility] Last Admin: 07/24/17 11:16 Dose: 3 ml Bisacodyl (Dulcolax) 10 mg RECTAL BID PRN PRN Reason: CONSTIPATION Last Admin: 07/24/17 10:22 Dose: 10 mg Gabapentin (Neurontin) 300 mg PO BID@0600,1800 [facility] Last Admin: 07/24/17 06:06 Dose: 300 mg Guaifenesin (Mucinex) 1,200 mg PO BID PRN PRN PRN Reason: COUGH Meropenem 500 mg/ Sodium (Chloride) 60 mls @ 100 mls/hr IV Q6 [facility] Last Admin: 07/24/17 11:44 Dose: 100 mls/hr Vancomycin HCl 1,250 mg/ (Sodium Chloride) 275 mls @ 183.333 mls/hr IV Q12H [facility] Last Admin: 07/24/17 11:47 Dose: 183.333 mls/hr Loratadine (Claritin) 10 mg PO DAILY PRN PRN Reason: ALLERGIES Magnesium Hydroxide (Milk Of Magnesia) 30 ml PO DAILY PRN PRN PRN Reason: Constipation Methadone HCl () 10 mg PO BID@0000,1200 [facility] Last Admin: 07/24/17 11:48 Dose: 10 mg Non-Formulary Medication (Naldemedine Tosylate [Symproic]) 0.2 mg PO DAILY [facility] Nutritional Formula (Lactose Free) (Glucerna Shake) 120 ml PO 4X/DAY [facility] Ondansetron HCl (Zofran) 4 mg IV Q8H PRN PRN PRN Reason: NAUSEA Oxycodone HCl (Oxyfast) 5 mg SL Q4H PRN PRN PRN Reason: SEVERE PAIN (6-10/10) Last Admin: 07/24/17 14:40 Dose: 5 mg [facility] Last Admin: 07/24/17 07:38 Dose: 20 mg Sodium Chloride () 5 - 30 ml IV UD PRN PRN Reason: SALINE FLUSH Medical Necessity - Tobacco Use Smoking Status: Former smoker Tobacco Use: Non-smoker Assessment/Plan All Active Problems Aspiration pneumonia (Acute) Hypotension (Acute) Gram-negative pneumonia (Acute) 57-year-old male with past medical history of metastatic esophageal CA, chronic back pain, DVT on Xarelto comes in shortness of breath having laid down and possibly aspirated. 1. Acute hypoxic respiratory insufficiency secondary to aspiration pneumonia/suspected gram-negative pneumonia, on oxygen, will encourage use of incentive spirometer, continue use of breathing treatments 2. aspiration pneumonia/suspected gram-negative pneumonia, continue on meropenem, speech therapy is working with the patient, patient advised to sit up right all the time, will discontinue vancomycin, continue to watch patient closely 3. 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 4. History of DVT, on Xarelto 5. Chronic back pain, on chronic pain medications, following Dr. Vance in the outpatient 6. DVT prophylaxis -Xarelto 7. Code Status: Full code Code Visit Inpatient E&M: 80197 Subs Hosp L3
--- NOTE | 2017-07-24 14:53 | PN_ITS ---
Patient Problems: Active and Suspected Problems Gram-negative pneumonia (Acute) Subjective: Patient was seen and examined. Admitted last night with aspiration pneumonia. Complains of bloatedness and upper abdominal pain that is relieved with the glycerin suppository. 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 And has been refusing palliative care services, per primary oncologist, is not mentally ready for hospice. Patient admits to feeling slightly short of breath, being on thickened diet, will be seen by speech therapist. Any fever or dizziness or palpitations Objective: Physical Exam General: Alert, Cooperative, No apparent distress, - - Cachectic. Afebrile. HEENT: Atraumatic, Normocephalic Oral: Moist Mucosa, No Gingival or Mucosal Lesions/ Ulcerations Neck: No Nodes, Thyroid Normal Size and Texture Lungs: - - Crackles right lower lobe Cardiovascular: Regular rate, Regular Rhythm, Normal S1, Normal S2 Abdomen: Bowel Sounds Present, Soft, Non Tender, Non-Distended, No Hepato- splenomegaly Extremities: No edema, No Calf Tenderness Skin: No rashes, No breakdown Musculoskeletal: Cachexia, Muscle Wasting Psych/Mental Status: Anxious, Flat Affect Vitals/I&O's: Vital Signs Temp Pulse Resp BP Pulse Ox 99.3 F H 99 18 106/80 98 07/24/17 13:00 07/24/17 13:00 07/24/17 13:00 07/24/17 13:00 07/24/17 13:00 Oxygen Flow Rate (L/min) 2 Oxygen Delivery Method Nasal Cannula Weight: 60 kg Body Mass Index (BMI) 17.5 Intake and Output for Last 24 Hours 07/22/17 07/23/17 07/24/17 23:59 23:59 23:59 Intake Total 2620 / 2620 Output Total 500 / 500 Balance 2120 / 2120 Laboratory Results 07/24/17 06:00: WBC 6.0, RBC 3.55 L, Hgb 10.9 L, Hct 32.4 L, MCV 91.3, MCH 30.7 , MCHC 33.6, RDW 13.5, RDW Differential 44.0 H, Plt Count 205, MPV 9.4, Immature Gran % (Auto) 0.200, Neut % (Auto) 85.4 H, Lymph % (Auto) 3.8 L, [place] % (Auto) 9.7, Eos % (Auto) 0.7, Baso % (Auto) 0.2, Absolute Neuts (auto) 5.1, Absolute Lymphs (auto) 0.23 L, Total Counted Not Reportable, Differential Comment SCANNED 07/24/17 06:00: Sodium 129 L, Potassium 3.6, Chloride 93 L, Carbon Dioxide 28.0 , Anion Gap 8, BUN 18, Creatinine 0.75, Estim Creat Clear Calc 91.11, Est GFR ( MDRD) Af Amer 137, Est GFR (MDRD) Non-Af 113, BUN/Creatinine Ratio 23.9 H, Glucose 96, Calcium 8.5 Current Medications Acetaminophen (Tylenol) 650 mg PO Q6H PRN PRN PRN Reason: Mild Pain (1-3)/Temp > 100.7 F Albuterol Sulfate (Ventolin Aerosols) 2.5 mg INHALATION Q2H PRN PRN PRN Reason: SHORTNESS OF BREATH Albuterol/Ipratropium (Duoneb) 3 ml INHALATION Q4H.RT [facility] Last Admin: 07/24/17 11:16 Dose: 3 ml Bisacodyl (Dulcolax) 10 mg RECTAL BID PRN PRN Reason: CONSTIPATION Last Admin: 07/24/17 10:22 Dose: 10 mg Gabapentin (Neurontin) 300 mg PO BID@0600,1800 [facility] Last Admin: 07/24/17 06:06 Dose: 300 mg Guaifenesin (Mucinex) 1,200 mg PO BID PRN PRN PRN Reason: COUGH Meropenem 500 mg/ Sodium (Chloride) 60 mls @ 100 mls/hr IV Q6 [facility] Last Admin: 07/24/17 11:44 Dose: 100 mls/hr Vancomycin HCl 1,250 mg/ (Sodium Chloride) 275 mls @ 183.333 mls/hr IV Q12H [facility] Last Admin: 07/24/17 11:47 Dose: 183.333 mls/hr Loratadine (Claritin) 10 mg PO DAILY PRN PRN Reason: ALLERGIES Magnesium Hydroxide (Milk Of Magnesia) 30 ml PO DAILY PRN PRN PRN Reason: Constipation Methadone HCl () 10 mg PO BID@0000,1200 [facility] Last Admin: 07/24/17 11:48 Dose: 10 mg Non-Formulary Medication (Naldemedine Tosylate [Symproic]) 0.2 mg PO DAILY [facility] Nutritional Formula (Lactose Free) (Glucerna Shake) 120 ml PO 4X/DAY [facility] Ondansetron HCl (Zofran) 4 mg IV Q8H PRN PRN PRN Reason: NAUSEA Oxycodone HCl (Oxyfast) 5 mg SL Q4H PRN PRN PRN Reason: SEVERE PAIN (6-10/10) Last Admin: 07/24/17 14:40 Dose: 5 [facility] Last Admin: 07/24/17 07:38 Dose: 20 mg Sodium Chloride () 5 - 30 ml IV UD PRN PRN Reason: SALINE FLUSH Medical Necessity - Tobacco Use Smoking Status: Former smoker Tobacco Use: Non-smoker Assessment/Plan All Active Problems Aspiration pneumonia (Acute) Hypotension (Acute) Gram-negative pneumonia (Acute) 57-year-old male with past medical history of metastatic esophageal CA, chronic back pain, DVT on Xarelto comes in shortness of breath having laid down and possibly aspirated. 1. Acute hypoxic respiratory insufficiency secondary to aspiration pneumonia/ suspected gram-negative pneumonia, on oxygen, will encourage use of incentive spirometer, continue use of breathing treatments 2. aspiration pneumonia/suspected gram-negative pneumonia, continue on meropenem , speech therapy is working with the patient, patient advised to sit up right all the time, will discontinue vancomycin, continue to watch patient closely 3. 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 4. History of DVT, on Xarelto 5. Chronic back pain, on chronic pain medications, following Dr. Vance in the outpatient 6. DVT prophylaxis -Xarelto 7. Code Status: Full code Code Visit Inpatient E&M: 34327 Subs Hosp L3
[2017-07-24] MEDS: Acetaminophen 325 MG Tablet 650 MG PO (16:46)
[2017-07-24] MEDS: Glucerna Shake 120 ML LIQUID PO (22:14)
[2017-07-25] VITALS (14 sets, daily range): BP systolic 86–107; BP diastolic 60–77; PULSE 85–110; RESP 14–21; TEMP 36.3–37.1; O2SAT 95–100
[2017-07-25] MEDS: Ipratropium/Albuterol Sulfate 3 ML AMPUL.NEB INHALATION ×5 (02:30→23:11)
[2017-07-25] MEDS: oxyCODONE Soln 5 MG/0.25 ML PO.SYRINGE SL ×3 (03:19→23:48)
[2017-07-25] MEDS: Gabapentin 300 MG Capsule PO ×2 (05:57→21:35)
[2017-07-25] MEDS: Rivaroxaban 20 MG Tablet PO (07:56)
[2017-07-25] MEDS: Glucerna Shake 120 ML LIQUID PO ×3 (09:23→18:34)
--- NOTE | 2017-07-25 11:29 | CPS ---
Patient working on PEP therapy on own after aerosols.
--- NOTE | 2017-07-25 11:50 | PCM.PN.HOSP ---
Patient Problems: Active and Suspected Problems Gram-negative pneumonia (Acute) Subjective: Patient was seen and examined. He still feels short of breath. Able to eat a little bit. Been sitting up upright. Denies any fever or chills Objective: Physical Exam General: Alert, Cooperative, No apparent distress, - - Cachectic. Afebrile. HEENT: Atraumatic, Normocephalic Oral: Moist Mucosa, No Gingival or Mucosal Lesions/ Ulcerations Neck: No Nodes, Thyroid Normal Size and Texture Lungs: - - Crackles right lower lobe Cardiovascular: Regular rate, Regular Rhythm, Normal S1, Normal S2 Abdomen: Bowel Sounds Present, Soft, Non Tender, Non-Distended, No Hepato-splenomegaly Extremities: No edema, No Calf Tenderness Skin: No rashes, No breakdown Musculoskeletal: Cachexia, Muscle Wasting Psych/Mental Status: Anxious, Flat Affect Vitals/I&O's: Vital Signs Temp Pulse Resp BP Pulse Ox 98.8 F 110 H 18 94/67 98 07/25/17 11:48 07/25/17 11:48 07/25/17 11:48 07/25/17 11:48 07/25/17 11:48 Oxygen Flow Rate (L/min) 2 Oxygen Delivery Method Nasal Cannula Weight: 60 kg Body Mass Index (BMI) 17.5 Intake and Output for Last 24 Hours 07/23/17 07/24/17 07/25/17 23:59 23:59 23:59 Intake Total 2945 / 2945 496 / 496 Output Total 500 / 500 200 / 200 Balance 2445 / 2445 296 / 296 Laboratory Results 07/25/17 11:24: Vancomycin Trough Pending Current Medications Acetaminophen (Tylenol) 650 mg PO Q6H PRN PRN PRN Reason: Mild Pain (1-3)/Temp > 100.7 F Last Admin: 07/24/17 16:46 Dose: 650 mg Albuterol Sulfate (Ventolin Aerosols) 2.5 mg INHALATION Q2H PRN PRN PRN Reason: SHORTNESS OF BREATH Albuterol/Ipratropium (Duoneb) 3 ml INHALATION Q4H.RT [facility] Last Admin: 07/25/17 11:27 Dose: 3 ml Bisacodyl (Dulcolax) 10 mg RECTAL BID PRN PRN Reason: CONSTIPATION Last Admin: 07/24/17 10:22 Dose: 10 mg Gabapentin (Neurontin) 300 mg PO BID@0600,1800 [facility] Last Admin: 07/25/17 05:57 Dose: 300 mg Guaifenesin (Mucinex) 1,200 mg PO BID PRN PRN PRN Reason: COUGH Meropenem 500 mg/ Sodium (Chloride) 60 mls @ 100 mls/hr IV Q6 [facility] Last Admin: 07/25/17 05:57 Dose: 100 mls/hr Loratadine (Claritin) 10 mg PO DAILY PRN PRN Reason: ALLERGIES Magnesium Hydroxide (Milk Of Magnesia) 30 ml PO DAILY PRN PRN PRN Reason: Constipation Methadone HCl () 10 mg PO BID@0000,1200 [facility] Last Admin: 07/25/17 00:00 Dose: 10 mg Non-Formulary Medication (Naldemedine Tosylate [Symproic]) 0.2 mg PO DAILY [facility] Nutritional Formula (Lactose Free) (Glucerna Shake) 120 ml PO 4X/DAY [facility] Last Admin: 07/25/17 09:23 Dose: 120 ml Ondansetron HCl (Zofran) 4 mg IV Q8H PRN PRN PRN Reason: NAUSEA Oxycodone HCl (Oxyfast) 5 mg SL Q3H PRN PRN PRN Reason: SEVERE PAIN (6-10/10) Last Admin: 07/25/17 03:19 Dose: 5 mg Rivaroxaban (Xarelto) 20 mg PO DAILYCM [facility] Last Admin: 07/25/17 07:56 Dose: 20 mg Sodium Chloride () 5 - 30 ml IV UD PRN PRN Reason: SALINE FLUSH Medical Necessity - Tobacco Use Smoking Status: Former smoker Tobacco Use: Non-smoker Assessment/Plan All Active Problems Aspiration pneumonia (Acute) Hypotension (Acute) Gram-negative pneumonia (Acute) 57-year-old male with past medical history of metastatic esophageal CA, chronic back pain, DVT on Xarelto comes in shortness of breath having laid down and possibly aspirated. 1. Acute hypoxic respiratory insufficiency secondary to aspiration pneumonia/suspected gram-negative pneumonia, insulin 2 L of oxygen, will wean off oxygen and encourage use of incentive spirometer, need oxygen on discharge. 2. aspiration pneumonia/suspected gram-negative pneumonia, on meropenem, speech therapy is working with the patient, patient advised to sit up right all the time, will continue to monitor 3. 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 4. History of DVT, on Xarelto 5. Chronic back pain, on chronic pain medications, following Dr. Vance in the outpatient 6. DVT prophylaxis -Xarelto 7. Code Status: Full code Code Visit Inpatient E&M: 25629 Subs Hosp L3
[2017-07-25] MEDS: Methadone 10 MG Tablet PO ×2 (11:55)
[2017-07-25 12:37] LABS: Vancomycin, Trough Level 6.7 ug/mL (5.0-15.0)
--- NOTE | 2017-07-25 18:49 | NURSING ---
O2 DECREASED TO 1L NC. PT DOES NOT LEAVE O2 ON CONTINUOUSLY, REMOVES AD FARZANA.
[2017-07-25] MEDS: Docusate Sodium 100 MG Capsule PO (23:48)
[2017-07-26] VITALS (11 sets, daily range): BP systolic 87–100; BP diastolic 49–74; PULSE 78–102; RESP 16–25; TEMP 36.6–36.9; O2SAT 95–100
[2017-07-26] MEDS: Methadone 10 MG Tablet PO ×2 (00:39→12:05)
[2017-07-26] MEDS: oxyCODONE Soln 5 MG/0.25 ML PO.SYRINGE SL ×4 (03:08→21:06)
[2017-07-26] MEDS: Gabapentin 300 MG Capsule PO ×2 (05:42→17:12)
--- NOTE | 2017-07-26 06:00 | RAD_ITS ---
STUDY: X-RAY CHEST REASON FOR EXAM: Male, 57 years old. Shortness of breath TECHNIQUE: 1 view COMPARISON: July 23, 2017 FINDINGS: The left lung remains clear. There continues to be a right-sided pleural effusion but the right lower lobe opacity is less. The heart remains within normal limits in size. Normal visualized thoracic spine. Normal visualized ribs, clavicles, and shoulders. There is no demonstrated abnormality of the visualized soft tissue structures of the upper abdomen. RAD/Chest 1 View (Portable) IMPRESSION: The right side effusion with right lower lobe opacity representing a combination of compressive atelectatic changes and consolidation. The opacity looks less impressive than had been seen on July 23, 2017 Electronically Signed: Hernandez Reddy, at 10:23 EDT Tel , Service support ,
[2017-07-26] MEDS: 0.9% Normal Saline 1,000 ML 75 ML IV (06:26)
[2017-07-26] MEDS: Ipratropium/Albuterol Sulfate 3 ML AMPUL.NEB INHALATION ×5 (07:09→22:45)
[2017-07-26] MEDS: Rivaroxaban 20 MG Tablet PO (07:59)
[2017-07-26 08:21] LABS: Absolute Lymphocyte Count 0.31 X10^3/ul (0.83-4.51); Absolute Neutrophil Count 4.7 X10^3/uL (2.0-7.7); Basophil# 0.01 X10^3/uL; Basophil% 0.2 % (0-1); Eosinophil# 0.06 X10^3/uL; Eosinophils% 1.1 % (0-5); Hematocrit 30.6 % (40-54); Hemoglobin 10.2 g/dl (13.0-16.5); Lymphocyte # 0.31 X10^3/ul (4.0); Lymphocyte % 5.5 % (19-41); Mean Corp Hgb Conc 33.3 g/gl (32-36); Mean Corpuscular Hgb 30.7 pg (27.0-32.0); Mean Corpuscular Volume 92.2 fL (80-94); Mean Platelet Vol. 9.2 fl (6.2-12.0); Monocyte# 0.55 X10^3/uL; Monocyte% 9.8 % (0-10); Neutrophil # 4.68 X10^3/uL (2.7-7.7); Platelet Count 222 K/mm3 (150-450); RBC Distribution Width CV 13.8 % (11.6-14.6); Red Blood Count 3.32 M/mm3 (4.6-6.2); White Blood Count 5.6 K/mm3 (4.4-11.0)
[2017-07-26 08:23] LABS: Differential Indicated SCAN CRITERIA MET; POSITIVE COUNT NO; POSITIVE DIFFERENTIAL YES; POSITIVE MORPHOLOGY NO
[2017-07-26 08:31] LABS: Anion Gap 7 (5-15); BUN 14 mg/dL (7-18); BUN/Creat Ratio 18.9 RATIO (10-20); Calcium,Total 8.8 mg/dL (8.5-10.1); Chloride 96 mmol/L (98-107); Creatinine, Serum 0.74 mg/dL (0.70-1.30); EST Glomerular Filtration Rate 115 mL/min (>60); Est Glom Filt Rate - Afr Amer 140 mL/min (>60); Estimated Creatinine Clearance 92.34 ml/min; Glucose 98 mg/dL (74-106); Potassium 3.5 mmol/L (3.5-5.1); Sodium Level 132 mmol/L (136-145)
[2017-07-26] MEDS: Docusate Sodium 100 MG Capsule PO ×2 (09:17→21:16)
[2017-07-26] MEDS: Glucerna Shake 120 ML LIQUID PO ×4 (09:17→21:19)
--- NOTE | 2017-07-26 10:11 | CASEMGMT ---
SOCIAL WORK: Dr. Bowman requested for this SW to check on patient eligibility for a hospital bed due to recurrent aspiration pneumonia. Per review of chart, SHUBHAM notes that patient has [employer] insurance; panel provider for DME is [facility] at [phone] or [phone]. Call placed to [facility] to request that on-call commissary representative return my call. Subsequent call received from Logan who confirmed that above is qualifying diagnosis and that the following information would need to be faxed to [phone] for review and processing: patient face sheet; physician script for semi-electric hospital bed with orders for head elevation of at least 30 degrees with diagnosis and height and weight and physician progress note stating need for DME. Phone attempt with Dr. Bowman to notify; message left with my extension for return call. Bela VENEGAS,BAYRONA
--- NOTE | 2017-07-26 10:26 | CASEMGMT ---
Collaboration with Speech Therapist who recommends outpatient Speech Therapy for patient upon discharge. SW notified RN AMPARO who will update Dr. Bowman. BAYRON SongA
--- NOTE | 2017-07-26 12:42 | CASEMGMT ---
Patient and spouse updated. Copies of script for hospital bed given to patient's spouse, as well as script for [facility]. Instructed spouse to call [facility] if she does not hear from them on Friday. Script faxed to [facility] for speech therapy. Dr. Bowman updated and will include documentation in her progress not indicating need for hospital bed. Green sheet on chart for DME with [facility].
--- NOTE | 2017-07-26 14:37 | PCM.PN.HOSP ---
Patient Problems: Active and Suspected Problems Gram-negative pneumonia (Acute) Subjective: Patient was seen and examined. BP has been low. Patient is asymptomatic. Still has short shortness of breath on exertion. Denies fever or chills. Been off his oxygen mostly. Objective: Physical Exam General: Alert, Cooperative, No apparent distress, - - Cachectic. Afebrile. HEENT: Atraumatic, Normocephalic Oral: Moist Mucosa, No Gingival or Mucosal Lesions/ Ulcerations Neck: No Nodes, Thyroid Normal Size and Texture Lungs: - - Crackles right lower lobe Cardiovascular: Regular rate, Regular Rhythm, Normal S1, Normal S2 Abdomen: Bowel Sounds Present, Soft, Non Tender, Non-Distended, No Hepato-splenomegaly Extremities: No edema, No Calf Tenderness Skin: No rashes, No breakdown Musculoskeletal: Cachexia, Muscle Wasting Psych/Mental Status: Anxious, Flat Affect Vitals/I&O's: Vital Signs Temp Pulse Resp BP Pulse Ox 98.0 F 94 18 100/74 96 07/26/17 14:02 07/26/17 14:02 07/26/17 14:02 07/26/17 14:02 07/26/17 14:02 Oxygen Flow Rate (L/min) 2 Oxygen Delivery Method Room Air Weight: 60 kg Body Mass Index (BMI) 17.5 Intake and Output for Last 24 Hours 07/24/17 07/25/17 07/26/17 23:59 23:59 23:59 Intake Total 2945 / 2945 1202 / 1202 1687 / 1687 Output Total 500 / 500 500 / 500 Balance 2445 / 2445 702 / 702 1687 / 1687 Laboratory Results 07/26/17 07:43: WBC 5.6, RBC 3.32 L, Hgb 10.2 L, Hct 30.6 L, MCV 92.2, MCH 30.7, MCHC 33.3, RDW 13.8, RDW Differential 45.0 H, Plt Count 222, MPV 9.2, Immature Gran % (Auto) 0.400, Neut % (Auto) 83.0 H, Lymph % (Auto) 5.5 L, [place] % (Auto) 9.8, Eos % (Auto) 1.1, Baso % (Auto) 0.2, Absolute Neuts (auto) 4.7, Absolute Lymphs (auto) 0.31 L, Total Counted Pending 07/26/17 07:43: Sodium 132 L, Potassium 3.5, Chloride 96 L, Carbon Dioxide 29.0, Anion Gap 7, BUN 14, Creatinine 0.74, Estim Creat Clear Calc 92.34, Est GFR (MDRD) Af Amer 140, Est GFR (MDRD) Non-Af 115, BUN/Creatinine Ratio 18.9, Glucose 98, Calcium 8.8 Current Medications Acetaminophen (Tylenol) 650 mg PO Q6H PRN PRN PRN Reason: Mild Pain (1-3)/Temp > 100.7 F Last Admin: 07/24/17 16:46 Dose: 650 mg Albuterol Sulfate (Ventolin Aerosols) 2.5 mg INHALATION Q2H PRN PRN PRN Reason: SHORTNESS OF BREATH Albuterol/Ipratropium (Duoneb) 3 ml INHALATION Q4H.RT [facility] Last Admin: 07/26/17 11:36 Dose: 3 ml Bisacodyl (Dulcolax) 10 mg RECTAL BID PRN PRN Reason: CONSTIPATION Last Admin: 07/24/17 10:22 Dose: 10 mg Docusate Sodium (Colace) 100 mg PO BID [facility] Last Admin: 07/26/17 09:17 Dose: 100 mg Gabapentin (Neurontin) 300 mg PO BID@0600,1800 [facility] Last Admin: 07/26/17 05:42 Dose: 300 mg Guaifenesin (Mucinex) 1,200 mg PO BID PRN PRN PRN Reason: COUGH Meropenem 500 mg/ Sodium (Chloride) 60 mls @ 100 mls/hr IV Q6 [facility] Last Admin: 07/26/17 12:05 Dose: 100 mls/hr Sodium Chloride () 1,000 mls @ 100 mls/hr IV .Q10H [facility] Loratadine (Claritin) 10 mg PO DAILY PRN PRN Reason: ALLERGIES Magnesium Hydroxide (Milk Of Magnesia) 30 ml PO DAILY PRN PRN PRN Reason: Constipation Methadone HCl () 10 mg PO BID@0000,1200 [facility] Last Admin: 07/26/17 12:05 Dose: 10 mg Nutritional Formula (Lactose Free) (Glucerna Shake) 120 ml PO 4X/DAY [facility] Last Admin: 07/26/17 14:05 Dose: 120 ml Ondansetron HCl (Zofran) 4 mg IV Q8H PRN PRN PRN Reason: NAUSEA Oxycodone HCl (Oxyfast) 5 mg SL Q3H PRN PRN PRN Reason: SEVERE PAIN (6-10/10) Last Admin: 07/26/17 09:37 Dose: 5 [facility] Last Admin: 07/26/17 07:59 Dose: 20 mg Simethicone (Mylicon) 80 mg PO TIDPC [facility] Last Admin: 07/26/17 12:05 Dose: 80 mg Sodium Chloride () 5 - 30 ml IV UD PRN PRN Reason: SALINE FLUSH Medical Necessity - Tobacco Use Smoking Status: Former smoker Tobacco Use: Non-smoker Assessment/Plan All Active Problems Aspiration pneumonia (Acute) Hypotension (Acute) Gram-negative pneumonia (Acute) 57-year-old male with past medical history of metastatic esophageal CA, chronic back pain, DVT on Xarelto comes in shortness of breath having laid down and possibly aspirated. 1. Acute hypoxic respiratory insufficiency secondary to aspiration pneumonia/suspected gram-negative pneumonia, 2 L of oxygen, will continue to wean off oxygen, as for ambulatory oxygen tomorrow 2. aspiration pneumonia/suspected gram-negative pneumonia, on meropenem day 3, switched to oral Augmentin from tomorrow. 3. 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 4. History of DVT, on Xarelto 5. Chronic back pain, on chronic pain medications, following Dr. Vance in the outpatient 6. DVT prophylaxis -Xarelto 7. Code Status: Full code Code Visit Inpatient E&M: 87346 Subs Hosp L2
--- NOTE | 2017-07-26 14:43 | PN_ITS ---
Patient Problems: Active and Suspected Problems Gram-negative pneumonia (Acute) Subjective: Patient was seen and examined. BP has been low. Patient is asymptomatic. Still has short shortness of breath on exertion. Denies fever or chills. Been off his oxygen mostly. Objective: Physical Exam General: Alert, Cooperative, No apparent distress, - - Cachectic. Afebrile. HEENT: Atraumatic, Normocephalic Oral: Moist Mucosa, No Gingival or Mucosal Lesions/ Ulcerations Neck: No Nodes, Thyroid Normal Size and Texture Lungs: - - Crackles right lower lobe Cardiovascular: Regular rate, Regular Rhythm, Normal S1, Normal S2 Abdomen: Bowel Sounds Present, Soft, Non Tender, Non-Distended, No Hepato- splenomegaly Extremities: No edema, No Calf Tenderness Skin: No rashes, No breakdown Musculoskeletal: Cachexia, Muscle Wasting Psych/Mental Status: Anxious, Flat Affect Vitals/I&O's: Vital Signs Temp Pulse Resp BP Pulse Ox 98.0 F 94 18 100/74 96 07/26/17 14:02 07/26/17 14:02 07/26/17 14:02 07/26/17 14:02 07/26/17 14:02 Oxygen Flow Rate (L/min) 2 Oxygen Delivery Method Room Air Weight: 60 kg Body Mass Index (BMI) 17.5 Intake and Output for Last 24 Hours 07/24/17 07/25/17 07/26/17 23:59 23:59 23:59 Intake Total 2945 / 2945 1202 / 1202 1687 / 1687 Output Total 500 / 500 500 / 500 Balance 2445 / 2445 702 / 702 1687 / 1687 Laboratory Results 07/26/17 07:43: WBC 5.6, RBC 3.32 L, Hgb 10.2 L, Hct 30.6 L, MCV 92.2, MCH 30.7 , MCHC 33.3, RDW 13.8, RDW Differential 45.0 H, Plt Count 222, MPV 9.2, Immature Gran % (Auto) 0.400, Neut % (Auto) 83.0 H, Lymph % (Auto) 5.5 L, [place] % (Auto) 9.8, Eos % (Auto) 1.1, Baso % (Auto) 0.2, Absolute Neuts (auto) 4.7, Absolute Lymphs (auto) 0.31 L, Total Counted Pending 07/26/17 07:43: Sodium 132 L, Potassium 3.5, Chloride 96 L, Carbon Dioxide 29.0 , Anion Gap 7, BUN 14, Creatinine 0.74, Estim Creat Clear Calc 92.34, Est GFR ( MDRD) Af Amer 140, Est GFR (MDRD) Non-Af 115, BUN/Creatinine Ratio 18.9, Glucose 98, Calcium 8.8 Current Medications Acetaminophen (Tylenol) 650 mg PO Q6H PRN PRN PRN Reason: Mild Pain (1-3)/Temp > 100.7 F Last Admin: 07/24/17 16:46 Dose: 650 mg Albuterol Sulfate (Ventolin Aerosols) 2.5 mg INHALATION Q2H PRN PRN PRN Reason: SHORTNESS OF BREATH Albuterol/Ipratropium (Duoneb) 3 ml INHALATION Q4H.RT [facility] Last Admin: 07/26/17 11:36 Dose: 3 ml Bisacodyl (Dulcolax) 10 mg RECTAL BID PRN PRN Reason: CONSTIPATION Last Admin: 07/24/17 10:22 Dose: 10 mg Docusate Sodium (Colace) 100 mg PO BID [facility] Last Admin: 07/26/17 09:17 Dose: 100 mg Gabapentin (Neurontin) 300 mg PO BID@0600,1800 [facility] Last Admin: 07/26/17 05:42 Dose: 300 mg Guaifenesin (Mucinex) 1,200 mg PO BID PRN PRN PRN Reason: COUGH Meropenem 500 mg/ Sodium (Chloride) 60 mls @ 100 mls/hr IV Q6 [facility] Last Admin: 07/26/17 12:05 Dose: 100 mls/hr Sodium Chloride () 1,000 mls @ 100 mls/hr IV .Q10H [facility] Loratadine (Claritin) 10 mg PO DAILY PRN PRN Reason: ALLERGIES Magnesium Hydroxide (Milk Of Magnesia) 30 ml PO DAILY PRN PRN PRN Reason: Constipation Methadone HCl () 10 mg PO BID@0000,1200 [facility] Last Admin: 07/26/17 12:05 Dose: 10 mg Nutritional Formula (Lactose Free) (Glucerna Shake) 120 ml PO 4X/DAY [facility] Last Admin: 07/26/17 14:05 Dose: 120 ml Ondansetron HCl (Zofran) 4 mg IV Q8H PRN PRN PRN Reason: NAUSEA Oxycodone HCl (Oxyfast) 5 mg SL Q3H PRN PRN PRN Reason: SEVERE PAIN (6-10/10) Last Admin: 07/26/17 09:37 Dose: 5 mg [facility]) [facility] Last Admin: 07/26/17 07:59 Dose: 20 mg Simethicone (Mylicon) 80 mg PO TIDPC [facility] Last Admin: 07/26/17 12:05 Dose: 80 mg Sodium Chloride () 5 - 30 ml IV UD PRN PRN Reason: SALINE FLUSH Medical Necessity - Tobacco Use Smoking Status: Former smoker Tobacco Use: Non-smoker Assessment/Plan All Active Problems Aspiration pneumonia (Acute) Hypotension (Acute) Gram-negative pneumonia (Acute) 57-year-old male with past medical history of metastatic esophageal CA, chronic back pain, DVT on Xarelto comes in shortness of breath having laid down and possibly aspirated. 1. Acute hypoxic respiratory insufficiency secondary to aspiration pneumonia/ suspected gram-negative pneumonia, 2 L of oxygen, will continue to wean off oxygen, as for ambulatory oxygen tomorrow 2. aspiration pneumonia/suspected gram-negative pneumonia, on meropenem day 3, switched to oral Augmentin from tomorrow. 3. 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 4. History of DVT, on Xarelto 5. Chronic back pain, on chronic pain medications, following Dr. Vance in the outpatient 6. DVT prophylaxis -Xarelto 7. Code Status: Full code Code Visit Inpatient E&M: 95423 Subs Hosp L2
[2017-07-26] MEDS: Acetaminophen 325 MG Tablet 650 MG PO (17:10)
[2017-07-26] MEDS: 0.9% Normal Saline 1,000 ML 100 ML IV (18:37)
[2017-07-26] MEDS: Senna Tablet 1 TABLET PO (21:16)
[2017-07-27] VITALS (8 sets, daily range): BP systolic 88–104; BP diastolic 65–77; PULSE 85–97; RESP 16–18; TEMP 36.5–36.7; O2SAT 94–100
[2017-07-27] MEDS: Methadone 10 MG Tablet PO ×2 (00:07→12:21)
[2017-07-27] MEDS: oxyCODONE Soln 5 MG/0.25 ML PO.SYRINGE SL ×3 (03:21→13:26)
[2017-07-27] MEDS: Acetaminophen 325 MG Tablet 650 MG PO (03:21)
[2017-07-27] MEDS: 0.9% Normal Saline 1,000 ML 100 ML IV (05:17)
[2017-07-27] MEDS: Gabapentin 300 MG Capsule PO (05:17)
[2017-07-27] MEDS: Ipratropium/Albuterol Sulfate 3 ML AMPUL.NEB INHALATION ×2 (07:51→10:57)
[2017-07-27] MEDS: Docusate Sodium 100 MG Capsule PO (08:56)
[2017-07-27] MEDS: Rivaroxaban 20 MG Tablet PO (08:56)
[2017-07-27] MEDS: Senna Tablet 1 TABLET PO (08:57)
[2017-07-27] MEDS: Glucerna Shake 120 ML LIQUID PO (09:03)
--- NOTE | 2017-07-27 09:23 | PCM.DC ---
- Discharge Diagnoses Current Active Problems: Current Active and Chronic Problems Gram-negative pneumonia (Acute) Reason(s) for Visit for Discharge Instructions: Shortness of breath You will use the following diet at home:: Regular Your food should be the consistency of: Regular - Thin consistency Your liquids should be the consistency of: [place] Thick Discharge Activity: Return to Normal Activity Additional Instructions: Continue to sleep upright to prevent your risk of recurrent aspiration. You have been prescribed a hospital bed to help you sit upright at 90 degrees for eating and sleeping. Continue to follow-up with DR. Gomez. You should discuss your goals of care going forward with Dr. Gomez and consider palliative care to address your needs going forward. Allergies/Adverse Reactions: Allergies aspirin Allergy (Verified 07/23/17 21:20) Unknown Penicillins Allergy (Verified 07/23/17 21:20) Rash STEROIDS Adverse Reaction (Uncoded 06/12/17 16:56) Pt is not to have d/t alternative cancer therapy Medications to take at Discharge Loratadine [Claritin] 10 mg PO DAILY PRN 08/10/15 Biocellular 2 cap PO TIDCM 06/12/17 D3k2 2 each PO BID 06/12/17 Ling Harinder 2 each PO BID 06/12/17 Macrophage 0.4 units SQ DAILY 06/12/17 Macrophage [place] 0.5 units INHALATION DAILY 06/12/17 Oxycodone HCl 5 mg SL Q4H PRN PRN 06/12/17 Performance 2 cap PO TIDCM 06/12/17 Rivaroxaban [Xarelto] 20 mg PO DAILY 06/12/17 Sea Extract 15 drop PO BID 06/12/17 Ultra Pro 2 cap PO TID 06/12/17 Guaifenesin [Mucinex] 1,200 mg PO BID PRN PRN 07/23/17 Methadone HCl [Methadose] 10 mg PO BID 07/23/17 Naldemedine Tosylate [Symproic] 0.2 mg PO 07/24/17 Amoxicillin/Potassium Clav [Augmentin 875-125 Tablet] 1 ea PO BID #14 tab 07/27/17 Docusate Sodium [Colace] 100 mg PO BID #60 cap 07/27/17 Gabapentin [Neurontin] 300 mg PO BID@0600,1800 #60 cap 07/27/17 Glucerna Shake 120 ml PO 4X/DAY #100 liquid 07/27/17 SimETHICONE [Mylicon] 80 mg PO TIDPC #90 tab 07/27/17 The following prescriptions were given: Gabapentin [Neurontin] 300 mg PO BID@0600,1800 #60 cap SimETHICONE [Mylicon] 80 mg PO TIDPC #90 tab Docusate Sodium [Colace] 100 mg PO BID #60 cap Glucerna Shake 120 ml PO 4X/DAY #100 liquid Primary Care Physician: Yuriy Franz III, MD [Primary Care Provider] - Please follow up with your Primary Care Physician in: within 2 weeks Please Follow Up With: Rahul Gomez DO When: within 2 week When: Speech therapy in the outpatient as discussed Proposed Discharge Date: 07/27/17
--- NOTE | 2017-07-27 09:33 | PCM.DC.SUM ---
Discharge Date and Diagnosis - Problem List Patient Problems: Active and Suspected Problems Gram-negative pneumonia (Acute) Date of Admission: 07/24/17 Date of Discharge: 07/27/17 - Primary Discharge Diagnosis Active and Suspected Problems Gram-negative pneumonia (Acute) Aspiration pneumonia Hyponatremia - Secondary Discharge Diagnosis Chronic Problems Metastasis from esophageal cancer (Chronic) Chronic back pain (Chronic) Hospital Course and Treatment Imaging Results: Clinical Impression(s) from Imaging Studies Chest X-Ray 07/23/17 22:37 IMPRESSION: Right lower lung infiltrate. Right effusion. Electronically Signed: Jatin Reynolds DO at 23:46 EDT , Service support , Abdomen X-Ray 07/23/17 22:38 IMPRESSION: Normal x-ray examination of the abdomen and pelvis. Electronically Signed: Jatin Reynolds DO at 23:42 EDT , Service support , Chest X-Ray 07/26/17 06:00 IMPRESSION: The right side effusion with right lower lobe opacity representing a combination of compressive atelectatic changes and consolidation. The opacity looks less impressive than had been seen on July 23, 2017 Electronically Signed: Hernandez Reddy, at 10:23 EDT Tel , Service support , Oncology Operations: None Procedures: None Summary of Care Provided: 57-year-old male with past medical history of metastatic esophageal CA, chronic back pain, DVT on Xarelto, recurrent aspiration pneumonia comes in shortness of breath having laid down and aspirated. Patient follows closely with Dr. Gomez, has refused facility and hospice care in the past. He is on alternative medicines as he can no longer have chemotherapy or immunotherapy. Patient has been told in the past to eat in the 90? angle and also sleep upright. He sleeps mostly in the recliner. He laid down to rest and started coughing and choking. 1. Acute hypoxic respiratory insufficiency secondary to aspiration pneumonia/suspected gram-negative pneumonia, resolved, patient did not qualify for oxygen on ambulation. 2. Aspiration pneumonia/suspected gram-negative pneumonia, right-sided, history of recurrent aspiration pneumonia, status post esophagectomy for metastatic esophageal CA, initially on meropenem day 3, switched to oral Augmentin for 1 more week. Patient sleeps in a recliner. He was prescribed a hospital bed to help him to sit up better and also to sleep in an almost 90? angle. Also discharged on simethicone, he is on PPI also. He will follow-up with a speech therapist in the outpatient, he is on nectar thick liquids. 3. 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 4. History of DVT, on Xarelto 5. Chronic back pain, on chronic pain medications, following Dr. Vance in the outpatient Discharge Diet: No Restrictions - Jun[place] thick liquids, follows up with speech therapist in the outpatient Discharge Activity: Return to Normal Activity Home Medications: Medications to take at Discharge Loratadine [Claritin] 10 mg PO DAILY PRN 08/10/15 Biocellular 2 cap PO TIDCM 06/12/17 D3k2 2 each PO BID 06/12/17 Ling Harinder 2 each PO BID 06/12/17 Macrophage 0.4 units SQ DAILY 06/12/17 Macrophage [place] 0.5 units INHALATION DAILY 06/12/17 Oxycodone HCl 5 mg SL Q4H PRN PRN 06/12/17 Performance 2 cap PO TIDCM 06/12/17 Rivaroxaban [Xarelto] 20 mg PO DAILY 06/12/17 Sea Extract 15 drop PO BID 06/12/17 Ultra Pro 2 cap PO TID 06/12/17 Guaifenesin [Mucinex] 1,200 mg PO BID PRN PRN 07/23/17 Methadone HCl [Methadose] 10 mg PO BID 07/23/17 Naldemedine Tosylate [Symproic] 0.2 mg PO 07/24/17 Amoxicillin/Potassium Clav [Augmentin 875-125 Tablet] 1 ea PO BID #14 tab 07/27/17 Docusate Sodium [Colace] 100 mg PO BID #60 cap 07/27/17 Gabapentin [Neurontin] 300 mg PO BID@0600,1800 #60 cap 07/27/17 Glucerna Shake 120 ml PO 4X/DAY #100 liquid 07/27/17 SimETHICONE [Mylicon] 80 mg PO TIDPC #90 tab 07/27/17 Following Prescrptions Were Given to Patient: Gabapentin [Neurontin] 300 mg PO BID@0600,1800 #60 cap SimETHICONE [Mylicon] 80 mg PO TIDPC #90 tab Amoxicillin/Potassium Clav [Augmentin 875-125 Tablet] 1 ea PO BID #14 tab Docusate Sodium [Colace] 100 mg PO BID #60 cap Glucerna Shake 120 ml PO 4X/DAY #100 liquid Primary Care Physician: Yuriy Franz III, MD [Primary Care Provider] - Please follow up with your Primary Care Physician in: within 2 weeks Please Follow Up With: Rahul Gomez DO When: within 2 week When: Speech therapy in the outpatient as discussed Disposition: Home Minutes spent on discharge:: 55 Patient Condition:: Fair Medical Necessity - Tobacco Use Smoking Status: Former smoker Tobacco Use: Non-smoker Meaningful Use Info Meaningful Use Diagnoses (Choose all that apply): None applicable Code Visit Inpatient E&M: 14816 Disch Hosp
--- NOTE | 2017-07-27 13:23 | PCA ---
pt discharge information faxed to [facility] regarding hospital bed, received a call back from juan alberto Ford stated that he will contact Shashi tomorrow fridayjuly 28 to set up a time for delivery of bed, Logan has shashi's cellphone number, shashi aware of the plan
== END 2017-07-27 14:30 | disposition home or self-care (01) | DRG 178 ==
LOC: ED 23:36 → MS3 07-24 02:46
PROVIDERS: Emergency Provider Emergency Medicine; Family Provider Family Medicine; PCP Family Medicine; Visit Provider Internal Medicine
DX: J15.6 Pneumonia due to other Gram-negative bacteria (principal); C77.9 Secondary and unspecified malignant neoplasm of lymph node, unspecified; C16.0 Malignant neoplasm of cardia; E87.1 Hypo-osmolality and hyponatremia; R64 Cachexia; Z68.1 Body mass index [BMI] 19.9 or less, adult; J69.0 Pneumonitis due to inhalation of food and vomit; G89.29 Other chronic pain; M54.5 Low back pain; Z86.718 Personal history of other venous thrombosis and embolism; R09.02 Hypoxemia; R06.89 Other abnormalities of breathing; I10 Essential (primary) hypertension; Z87.891 Personal history of nicotine dependence
CPT/HCPCS: 36415; 71045; 71046; 74019; 80048; 80053; 80202; 81001; 83605; 84484; 85025; 85610; 85730; 87040; 87086; 87449; 92507; 92526; 93005; 94640; 94667; 94668; 99285; J2185; J7030; J7040; J7050; A4216

== ENCOUNTER 2017-08-04 15:15 | Inpatient (IN) | payer OTHER, SELFPAY ==
[2017-08-04 15:16] VITALS: BP 108/81; PULSE 102; RESP 24; TEMP 36.4; O2SAT 97; BMI 17.4
--- NOTE | 2017-08-04 15:46 | EKG12_ITS ---
Test Reason : AB PAIN Blood Pressure : / mmHG Vent. Rate : 098 BPM Atrial Rate : 098 BPM P-R Int : 124 ms QRS Dur : 096 ms QT Int : 364 ms P-R-T Axes : 050 067 088 degrees QTc Int : 464 ms Normal sinus rhythm Normal ECG Confirmed by NIHARIKA COOK, BRETT ([id number]), editor in chief newspaper RHONDA PRADO ([id number]) on 08/08/2017 8:29:48 AM Referred By: Confirmed By:BRETT BUNDY MD
--- NOTE | 2017-08-04 15:47 | ED.VISSUMM ---
- ER Visit Summary Date of Service: 08/04/17 Chief Complaint: No pain History of Present Illness: The patient is a 57-year-old with abdominal pain for 1 month. He has a history of esophageal cancer status post esophagectomy, he had a recent CT and another CT yesterday which showed progression of his metastatic disease, his liver lesions are increasing, he has adenopathy around his aortic lymphatics, he has difficulty eating and drinking secondary to his pain. There are no new symptoms today, however today he just cannot stand the pain any longer. He is in pain management but it is not taking care of his pain. He has no fever or chills. He has no chest pain or shortness of breath although he is on oxygen from a prior pneumonia. Physical Examination: Chronically cachectic, chronically ill-appearing Dry mucous membranes, no obvious facial deformity No C-spine tenderness supple neck. Regular rhythm, slightly tachycardic without any obvious murmurs Breast sounds, he is not in respiratory distress, he is unable to speak only whisper secondary to some sort of vocal cord dysfunction which she has had. Abdomen soft with diffuse tenderness, no specific tenderness. There is no guarding or rebound. There is no edema or fluid wave. Moves all extremities without any difficulty or pain. Skin does not show any obvious rashes or lesions, no trauma. Alert oriented ?3 with no gross focal deficit Test Results: [] Emergency Department Course and Treatment: She was treated with multiple doses of analgesics, he continues to have quite a bit of pain. He cannot tolerate p.o., I will admit him for further workup. Disposition: Admit, guarded condition Impression: Intractable abdominal pain secondary to metastatic esophageal cancer This note was generated with [employer] dictation software. It may contain incorrect words, spelling, and punctuation that were not noted in review of the chart prior to signing ED Disposition - Plan for ED Patient: Chief Complaint: Abd Pain Referrals: Yuriy Franz III, MD [Primary Care Provider] -
[2017-08-04 16:10] LABS: Absolute Lymphocyte Count 0.28 X10^3/ul (0.83-4.51); Absolute Neutrophil Count 10.7 X10^3/uL (2.0-7.7); Basophil# 0.01 X10^3/uL; Basophil% 0.1 % (0-1); Eosinophil# 0.02 X10^3/uL; Eosinophils% 0.2 % (0-5); Hematocrit 31.8 % (40-54); Hemoglobin 10.5 g/dl (13.0-16.5); Lymphocyte # 0.28 X10^3/ul (4.0); Lymphocyte % 2.4 % (19-41); Mean Corpuscular Hgb 29.9 pg (27.0-32.0); Mean Corpuscular Volume 90.6 fL (80-94); Monocyte# 0.73 X10^3/uL; Monocyte% 6.2 % (0-10); Neutrophil # 10.72 X10^3/uL (2.7-7.7); Neutrophil % 90.8 % (47-70); Platelet Count 329 K/mm3 (150-450); RBC Distribution Width CV 14.5 % (11.6-14.6); RBC Distribution Width SD 46.9 fl (35.1-43.9); Red Blood Count 3.51 M/mm3 (4.6-6.2); White Blood Count 11.8 K/mm3 (4.4-11.0)
[2017-08-04 16:12] LABS: Differential Indicated SCAN CRITERIA MET; POSITIVE COUNT NO; POSITIVE DIFFERENTIAL YES; POSITIVE MORPHOLOGY NO
[2017-08-04 16:32] LABS: Differential Comment SCANNED
[2017-08-04 16:37] LABS: ALB/GLOB Ratio 0.5 RATIO (0.9-2.4); AST(SGOT) 67 U/L (15-37); Alanine Aminotransfer ALT/SGPT 13 U/L (16-61); Albumin, Serum 2.4 g/dL (3.2-5.0); Alkaline Phosphatase 99 U/L (45-117); Anion Gap 11 (5-15); BUN 15 mg/dL (7-18); BUN/Creat Ratio 19.8 RATIO (10-20); Calcium,Total 9.1 mg/dL (8.5-10.1); Chloride 91 mmol/L (98-107); Creatinine, Serum 0.76 mg/dL (0.70-1.30); EST Glomerular Filtration Rate 112 mL/min (>60); Est Glom Filt Rate - Afr Amer 135 mL/min (>60); Estimated Creatinine Clearance 89.72 ml/min; Globulin 4.6 g/dL (2.2-4.2); Glucose 93 mg/dL (74-106); Lipase 343 U/L (73-393); Potassium 4.1 mmol/L (3.5-5.1); Sodium Level 133 mmol/L (136-145)
--- NOTE | 2017-08-04 16:44 | ED.RN ---
DR. CALDERA INFORMED OF BEING UNABLE TO OBTAIN IV IN PT. PT FAMILY INFORMED OF WAITING FOR DR. CALDERA TO EVALUATE FOR IJ IV. PT GIVEN MOUTH SWABS. AT BEDSIDE,. DENIES FURTHER NEEDS AT THIS TIME.
[2017-08-04 17:27] VITALS: BP 101/79; PULSE 96; RESP 14; O2SAT 96
[2017-08-04] MEDS: HYDROmorphone 1 MG/ML Syringe IV ×2 (17:32→18:40)
[2017-08-04] MEDS: 0.9% Normal Saline 1,000 ML 1000 ML IV (17:32)
[2017-08-04] MEDS: Ondansetron 4 MG/2 ML Vial IV (17:35)
[2017-08-04 18:28] VITALS: BP 98/77; PULSE 100; RESP 23; O2SAT 97
[2017-08-04 19:18] VITALS: BP 107/64; PULSE 90; RESP 12; O2SAT 100
--- NOTE | 2017-08-04 19:19 | ED.RN ---
pt reports continued abdominal pain. rates pain 7/10. reports, the last pain medication only took the edge off, can you ask for something stronger. dr. ambrose informed. awaiting further orders, will continue to monitor. dr. ambrose informed of pt growing sob when trying to give uurine sample. urine sample was unsuccessful.
[2017-08-04 20:07] VITALS: BMI 17.4
--- NOTE | 2017-08-04 20:13 | HP.PCM_ITS ---
Problem List (1) Metastasis from esophageal cancer Status: Chronic (2) Chronic back pain Status: Chronic Qualifiers: (3) Abdominal pain Status: Acute Qualifiers: Abdominal location: generalized Qualified Code(s): R10.84 - Generalized abdominal pain History of Present Illness Date of Admission: 08/04/17 Chief Complaint: intractable abdominal pain The patient is a 57 year old male patient with a history of metastatic esophageal cancer presents to the ER with abdominal pain. He has not been able to eat due to pain afterwards. His pain is 9/10 and is generalized over the entire abdomen. He was admitted recently for aspiration pneumonia. He complains of having an appetite yet fear of eating due to worse post prandial pain. He has had a recent CT scan which shows progression of his metastatic disease. Despite several doses of Dilaudid in the ER over a four hour period his pain remains uncontrolled. He will be admitted for further pain management. Past Medical History Past Medical History (Chronic Problems): Chronic Problems Metastasis from esophageal cancer (Chronic) Chronic back pain (Chronic) Allergies aspirin Allergy (Verified 08/04/17 15:15) Unknown Penicillins Allergy (Verified 08/04/17 15:15) Rash STEROIDS Adverse Reaction (Uncoded 08/04/17 15:15) Pt is not to have d/t alternative cancer therapy Home Medications: Ambulatory Orders Medication Instructions Recorded Loratadine [Claritin] 10 mg PO DAILY PRN 08/10/15 Biocellular 2 cap PO TIDCM 06/12/17 D3k2 2 each PO BID 06/12/17 Ling Harinder 2 each PO BID 06/12/17 Macrophage 0.4 units SQ DAILY 06/12/17 Macrophage [place] 0.5 units INHALATION DAILY 06/12/17 Oxycodone HCl 5 mg SL Q4H PRN PRN 06/12/17 Performance 2 cap PO TIDCM 06/12/17 Rivaroxaban [Xarelto] 20 mg PO DAILY 06/12/17 Sea Extract 15 drop PO BID 06/12/17 Ultra Pro 2 cap PO TID 06/12/17 Guaifenesin [Mucinex] 1,200 mg PO BID PRN PRN 07/23/17 Methadone HCl [Methadose] 10 mg PO BID 07/23/17 Naldemedine Tosylate [Symproic] 0.2 mg PO DAILY 07/24/17 Gabapentin [Neurontin] 300 mg PO BID@0600,1800 #60 cap 07/27/17 Glucerna Shake 120 ml PO 4X/DAY #100 liquid 07/27/17 SimETHICONE [Mylicon] 80 mg PO TIDPC #90 tab 07/27/17 Surgical History: - - Esophagectomy with gastric pull-up Smoking Status: Former smoker Review of Systems Constitutional: Reports: Malaise, Weakness, Fatigue. Denies: Chills, Fever, Weight Change HEENT: Reports: Difficulty Swallowing, Dysphasia. Denies: Head Aches, Sinus Congestion, Sinus Drainage Cardiovascular: Denies: Chest Pain, Palpitations Respiratory: Denies: Cough, Shortness of breath at rest, Sputum production Gastrointestinal: Reports: Abdominal Pain, Nausea Genitourinary: Denies: Dysuria Musculoskeletal: Reports: Back Pain. Denies: Joint Pain, Joint Tenderness Skin: Denies: Rash, Wounds Neurological: Denies: Numbness, Tingling, Focal weakness Psychiatric: Denies: Anxiety, Depression, Homicidal Ideations, Suicidal Ideations Hematologic/ Lymphatic: Denies: Easy Bruising, Easy Bleeding VTE Information - Inpt Only VTE Present on Admission: No VTE Mechan Device Prophylaxis: None VTE Pharm Prophylaxis ordered?: Yes Patient Problems: Active and Suspected Problems Abdominal pain (Acute) - Physical Exam General: Alert, Oriented x3, Cooperative HEENT: Atraumatic, Normocephalic Neck: Supple Lungs: Normal air movement, Rhonchi Cardiovascular: Regular rate, Normal S1, Normal S2, No murmurs Abdomen: Hypoactive Bowel Sounds, Rigid, Tender Extremities: Capillary Refill Less than 3 Seconds Skin: No rashes, No breakdown Musculoskeletal: No Tenderness to Palpation of Joints or Extremities Neurological: Neuro grossly intact Psych/Mental Status: Normal Affect, Appropriate Vital Signs Temp Pulse Resp BP Pulse Ox 97.5 F L 90 12 107/64 100 08/04/17 15:16 08/04/17 19:18 08/04/17 19:18 08/04/17 19:18 08/04/17 19:18 Oxygen Flow Rate (L/min) 2.5 Oxygen Delivery Method Nasal Cannula Weight: 132 lb Body Mass Index (BMI) 17.4 Laboratory Tests Past 24 Hrs 08/04/17 08/04/17 15:57 15:57 WBC 11.8 H RBC 3.51 L Hgb 10.5 L Hct 31.8 L MCV 90.6 MCH 29.9 MCHC 33.0 RDW 14.5 RDW Differential 46.9 H Plt Count 329 MPV 10.0 Immature Gran % (Auto) 0.300 Neut % (Auto) 90.8 H Lymph % (Auto) 2.4 L [place] % (Auto) 6.2 Eos % (Auto) 0.2 Baso % (Auto) 0.1 Absolute Neuts (auto) 10.7 H Absolute Lymphs (auto) 0.28 L Total Counted Not Reportable Differential Comment SCANNED Sodium 133 L Potassium 4.1 Chloride 91 L Carbon Dioxide 31.0 Anion Gap 11 BUN 15 Creatinine 0.76 Estim Creat Clear Calc 89.72 Est GFR (MDRD) Af Amer 135 Est GFR (MDRD) Non-Af 112 BUN/Creatinine Ratio 19.8 Glucose 93 Calcium 9.1 Total Bilirubin 0.50 AST 67 H ALT 13 L Alkaline Phosphatase 99 Total Protein 7.0 Albumin 2.4 L Globulin 4.6 H Albumin/Globulin Ratio 0.5 L Lipase 343 Assessment/Plan All Active Problems Aspiration pneumonia (Acute) Hypotension (Acute) Gram-negative pneumonia (Acute) Abdominal pain (Acute) Chronic Problems Metastasis from esophageal cancer (Chronic) Chronic back pain (Chronic) Plan - admit to general medical floor - soft diet as tolerated - consult Dr Vance for pain management - dilaudid 1mg IV q 2hrs - cbc, cmp , pre albumin in am - speech therapy consult - D51/2 NS with 20meq KCL at 125cc/hr Code Visit Inpatient E&M: 30357 Init Hosp L3
[2017-08-04 20:59] VITALS: BMI 17.3
[2017-08-04 21:16] VITALS: BP 88/63; PULSE 87; RESP 16; TEMP 36.6; O2SAT 100
[2017-08-04] MEDS: Methadone 10 MG Tablet PO (21:57)
[2017-08-04] MEDS: oxyCODONE 5 MG Tablet PO (22:09)
[2017-08-04] MEDS: Rivaroxaban 20 MG Tablet PO (22:10)
[2017-08-04] MEDS: Gabapentin 300 MG Capsule PO (22:10)
[2017-08-04] MEDS: 0.9% NaCl Peripheral Flush Adult/Peds IV (22:27)
[2017-08-05] MEDS: oxyCODONE Soln 5 MG/0.25 ML PO.SYRINGE SL ×5 (01:17→20:06)
[2017-08-05 01:48] VITALS: BP 98/70; PULSE 87; RESP 20; TEMP 36.4; O2SAT 98
[2017-08-05] MEDS: HYDROmorphone 1 MG/ML Syringe IV ×4 (01:55→15:24)
[2017-08-05] MEDS: Gabapentin 300 MG Capsule PO ×2 (05:24→18:44)
[2017-08-05 05:49] LABS: Mucous, Urine 0 SEEN /hpf (<or=2+); Red Blood Cells-Urine 0 SEEN /hpf (0-5)
[2017-08-05 05:50] LABS: Color, Urine Yellow (Yellow); Glucose, Dipstick Normal (Normal); Ketone-Dipstick 50 mg/dl (Negative); Leukocyte Esterase-Dipstick 25 /ul (Negative); Nitrite-Dipstick Negative (Negative); Occult Blood-Urine Negative /ul (Negative); Protein-Dipstick 15 mg/dl (Negative); Specific Gravity, Urine 1.015 (1.002-1.030); Urine Bilirubin Dipstick Negative (Negative); Urine Clarity Sl. Cloudy (Clear); Urine Urobilinogen 1 mg/dl (Normal)
[2017-08-05 05:56] LABS: Squamous Epithelial Cells - UA 0-5 SEEN /hpf (0-5)
[2017-08-05 05:57] LABS: Bacteria RARE /hpf (None Seen); White Blood Cells 0-5 SEEN /hpf (0-5)
[2017-08-05 05:59] LABS: Absolute Lymphocyte Count 0.35 X10^3/ul (0.83-4.51); Basophil# 0.02 X10^3/uL; Basophil% 0.2 % (0-1); Eosinophil# 0.05 X10^3/uL; Eosinophils% 0.5 % (0-5); Hematocrit 29.3 % (40-54); Hemoglobin 9.5 g/dl (13.0-16.5); Lymphocyte # 0.35 X10^3/ul (4.0); Lymphocyte % 3.8 % (19-41); Mean Corp Hgb Conc 32.4 g/gl (32-36); Mean Corpuscular Hgb 30.1 pg (27.0-32.0); Mean Corpuscular Volume 92.7 fL (80-94); Mean Platelet Vol. 9.9 fl (6.2-12.0); Monocyte# 0.66 X10^3/uL; Monocyte% 7.2 % (0-10); Neutrophil # 7.97 X10^3/uL (2.7-7.7); Neutrophil % 87.6 % (47-70); Platelet Count 287 K/mm3 (150-450); RBC Distribution Width CV 14.2 % (11.6-14.6); RBC Distribution Width SD 46.4 fl (35.1-43.9); Red Blood Count 3.16 M/mm3 (4.6-6.2); White Blood Count 9.1 K/mm3 (4.4-11.0)
[2017-08-05 06:00] LABS: Differential Indicated SCAN CRITERIA MET; POSITIVE COUNT NO; POSITIVE DIFFERENTIAL YES; POSITIVE MORPHOLOGY NO
[2017-08-05 06:27] LABS: Differential Comment SCANNED
[2017-08-05 06:28] LABS: ALB/GLOB Ratio 0.6 RATIO (0.9-2.4); AST(SGOT) 55 U/L (15-37); Alanine Aminotransfer ALT/SGPT 12 U/L (16-61); Albumin, Serum 2.3 g/dL (3.2-5.0); Alkaline Phosphatase 84 U/L (45-117); Anion Gap 8 (5-15); BUN 13 mg/dL (7-18); BUN/Creat Ratio 18.6 RATIO (10-20); Calcium,Total 8.8 mg/dL (8.5-10.1); Chloride 95 mmol/L (98-107); EST Glomerular Filtration Rate 123 mL/min (>60); Est Glom Filt Rate - Afr Amer 149 mL/min (>60); Estimated Creatinine Clearance 96.82 ml/min; Glucose 134 mg/dL (74-106); Potassium 4.3 mmol/L (3.5-5.1); Prealbumin 5.3 mg/dL (20.0-40.0); Protein, Total 6.3 g/dL (6.4-8.2); Sodium Level 134 mmol/L (136-145)
[2017-08-05 07:50] VITALS: BP 96/57; PULSE 86; RESP 16; TEMP 36.4; O2SAT 100
[2017-08-05] MEDS: 0.9% NaCl Peripheral Flush Adult/Peds IV ×3 (08:16→15:24)
--- NOTE | 2017-08-05 08:19 | NURSING ---
pt insistent on taking dilaudid after just receiving the oxyfast. i want to stick with the regimen. he asked how freq the dilaudid was scheduled, i explained it is q2h prn but did not suggest taking it that freq unless needed and should not really take when he just took the othaer pain meds. he explained that the dilaudid helps his abd pain better and the oxyfast helps his back pain better but agrees that he should not take freq together
[2017-08-05 10:50] VITALS: BP 91/64; PULSE 84; RESP 16; O2SAT 97
--- NOTE | 2017-08-05 11:08 | PN_ITS ---
Patient Problems: Active and Suspected Problems Abdominal pain (Acute) Subjective: Patient known to me from the last admission. Admitted at this time with worsening epigastric pain. States pain is now fairly controlled. Denies any fever or chills or cough. He had a hospital bed from the previous admission but states the bed is not right for him, feels a bit need to be changed, on like the current hospital bed that he has. Vitals/I&O's: Vital Signs Temp Pulse Resp BP Pulse Ox 97.6 F L 84 16 91/64 97 08/05/17 07:50 08/05/17 10:50 08/05/17 10:50 08/05/17 10:50 08/05/17 10:50 Oxygen Flow Rate (L/min) 2.5 Oxygen Delivery Method Nasal Cannula Weight: 59.506 kg Body Mass Index (BMI) 17.3 Intake and Output for Last 24 Hours 08/03/17 08/04/17 08/05/17 23:59 23:59 23:59 Intake Total 1074 / 1074 Output Total 200 / 200 Balance 874 / 874 General: Alert, Oriented x3, Cooperative, - - cachetic HEENT: Atraumatic, PERRLA, EOMI, Normocephalic Oral: Moist Mucosa Neck: Supple Lungs: Clear to auscultation, Normal air movement Cardiovascular: Regular rate, Regular Rhythm, Normal S1, Normal S2, No murmurs Abdomen: Bowel Sounds Present, Soft, Non Tender, Non-Distended, No Hepato- splenomegaly Extremities: No edema Skin: No rashes, No breakdown Musculoskeletal: No Tenderness to Palpation of Joints or Extremities Lymphatic: No Cervical, Supraclavicular, or Inguinal Adenopathy Neurological: Cranial nerves II-XII grossly intact, Neuro grossly intact Psych/Mental Status: Normal Affect, Appropriate Laboratory Results 08/05/17 05:30: WBC 9.1, RBC 3.16 L, Hgb 9.5 L, Hct 29.3 L, MCV 92.7, MCH 30.1, MCHC 32.4, RDW 14.2, RDW Differential 46.4 H, Plt Count 287, MPV 9.9, Immature Gran % (Auto) 0.700, Neut % (Auto) 87.6 H, Lymph % (Auto) 3.8 L, [place] % (Auto) 7.2, Eos % (Auto) 0.5, Baso % (Auto) 0.2, Absolute Neuts (auto) 8.0 H, Absolute Lymphs (auto) 0.35 L, Total Counted Not Reportable, Differential Comment SCANNED 08/05/17 05:30: Sodium 134 L, Potassium 4.3, Chloride 95 L, Carbon Dioxide 31.0 , Anion Gap 8, BUN 13, Creatinine 0.70, Estim Creat Clear Calc 96.82, Est GFR ( MDRD) Af Amer 149, Est GFR (MDRD) Non-Af 123, BUN/Creatinine Ratio 18.6, Glucose 134 H, Calcium 8.8, Total Bilirubin 0.50, AST 55 H, ALT 12 L, Alkaline Phosphatase 84, Total Protein 6.3 L, Albumin 2.3 L, Globulin 4.0, Albumin/ Globulin Ratio 0.6 L, Prealbumin 5.3 L 08/05/17 05:46: Urine Color Yellow, Urine Clarity Sl. Cloudy, Urine pH 6.0, Ur Specific [place] 1.015, Urine Protein 15 H, Urine Glucose (UA) Normal, Urine Ketones 50 H, Urine Occult Blood Negative, Urine Nitrite Negative, Urine Bilirubin Negative, Urine Urobilinogen 1 H, Ur Leukocyte Esterase 25 H, Urine RBC 0 SEEN, Urine WBC 0-5 SEEN, Ur Squamous Epith Cells 0-5 SEEN, Urine Bacteria RARE, Urine Mucus 0 SEEN Current Medications Gabapentin (Neurontin) 300 mg PO BID@0600,1800 [facility] Last Admin: 08/05/17 05:24 Dose: 300 mg Guaifenesin (Mucinex) 1,200 mg PO BID PRN PRN PRN Reason: COUGH Hydromorphone HCl (Dilaudid Inj) 1 mg IV Q2H PRN PRN PRN Reason: SEVERE PAIN (6-10/10) Last Admin: 08/05/17 08:17 Dose: 1 mg Potassium Chloride/Dextrose/Sod Cl (Kcl 20meq In D5.45ns 1000ml) 1,000 mls @ 125 mls/hr IV .Q8H [facility] Last Admin: 08/05/17 05:24 Dose: 125 mls/hr Loratadine (Claritin) 10 mg PO DAILY PRN PRN PRN Reason: ALLERGIES Magnesium Hydroxide (Milk Of Magnesia) 30 ml PO DAILY PRN PRN PRN Reason: Constipation Methadone HCl () 10 mg PO BID [facility] Last Admin: 08/04/17 21:57 Dose: 10 mg Nutritional Formula (Lactose Free) (Glucerna Shake) 120 ml PO TIDCM [facility] Ondansetron HCl (Zofran) 4 mg IV Q6H PRN PRN PRN Reason: NAUSEA Oxycodone HCl (Oxyfast) 5 mg SL Q3H PRN PRN PRN Reason: SEVERE PAIN (6-10/10) Last Admin: 08/05/17 08:07 Dose: 5 mg Rivaroxaban (Xarelto) 20 mg PO DAILY [facility] Last Admin: 08/04/17 22:10 Dose: 20 mg Simethicone (Mylicon) 80 mg PO TIDPC [facility] Last Admin: 08/05/17 08:02 Dose: 80 mg Sodium Chloride () 5 - 30 ml IV UD PRN PRN Reason: SALINE FLUSH Last Admin: 08/05/17 08:16 Dose: 10 ml Medical Necessity - Tobacco Use Smoking Status: Former smoker Assessment/Plan All Active Problems Aspiration pneumonia (Acute) Hypotension (Acute) Gram-negative pneumonia (Acute) Abdominal pain (Acute) 57-year-old male with past medical history of metastatic esophageal CA, chronic back pain, DVT on Xarelto comes in with acute on chronic abdominal pain and early satiety. 1. Acute abdominal pain, likely secondary to progression of his metastatic lesions with increasing liver lesions and adenopathy around his aortic lymphatics, pain is fairly controlled on Dilaudid, pain management consulted, will get records from the [facility]. 2. 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 Patient is amendable to receive palliative care at home. 3. History of DVT, on Xarelto 4. Chronic back pain, on chronic pain medications, following Dr. Vance in the outpatient 5. DVT prophylaxis -Xarelto 6. Code Status: Full code Code Visit Inpatient E&M: 76203 Subs Hosp L3
[2017-08-05] MEDS: Rivaroxaban 20 MG Tablet PO (11:21)
[2017-08-05] MEDS: Methadone 10 MG Tablet PO (11:21)
[2017-08-05] MEDS: Glucerna Shake 120 ML LIQUID PO ×2 (11:32→18:43)
[2017-08-05 14:00] VITALS: BP 110/74; PULSE 84; RESP 18; TEMP 36.4; O2SAT 100
--- NOTE | 2017-08-05 14:00 | CASEMGMT ---
CRISTINA CHRISTENSEN Face to Face with patient for initial transition planning/care coordination assessment. CRISTINA CHRISTENSEN introduced self and role at [facility]. Patient lying in bed, alert and oriented, at bedside. Patient willing to participate in assessment and is able to answer all questions appropriately. Care providers, pharmacy, and demographics verified. Patient lives in a home with his . Patient has a hospital bed that he is not satisfied with, walker, portablel oxygen at home. Patient is requesting a new hospital bed, CRISTINA CHRISTENSEN provided number of [facility] company that hospital bed was setup through. Patient and are requesting a consult with palliative care. CRISTINA CHRISTENSEN updated SHUBHAM Woo and Dr. Bowman regarding palliative consult. Patient wishes to discharge home with palliative care. Patient states he has no further needs or concerns at this time. CM to follow for discharge planning needs that may arise. Patient is a readmit. Last admission was 07/24/17 for pneumonia. Patient was setup with hospital bed through [facility] for risk of aspiration. Patient was also setup with outpatient speech therapy through [facility]. Disposition Plan: Patient to discharge home with palliative care, family support, and follow-up plans in place.
--- NOTE | 2017-08-05 14:30 | CASEMGMT ---
Social Work Note RN AMPARO Gonzalez updated this SW that pt is agreeable to Palliative Care referral. SW spoke with [facility] and provided referral. SW faxed clinicals to [facility]. Plan: Palliative care is to meet with pt Sharon Woo RELAY TECHNICIAN, CUSHION MAKER HAND
--- NOTE | 2017-08-05 19:03 | NURSING ---
pt wants to hold off on pain meds at this time since he basically just woke up. he is aware he will need to wait until the next nurse comes around and at that time he also agreed to actually reposition over to his side better.
[2017-08-05 20:00] VITALS: BP 93/47; PULSE 85; RESP 18; TEMP 36.6; O2SAT 96
[2017-08-05] MEDS: Bisacodyl 10 MG Suppository RECTAL (22:11)
[2017-08-06] VITALS (8 sets, daily range): BP systolic 76–115; BP diastolic 47–77; PULSE 83–94; RESP 16–18; TEMP 36.3–37.1; O2SAT 94–100
[2017-08-06] MEDS: Methadone 10 MG Tablet PO ×3 (01:36→22:55)
[2017-08-06] MEDS: HYDROmorphone 1 MG/ML Syringe IV ×6 (01:42→23:40)
[2017-08-06] MEDS: Gabapentin 300 MG Capsule PO ×2 (05:43→18:11)
[2017-08-06] MEDS: oxyCODONE Soln 5 MG/0.25 ML PO.SYRINGE SL ×4 (09:54→21:18)
[2017-08-06] MEDS: Rivaroxaban 20 MG Tablet PO (10:04)
[2017-08-06] MEDS: Glucerna Shake 120 ML LIQUID PO ×2 (10:05→12:04)
--- NOTE | 2017-08-06 11:35 | CASEMGMT ---
CRISTINA CHRISTENSEN Face to Face with patient for initial transition planning/care coordination assessment. CRISTINA CHRISTENSEN introduced self and role at [facility]. Patient lying in bed, alert and oriented, at bedside. Patient willing to participate in assessment and is able to answer all questions appropriately. Care providers, pharmacy, and demographics verified. Patient lives in a home with his . Patient has a hospital bed that he is not satisfied with, walker, portablel oxygen at home. Patient is requesting a new hospital bed, CRISTINA CHRISTENSEN provided number of [employer] [facility] company that hospital bed was setup through. Patient and are requesting a consult with palliative care. CRISTINA CHRISTENSEN updated SHUBHAM Woo and Dr. Bowman regarding palliative consult. Patient wishes to discharge home with palliative care. Patient states he has no further needs or concerns at this time. CM to follow for discharge planning needs that may arise. Patient is a readmit. Last admission was 07/24/17 for pneumonia. Patient was setup with hospital bed through [facility] for risk of aspiration. Patient was also setup with outpatient speech therapy through [facility] [employer]. Disposition Plan: Patient to discharge home with palliative care, family support, and follow-up plans in place.
[2017-08-06] MEDS: 0.9% NaCl Peripheral Flush Adult/Peds IV ×3 (11:55→19:42)
--- NOTE | 2017-08-06 12:36 | CASEMGMT ---
Addendum entered by Sharon Woo 08/06/17 14:04: SHUBHAM received call from Rochelle at [facility] stating that she submit for pre-cert. Original Note: Social Work Note [place] from [facility] updated this worker that pt doesn't want to go home at discharge as he feels unsafe and is agreeable to SNF placement at discharge. SW looked up SNF in network with pt's insurance ([facility]) and per [facility]'s website the nearest facility that they are in network is [facility] [address] in [place]. RN AMPARO placed a call to [facility] SHUBHAM and per Jul[facility] may be willing to look at pt's out of network benefits and try to get a one time contract for pt. SHUBHAM and Georgia from [facility] in to meet with pt and pt's family present. SHUBHAM informed pt and pt's family that there are no facilities in [place] that are in network with pt's insurance. SHUBHAM explained to pt and pt's family that [facility] may be willing to look at out of network benefits and see about a one time contract for pt. Pt and pt's family states understanding and agreeable to referral being sent to [facility]. SHUBHAM placed a call to Rochelle at [facility] and updated her on referral and pt's situation. Rochelle states that will look over referral and is willing to contact pt's insurance to determine out of network benefits. SHUBHAM faxed referral to Rochelle at [facility]. Plan: [facility] pending acceptance Sharon Woo COAT OPERATOR INSULATOR, CHILDREN'S AUTHOR
[2017-08-06 12:40] LABS: Anion Gap 7 (5-15); BUN 9 mg/dL (7-18); BUN/Creat Ratio 11.8 RATIO (10-20); Calcium,Total 8.4 mg/dL (8.5-10.1); Chloride 95 mmol/L (98-107); Creatinine, Serum 0.76 mg/dL (0.70-1.30); EST Glomerular Filtration Rate 111 mL/min (>60); Est Glom Filt Rate - Afr Amer 134 mL/min (>60); Estimated Creatinine Clearance 89.16 ml/min; Glucose 89 mg/dL (74-106); Potassium 4.4 mmol/L (3.5-5.1); Sodium Level 132 mmol/L (136-145)
--- NOTE | 2017-08-06 14:13 | PCM.PN.HOSP ---
Patient Problems: Active and Suspected Problems Abdominal pain (Acute) Subjective: Patient was seen and examined. He complains of his pain being fairly controlled with the current pain medication. He is afraid of being discharged because he feels his pain may not be controlled. Complains of abdominal bloatedness and constipation. Denies any chest pain no dizziness or palpitations of fever or chills. Objective: Physical exam: General: Alert, Oriented x3, Cooperative, - - cachetic HEENT: Atraumatic, PERRLA, EOMI, Normocephalic Oral: Moist Mucosa Neck: Supple Lungs: Clear to auscultation, Normal air movement Cardiovascular: Regular rate, Regular Rhythm, Normal S1, Normal S2, No murmurs Abdomen: Bowel Sounds Present, Soft, Non Tender, Non-Distended, No Hepato-splenomegaly Extremities: No edema Skin: No rashes, No breakdown Musculoskeletal: No Tenderness to Palpation of Joints or Extremities Lymphatic: No Cervical, Supraclavicular, or Inguinal Adenopathy Neurological: Cranial nerves II-XII grossly intact, Neuro grossly intact Psych/Mental Status: Normal Affect, Appropriate Vitals/I&O's: Vital Signs Temp Pulse Resp BP Pulse Ox 98.8 F 87 16 89/62 L 97 08/06/17 11:51 08/06/17 11:51 08/06/17 11:51 08/06/17 11:51 08/06/17 11:51 Oxygen Flow Rate (L/min) 2.5 Oxygen Delivery Method Nasal Cannula Weight: 59.5 kg Body Mass Index (BMI) 17.3 Intake and Output for Last 24 Hours 08/04/17 08/05/17 08/06/17 23:59 23:59 23:59 Intake Total 2198 / 2198 2708 / 2708 Output Total 350 / 350 Balance 1848 / 1848 2708 / 2708 Laboratory Results 08/06/17 11:50: Sodium 132 L, Potassium 4.4, Chloride 95 L, Carbon Dioxide 30.0, Anion Gap 7, BUN 9, Creatinine 0.76, Estim Creat Clear Calc 89.16, Est GFR (MDRD) Af Amer 134, Est GFR (MDRD) Non-Af 111, BUN/Creatinine Ratio 11.8, Glucose 89, Calcium 8.4 L Current Medications Bisacodyl (Dulcolax) 10 mg RECTAL DAILY PRN PRN PRN Reason: Constipation Last Admin: 08/05/17 22:11 Dose: 10 mg Docusate Sodium (Colace) 200 mg PO BID [facility] Gabapentin (Neurontin) 300 mg PO BID@0600,1800 [facility] Last Admin: 08/06/17 05:43 Dose: 300 mg Guaifenesin (Mucinex) 1,200 mg PO BID PRN PRN PRN Reason: COUGH Hydromorphone HCl (Dilaudid Inj) 1 mg IV Q2H PRN PRN PRN Reason: SEVERE PAIN (6-10/10) Last Admin: 08/06/17 11:55 Dose: 1 mg Potassium Chloride/Dextrose/Sod Cl (Kcl 20meq In D5.45ns 1000ml) 1,000 mls @ 100 mls/hr IV .Q10H [facility] Last Admin: 08/06/17 13:03 Dose: 100 mls/hr Loratadine (Claritin) 10 mg PO DAILY PRN PRN PRN Reason: ALLERGIES Magnesium Hydroxide (Milk Of Magnesia) 30 ml PO DAILY PRN PRN PRN Reason: Constipation Methadone HCl () 10 mg PO BID [facility] Last Admin: 08/06/17 08:54 Dose: 10 mg Nutritional Formula (Lactose Free) (Glucerna Shake) 120 ml PO TIDCM [facility] Last Admin: 08/06/17 12:04 Dose: 120 ml Ondansetron HCl (Zofran) 4 mg IV Q6H PRN PRN PRN Reason: NAUSEA Oxycodone HCl (Oxyfast) 5 mg SL Q3H PRN PRN PRN Reason: SEVERE PAIN (6-10/10) Last Admin: 08/06/17 13:04 Dose: 5 mg Rivaroxaban (Xarelto) 20 mg PO DAILY [facility] Last Admin: 08/06/17 10:04 Dose: 20 mg Senna (Senokot) 2 tablet PO BID [facility] Simethicone (Mylicon) 80 mg PO TIDPC [facility] Last Admin: 08/06/17 11:59 Dose: 80 mg Sodium Chloride () 5 - 30 ml IV UD PRN PRN Reason: SALINE FLUSH Last Admin: 08/06/17 11:55 Dose: 10 ml Medical Necessity - Tobacco Use Smoking Status: Former smoker Assessment/Plan All Active Problems Aspiration pneumonia (Acute) Hypotension (Acute) Gram-negative pneumonia (Acute) Abdominal pain (Acute) 57-year-old male with past medical history of metastatic esophageal CA, chronic back pain, DVT on Xarelto comes in with acute on chronic abdominal pain and early satiety. 1. Acute abdominal pain, likely secondary to progression of his metastatic lesions with increasing liver lesions and adenopathy around his aortic lymphatics, pain is fairly controlled on Dilaudid, patient will be seen by palliative care, he will be discharged on oral Dilaudid as well as methadone. Discussed this with Dr. Vance, patient to be followed up either by Dr. Vance or with palliative care. 2. 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 He is going to be discharged to a fpc facility. 3. History of DVT, on Xarelto 4. Chronic back pain, on chronic pain medications, following Dr. Vance in the outpatient 5. DVT prophylaxis -Xarelto 6. Code Status: Full code 7. Disposition: Possible discharge in 24-48 hours to fpc facility Code Visit Inpatient E&M: 85068 Subs Hosp L2
--- NOTE | 2017-08-06 14:16 | PN_ITS ---
Patient Problems: Active and Suspected Problems Abdominal pain (Acute) Subjective: Patient was seen and examined. He complains of his pain being fairly controlled with the current pain medication. He is afraid of being discharged because he feels his pain may not be controlled. Complains of abdominal bloatedness and constipation. Denies any chest pain no dizziness or palpitations of fever or chills. Objective: Physical exam: General: Alert, Oriented x3, Cooperative, - - cachetic HEENT: Atraumatic, PERRLA, EOMI, Normocephalic Oral: Moist Mucosa Neck: Supple Lungs: Clear to auscultation, Normal air movement Cardiovascular: Regular rate, Regular Rhythm, Normal S1, Normal S2, No murmurs Abdomen: Bowel Sounds Present, Soft, Non Tender, Non-Distended, No Hepato- splenomegaly Extremities: No edema Skin: No rashes, No breakdown Musculoskeletal: No Tenderness to Palpation of Joints or Extremities Lymphatic: No Cervical, Supraclavicular, or Inguinal Adenopathy Neurological: Cranial nerves II-XII grossly intact, Neuro grossly intact Psych/Mental Status: Normal Affect, Appropriate Vitals/I&O's: Vital Signs Temp Pulse Resp BP Pulse Ox 98.8 F 87 16 89/62 L 97 08/06/17 11:51 08/06/17 11:51 08/06/17 11:51 08/06/17 11:51 08/06/17 11:51 Oxygen Flow Rate (L/min) 2.5 Oxygen Delivery Method Nasal Cannula Weight: 59.5 kg Body Mass Index (BMI) 17.3 Intake and Output for Last 24 Hours 08/04/17 08/05/17 08/06/17 23:59 23:59 23:59 Intake Total 2198 / 2198 2708 / 2708 Output Total 350 / 350 Balance 1848 / 1848 2708 / 2708 Laboratory Results 08/06/17 11:50: Sodium 132 L, Potassium 4.4, Chloride 95 L, Carbon Dioxide 30.0 , Anion Gap 7, BUN 9, Creatinine 0.76, Estim Creat Clear Calc 89.16, Est GFR ( MDRD) Af Amer 134, Est GFR (MDRD) Non-Af 111, BUN/Creatinine Ratio 11.8, Glucose 89, Calcium 8.4 L Current Medications Bisacodyl (Dulcolax) 10 mg RECTAL DAILY PRN PRN PRN Reason: Constipation Last Admin: 08/05/17 22:11 Dose: 10 mg Docusate Sodium (Colace) 200 mg PO BID [facility] Gabapentin (Neurontin) 300 mg PO BID@0600,1800 [facility] Last Admin: 08/06/17 05:43 Dose: 300 mg Guaifenesin (Mucinex) 1,200 mg PO BID PRN PRN PRN Reason: COUGH Hydromorphone HCl (Dilaudid Inj) 1 mg IV Q2H PRN PRN PRN Reason: SEVERE PAIN (6-10/10) Last Admin: 08/06/17 11:55 Dose: 1 mg Potassium Chloride/Dextrose/Sod Cl (Kcl 20meq In D5.45ns 1000ml) 1,000 mls @ 100 mls/hr IV .Q10H [facility] Last Admin: 08/06/17 13:03 Dose: 100 mls/hr Loratadine (Claritin) 10 mg PO DAILY PRN PRN PRN Reason: ALLERGIES Magnesium Hydroxide (Milk Of Magnesia) 30 ml PO DAILY PRN PRN PRN Reason: Constipation Methadone HCl () 10 mg PO BID [facility] Last Admin: 08/06/17 08:54 Dose: 10 mg Nutritional Formula (Lactose Free) (Glucerna Shake) 120 ml PO TIDCM [facility] Last Admin: 08/06/17 12:04 Dose: 120 ml Ondansetron HCl (Zofran) 4 mg IV Q6H PRN PRN PRN Reason: NAUSEA Oxycodone HCl (Oxyfast) 5 mg SL Q3H PRN PRN PRN Reason: SEVERE PAIN (6-10/10) Last Admin: 08/06/17 13:04 Dose: 5 mg Rivaroxaban (Xarelto) 20 mg PO DAILY [facility] Last Admin: 08/06/17 10:04 Dose: 20 mg Senna (Senokot) 2 tablet PO BID [facility] Simethicone (Mylicon) 80 mg PO TIDPC [facility] Last Admin: 08/06/17 11:59 Dose: 80 mg Sodium Chloride () 5 - 30 ml IV UD PRN PRN Reason: SALINE FLUSH Last Admin: 08/06/17 11:55 Dose: 10 ml Medical Necessity - Tobacco Use Smoking Status: Former smoker Assessment/Plan All Active Problems Aspiration pneumonia (Acute) Hypotension (Acute) Gram-negative pneumonia (Acute) Abdominal pain (Acute) 57-year-old male with past medical history of metastatic esophageal CA, chronic back pain, DVT on Xarelto comes in with acute on chronic abdominal pain and early satiety. 1. Acute abdominal pain, likely secondary to progression of his metastatic lesions with increasing liver lesions and adenopathy around his aortic lymphatics, pain is fairly controlled on Dilaudid, patient will be seen by palliative care, he will be discharged on oral Dilaudid as well as methadone. Discussed this with Dr. Vance, patient to be followed up either by Dr. Vance or with palliative care. 2. 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 He is going to be discharged to a long term facility. 3. History of DVT, on Xarelto 4. Chronic back pain, on chronic pain medications, following Dr. Vance in the outpatient 5. DVT prophylaxis -Xarelto 6. Code Status: Full code 7. Disposition: Possible discharge in 24-48 hours to long term facility Code Visit Inpatient E&M: 80298 Subs Hosp L2
[2017-08-06] MEDS: Docusate Sodium 100 MG Capsule 200 MG PO (22:55)
[2017-08-06] MEDS: Senna Tablet 2 TABLET PO (22:56)
[2017-08-07] VITALS (14 sets, daily range): BP systolic 83–113; BP diastolic 45–86; PULSE 67–130; RESP 8–38; TEMP 36.9–38.2; O2SAT 88–97
--- NOTE | 2017-08-07 00:08 | NURSING ---
Assessed pt's BP, with following pain management protocol, which was discovered to be 76/50. Contact[address] Dr. De Leon who ordered 500 cc bolus & changed pts Dilaudid dose. Pt is groggy at this time. Have explained to him the risks of compounding multiply pain meds. Pt appears to understand.
[2017-08-07] MEDS: oxyCODONE Soln 5 MG/0.25 ML PO.SYRINGE SL ×2 (03:10→06:06)
[2017-08-07] MEDS: guaiFENesin 1,200 MG Tablet 1200 MG PO (03:10)
--- NOTE | 2017-08-07 04:36 | RAD_ITS ---
STUDY: X-RAY CHEST REASON FOR EXAM: Male, 57 years old. Respiratory distress TECHNIQUE: Single frontal view of the chest. COMPARISON: 07/26/2017 FINDINGS: Progressing bibasilar alveolar disease and right pleural effusion. Stable cardiac silhouette. Normal mediastinum and paulie. Normal visualized pulmonary arteries. Normal visualized aortic arch and descending thoracic aorta. Normal visualized thoracic spine. Normal visualized ribs, clavicles, and shoulders. There is no demonstrated abnormality of the visualized soft tissue structures of the upper abdomen. RAD/Chest 1 View (Portable) IMPRESSION: Progressing bibasilar alveolar disease and right pleural effusion. Electronically Signed: Thomas Mcdaniel MD at 5:35 EDT Tel , Service support ,
[2017-08-07] MEDS: Ipratropium/Albuterol Sulfate 3 ML AMPUL.NEB INHALATION ×3 (05:54→15:38)
[2017-08-07 06:22] LABS: Absolute Lymphocyte Count 0.19 X10^3/ul (0.83-4.51); Absolute Neutrophil Count 7.9 X10^3/uL (2.0-7.7); Basophil# 0.01 X10^3/uL; Basophil% 0.1 % (0-1); Eosinophil# 0.05 X10^3/uL; Eosinophils% 0.6 % (0-5); Hematocrit 31.6 % (40-54); Hemoglobin 10.1 g/dl (13.0-16.5); Lymphocyte # 0.19 X10^3/ul (4.0); Lymphocyte % 2.2 % (19-41); Mean Corpuscular Volume 93.8 fL (80-94); Mean Platelet Vol. 9.7 fl (6.2-12.0); Monocyte# 0.29 X10^3/uL; Monocyte% 3.4 % (0-10); Neutrophil # 7.88 X10^3/uL (2.7-7.7); Neutrophil % 93.3 % (47-70); Platelet Count 357 K/mm3 (150-450); RBC Distribution Width CV 14.4 % (11.6-14.6); RBC Distribution Width SD 47.2 fl (35.1-43.9); Red Blood Count 3.37 M/mm3 (4.6-6.2); White Blood Count 8.5 K/mm3 (4.4-11.0)
[2017-08-07 06:23] LABS: Differential Indicated SCAN CRITERIA MET; POSITIVE COUNT NO; POSITIVE DIFFERENTIAL YES; POSITIVE MORPHOLOGY NO
[2017-08-07 06:31] LABS: Anion Gap 10 (5-15); BUN 9 mg/dL (7-18); BUN/Creat Ratio 11.3 RATIO (10-20); Calcium,Total 8.7 mg/dL (8.5-10.1); Chloride 94 mmol/L (98-107); EST Glomerular Filtration Rate 106 mL/min (>60); Est Glom Filt Rate - Afr Amer 128 mL/min (>60); Glucose 104 mg/dL (74-106); Potassium 4.2 mmol/L (3.5-5.1); Sodium Level 131 mmol/L (136-145)
[2017-08-07 06:39] LABS: Differential Comment SCANNED
--- NOTE | 2017-08-07 07:36 | PCM.PN.HOSP ---
Subjective: Patient was seen and examined. Overnight, he became more hypoxic, and hypotensive with systolic blood pressures around 80s. Received IV fluid boluses with minimal improvement in his blood pressure. He, however had persistent SOB, was started on Bipap. Patient is reported to have been coughing up a lot of sputum. He had complained of the nutritional supplements sticking in his throat. Discussed in depth with patient, confirmed that he is a DNR CCA, he was not sure about intubation and he said he will probably consider it if there was a chance that it would not be there for a long time and he would improve. I told him that there was no assurance of diet and very likely if we intubate him, we might not get him extubated successfully. He was okay with hospice being consulted to assess him. Discussed that in depth also with the and daughter at the bedside, they said they know he wants to be comfortable and will not like to be intubated. Vitals/I&O's: Vital Signs Temp Pulse Resp BP Pulse Ox 98.5 F 130 H 38 H 113/86 H 92 08/07/17 02:39 08/07/17 06:55 08/07/17 06:55 08/07/17 04:55 08/07/17 06:55 Oxygen Flow Rate (L/min) 2 Oxygen Delivery Method Non-Rebreather Weight: 59.5 kg Body Mass Index (BMI) 17.3 Intake and Output for Last 24 Hours 08/05/17 08/06/17 08/07/17 23:59 23:59 23:59 Intake Total 2198 / 2198 2708 / 2708 830.3 / 830.3 Output Total 350 / 350 Balance 1848 / 1848 2708 / 2708 830.3 / 830.3 General: Alert, Oriented x3, Cooperative, - - in severe respiratory distress, on bipap, cachetic HEENT: Atraumatic, PERRLA, EOMI, Normocephalic Oral: Moist Mucosa Neck: Supple Lungs: Normal air movement, Diminished - more in the right middle and lower lung zones, few crackles heard at both lung bases Cardiovascular: Regular rate, Regular Rhythm, Normal S1, Normal S2, No murmurs Abdomen: Bowel Sounds Present, Soft, Non Tender, Non-Distended, No Hepato-splenomegaly, Obese Extremities: No edema Skin: No rashes, No breakdown Musculoskeletal: No Tenderness to Palpation of Joints or Extremities Neurological: Cranial nerves II-XII grossly intact Psych/Mental Status: Normal Affect, Appropriate Laboratory Results 08/06/17 11:50: Sodium 132 L, Potassium 4.4, Chloride 95 L, Carbon Dioxide 30.0, Anion Gap 7, BUN 9, Creatinine 0.76, Estim Creat Clear Calc 89.16, Est GFR (MDRD) Af Amer 134, Est GFR (MDRD) Non-Af 111, BUN/Creatinine Ratio 11.8, Glucose 89, Calcium 8.4 L 08/07/17 05:40: WBC 8.5, RBC 3.37 L, Hgb 10.1 L, Hct 31.6 L, MCV 93.8, MCH 30.0, MCHC 32.0, RDW 14.4, RDW Differential 47.2 H, Plt Count 357, MPV 9.7, Immature Gran % (Auto) 0.400, Neut % (Auto) 93.3 H, Lymph % (Auto) 2.2 L, Sargent % (Auto) 3.4, Eos % (Auto) 0.6, Baso % (Auto) 0.1, Absolute Neuts (auto) 7.9 H, Absolute Lymphs (auto) 0.19 L, Total Counted Not Reportable, Differential Comment SCANNED 08/07/17 05:40: Sodium 131 L, Potassium 4.2, Chloride 94 L, Carbon Dioxide 27.0, Anion Gap 10, BUN 9, Creatinine 0.80, Estim Creat Clear Calc 84.70, Est GFR (MDRD) Af Amer 128, Est GFR (MDRD) Non-Af 106, BUN/Creatinine Ratio 11.3, Glucose 104, Calcium 8.7 08/07/17 05:40: B-Natriuretic Peptide Pending Current Medications Albuterol/Ipratropium (Duoneb) 3 ml INHALATION Q4H.RT CONG Last Admin: 08/07/17 05:54 Dose: 3 ml Bisacodyl (Dulcolax) 10 mg RECTAL DAILY PRN PRN PRN Reason: Constipation Last Admin: 08/05/17 22:11 Dose: 10 mg Docusate Sodium (Colace) 200 mg PO BID CONG Last Admin: 08/06/17 22:55 Dose: 200 mg Gabapentin (Neurontin) 300 mg PO BID@0600,1800 [facility] Last Admin: 08/07/17 06:15 Dose: Not Given Guaifenesin (Mucinex) 1,200 mg PO BID PRN PRN PRN Reason: COUGH Last Admin: 08/07/17 03:10 Dose: 1,200 mg Hydromorphone HCl (Dilaudid Inj) 1.5 mg IV Q3H PRN PRN PRN Reason: SEVERE PAIN (6-10/10) Potassium Chloride/Dextrose/Sod Cl (Kcl 20meq In D5.45ns 1000ml) 1,000 mls @ 100 mls/hr IV .Q10H [facility] Last Admin: 08/06/17 22:54 Dose: 100 mls/hr Piperacillin Sod/Tazobactam Sod (Zosyn) 3.375 gm in 50 mls @ 12.5 mls/hr IV Q8 [facility] Loratadine (Claritin) 10 mg PO DAILY PRN PRN PRN Reason: ALLERGIES Magnesium Hydroxide (Milk Of Magnesia) 30 ml PO DAILY PRN PRN PRN Reason: Constipation Methadone HCl () 10 mg PO BID [facility] Last Admin: 08/06/17 22:55 Dose: 10 mg Ondansetron HCl (Zofran) 4 mg IV Q6H PRN PRN PRN Reason: NAUSEA Oxycodone HCl (Oxyfast) 5 mg SL Q3H PRN PRN PRN Reason: SEVERE PAIN (6-10/10) Last Admin: 08/07/17 06:06 Dose: 5 mg Rivaroxaban (Xarelto) 20 mg PO DAILY [facility] Last Admin: 08/06/17 10:04 Dose: 20 mg Senna (Senokot) 2 tablet PO BID [facility] Last Admin: 08/06/17 22:56 Dose: 2 tablet Simethicone (Mylicon) 80 mg PO TIDPC [facility] Last Admin: 08/06/17 18:10 Dose: 80 mg Sodium Chloride () 5 - 30 ml IV UD PRN PRN Reason: SALINE FLUSH Last Admin: 08/06/17 19:42 Dose: 10 ml Medical Necessity - Tobacco Use Smoking Status: Former smoker Assessment/Plan All Active Problems Aspiration pneumonia (Acute) Hypotension (Acute) Gram-negative pneumonia (Acute) Abdominal pain (Acute) 57-year-old male with past medical history of metastatic esophageal CA, chronic back pain, DVT on Xarelto comes in with acute on chronic abdominal pain and early satiety. 1. Acute hypoxic respiratory failure secondary to aspiration pneumonitis. I highly suspect this based on the report that he was bringing up lots of sputum the whole night, complains of nutritional supplements sticking in his throat and the sudden onset of worsening respiration. Chest x-ray shows bilateral alveolar disease as well as well as right pleural effusion. I do not think this is heart failure, patient's BNP was 132. Would not give patient Lasix. We will start empiric treatment for aspiration pneumonia with IV Zosyn, continue on BiPAP and nonrebreather alternatively according to patient's comfort, hospice consulted. Patient will likely benefit from inpatient hospice facility treatment. 2. Relative hypotension, likely secondary to medication side effect and poor p.o. intake, on IV fluids, will DC IV Dilaudid, start IV fentanyl 25 mcg every 4 as needed. 3. Acute abdominal pain, likely secondary to progression of his metastatic lesions with increasing liver lesions and adenopathy around his aortic lymphatics, continue on IV fentanyl 4. 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 5. History of DVT, on Xarelto 6. Chronic back pain, on chronic pain medications, following Dr. Vance in the outpatient 7. DVT prophylaxis -Xarelto 8. Code Status:DNR-CCA 7. Disposition: Pending hospice evaluation, otherwise discharge to half-way facility I spent 25 minutes, discussing the goals of care and CODE STATUS. Patient is a DNR CCA, confirmed again this morning, he initially was thinking of possibly being intubated but later on, upon further discussion and discussions with his family he opted for no intubation. I spent 1 hour 30 minutes -multiple meetings with family to answer questions and address concerns, altogether discussing patient's plan of care and further management as well as management of his respiratory distress and discussions with the Hospice team. Patient is finally agreeable to go to the inpatient hospice facility. He was afraid that he would not get any medications if he needed help with shortness of breath or pain. He had problems with IV access and eventually had a midline placed. He was started on sublingual Roxanol and Ativan and discharged to inpatient hospice facility. Confirmed with his family and patient appeared less anxious and ready for discharge. Code Visit Inpatient E&M: 85572 Subs Hosp L3 Procedures: 33670 Prolonged InPt Service; first hour
--- NOTE | 2017-08-07 07:56 | NURSING ---
talked w/ irineo at hospice at 's request and requested their evaluation this a.m.
[2017-08-07 08:08] LABS: BNP,B-Type NATRIURETIC PEPTIDE 132.7 pg/mL (0-100)
--- NOTE | 2017-08-07 08:26 | NURSING ---
iv attempted x2 as left hand iv infiltrated. unable to get, ICU called for attempt. paged requesting her come talk to who is now at bedside.
--- NOTE | 2017-08-07 08:40 | NURSING ---
hilary RN at bedside continuing to attempt IV. remains in hallway w/ pt's /family.
[2017-08-07 08:41] LABS: Allen Test POS; Base Excess -1 mmol/L (-2 to +2); Bicarbonate 23.3 mmol/L (22-26); Blood Gas Specimen Type ART; O2 Delivery Device NRB Mask; PO2 54 mmHG (75-100); SITE L Brachial; SO2 88 % (95-99); Time Given 836; Total Carbon Dioxide 24 mmol/L; pCO2 36.5 mmHg (35-45); pH 7.41 (7.35-7.45)
--- NOTE | 2017-08-07 09:02 | NURSING ---
agriculturist nando attempting IV restart.
--- NOTE | 2017-08-07 10:03 | CPS ---
Called to room by RN, pt is not comfortable w/BiPap pressure. Decreased several times until pt felt comfortable, Bipap now on 09/13 and pt is comfortable.
[2017-08-07] MEDS: fentaNYL 100 MCG/2 ML Ampul 25 MCG IV (11:06)
[2017-08-07] MEDS: Dextrose 5%/0.9% NaCl 1,000 ML 100 ML IV (11:06)
[2017-08-07] MEDS: 0.9% NaCl Peripheral Flush Adult/Peds IV ×3 (11:07→16:44)
[2017-08-07] MEDS: Piperacil/Tazobactam 3.375 GM/50 ML ML IV (11:22)
[2017-08-07] MEDS: LORazepam 2 MG/ML Syringe 0.5 MG IV (13:44)
--- NOTE | 2017-08-07 15:06 | PCM.DC ---
- Discharge Diagnoses Current Active Problems: Current Active and Chronic Problems Abdominal pain (Acute) Reason(s) for Visit for Discharge Instructions: Abdominal pain You will use the following diet at home:: Other - NPO Allergies/Adverse Reactions: Allergies aspirin Allergy (Verified 08/04/17 15:15) Unknown Penicillins Allergy (Verified 08/04/17 15:15) Rash STEROIDS Adverse Reaction (Uncoded 08/04/17 15:15) Pt is not to have d/t alternative cancer therapy Medications to take at Discharge Loratadine [Claritin] 10 mg PO DAILY PRN 08/10/15 Biocellular 2 cap PO TIDCM 06/12/17 D3k2 2 each PO BID 06/12/17 Ling Harinder 2 each PO BID 06/12/17 Macrophage 0.4 units SQ DAILY 06/12/17 Macrophage [place] 0.5 units INHALATION DAILY 06/12/17 Oxycodone HCl 5 mg SL Q4H PRN PRN 06/12/17 Performance 2 cap PO TIDCM 06/12/17 Rivaroxaban [Xarelto] 20 mg PO DAILY 06/12/17 Sea Extract 15 drop PO BID 06/12/17 Ultra Pro 2 cap PO TID 06/12/17 Guaifenesin [Mucinex] 1,200 mg PO BID PRN PRN 07/23/17 Methadone HCl [Methadose] 10 mg PO TID 07/23/17 Gabapentin [Neurontin] 300 mg PO BID@0600,1800 08/04/17 Glucerna Shake 120 ml PO 4X/DAY 08/04/17 SimETHICONE [Mylicon] 80 mg PO TIDPC 08/04/17 Methylnaltrexone [place] [Relistor] 300 mg PO DAILY 08/05/17 Primary Care Physician: Yuriy Franz III, MD [Primary Care Provider] - Proposed Discharge Date: 08/07/17
--- NOTE | 2017-08-07 15:07 | PCM.DC.SUM ---
Discharge Date and Diagnosis Date of Admission: 08/04/17 Date of Discharge: 08/07/17 - Primary Discharge Diagnosis Active and Suspected Problems Abdominal pain (Acute) Acute respiratory failure secondary to aspiration pneumonitis - Secondary Discharge Diagnosis Chronic Problems Metastasis from esophageal cancer (Chronic) Chronic back pain (Chronic) Hospital Course and Treatment Imaging Results: Clinical Impression(s) from Imaging Studies Chest X-Ray 08/07/17 04:36 IMPRESSION: Progressing bibasilar alveolar disease and right pleural effusion. Electronically Signed: Thomas Mcdaniel MD at 5:35 EDT Tel , Service support , 57-year-old male with past medical history of metastatic esophageal CA, chronic back pain, DVT on Xarelto comes in with acute on chronic abdominal pain and early satiety. Patient has been in the hospital multiple times. Follows with oncology Dr. Gomez in the outpatient. Patient was recently discharged with aspiration pneumonia on antibiotics. He comes back despite following with pain management in the outpatient with worsening abdominal pain. Recent CT scan of the chest and abdomen has shown progressiveness of his metastatic cancer. Patient was managed on his methadone, oxycodone and IV Dilaudid. On the day of discharge, patient was found to be hypoxic and hypotensive. He was transitioned to hospice care. 1. Acute hypoxic respiratory failure secondary to aspiration pneumonitis. I highly suspect this based on the report that he was bringing up lots of sputum the whole night, complains of nutritional supplements sticking in his throat and the sudden onset of worsening respiration. Chest x-ray shows bilateral alveolar disease as well as well as right pleural effusion. I do not think this is heart failure, patient's BNP was 132. Started on empiric treatment for aspiration pneumonia with IV Zosyn, continued on BiPAP and nonrebreather mask alternatively according to patient's comfort, hospice consulted, patient qualified for inpatient hospice services. 2. Relative hypotension, likely secondary to medication side effect and poor p.o. intake, on IV fluids, IV Dilaudid stopped, started on IV fentanyl 25 mcg every 4 as needed. 3. Acute abdominal pain, likely secondary to progression of his metastatic lesions with increasing liver lesions and adenopathy around his aortic lymphatics, on methadone, oxycodone, IV Dilaudid. He was later on switched to IV fentanyl. 4. 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 5. History of DVT, on Xarelto 6. Chronic back pain, on chronic pain medications, following Dr. Vance in the outpatient Operations: None Summary of Care Provided: The patient is a 57 year old M [] Discharge Diet: No Restrictions Home Medications: Medications to take at Discharge Loratadine [Claritin] 10 mg PO DAILY PRN 08/10/15 Biocellular 2 cap PO TIDCM 06/12/17 D3k2 2 each PO BID 06/12/17 Ling Harinder 2 each PO BID 06/12/17 Macrophage 0.4 units SQ DAILY 06/12/17 Macrophage [place] 0.5 units INHALATION DAILY 06/12/17 Oxycodone HCl 5 mg SL Q4H PRN PRN 06/12/17 Performance 2 cap PO TIDCM 06/12/17 Rivaroxaban [Xarelto] 20 mg PO DAILY 06/12/17 Sea Extract 15 drop PO BID 06/12/17 Ultra Pro 2 cap PO TID 06/12/17 Guaifenesin [Mucinex] 1,200 mg PO BID PRN PRN 07/23/17 Methadone HCl [Methadose] 10 mg PO TID 07/23/17 Gabapentin [Neurontin] 300 mg PO BID@0600,1800 08/04/17 Glucerna Shake 120 ml PO 4X/DAY 08/04/17 SimETHICONE [Mylicon] 80 mg PO TIDPC 08/04/17 Methylnaltrexone [place] [Relistor] 300 mg PO DAILY 08/05/17 Primary Care Physician: Yuriy Franz III, MD [Primary Care Provider] - Disposition: Hospice Medical Facility Minutes spent on discharge:: 65 Patient Condition:: Stable Medical Necessity - Tobacco Use Smoking Status: Former smoker Meaningful Use Info Meaningful Use Diagnoses (Choose all that apply): None applicable Code Visit Inpatient E&M: 15975 Disch Hosp
[2017-08-07] MEDS: morphine (oral solution) 10MG/0.5ML Syringe 10 MG SL (16:44)
== END 2017-08-07 17:20 | disposition hospice, inpatient (51) | DRG 947 ==
LOC: ED 16:13 → MS3 20:44
PROVIDERS: Internal Medicine; Admitting Provider Family Medicine; Emergency Provider Emergency Medicine; Family Provider Family Medicine; PCP Family Medicine; Visit Provider Internal Medicine
DX: G89.3 Neoplasm related pain (acute) (chronic) (principal); J96.01 Acute respiratory failure with hypoxia; J69.0 Pneumonitis due to inhalation of food and vomit; Z68.1 Body mass index [BMI] 19.9 or less, adult; C16.0 Malignant neoplasm of cardia; C78.7 Secondary malignant neoplasm of liver and intrahepatic bile duct; M54.9 Dorsalgia, unspecified; G89.29 Other chronic pain; Z90.49 Acquired absence of other specified parts of digestive tract; Z51.5 Encounter for palliative care; Z86.718 Personal history of other venous thrombosis and embolism; Z79.01 Long term (current) use of anticoagulants; Z79.891 Long term (current) use of opiate analgesic; R64 Cachexia; Z87.891 Personal history of nicotine dependence
CPT/HCPCS: 36415; 36600; 71045; 80048; 80053; 81001; 82803; 83690; 83880; 84134; 85025; 92526; 93005; 94002; 94640; 94762; 97802; 99285; J7030; J7040; A4216; J2405